=== PATIENT | male | born 1945 | race Caucasian/White ===

== ENCOUNTER 2018-02-23 22:44 | Inpatient (IN) | payer MEDICARE ==
--- NOTE | 2018-02-23 23:03 | ED ---
General Adult HPI - General Chief complaint: Alcohol Stated complaint: EtOH withdrawal Time Seen by Provider: 02/23/18 22:49 Source: EMS, RN notes reviewed, old records reviewed (Records reviewed from [facility]) Mode of arrival: EMS Limitations: no limitations - History of Present Illness Initial comments: Patient is a pleasant 72-year-old male presenting to the emergency department with alcohol withdrawal. Patient states she normally drinks a quart or so per week. Patient states he drank a quart daily for a couple of days and then discontinued recently. Of note this is inconsistent with history from [facility]. Patient feels shaky at this time. Patient denies any confusion or any hallucinations. Patient states he has not gone through alcohol withdrawal past. At [facility] patient was found to have high lactic acid and low magnesium. Patient admits to not eating or drinking well recently. Patient denies any fever or cough or abdominal pain or dysuria. - Related Data Allergies Allergy/AdvReac Type Severity Reaction Status Date / Time No Known Allergies Allergy Verified 02/23/18 22:50 Review of Systems ROS Statement: Those systems with pertinent positive or pertinent negative responses have been documented in the HPI. ROS Other: All systems not noted in ROS Statement are negative. Constitutional: Denies: fever, chills, weakness, weight change, night sweats Eyes: Denies: eye pain ENT: Denies: ear pain Respiratory: Denies: cough Cardiovascular: Denies: chest pain Endocrine: Reports: fatigue Gastrointestinal: Denies: abdominal pain Genitourinary: Denies: dysuria Musculoskeletal: Denies: back pain Skin: Denies: rash Neurological: Denies: headache, weakness, confusion Psychiatric: Denies: auditory hallucinations, visual hallucinations Past Medical History Past Medical History: No Reported History History of Any Multi-Drug Resistant Organisms: None Reported Past Surgical History: Orthopedic Surgery Additional Past Surgical History / Comment(s): left leg surgery, right arm Past Psychological History: No Psychological Hx Reported Smoking Status: Former smoker Past Alcohol Use History: Abuse, Daily, Heavy General Exam Limitations: no limitations General appearance: alert, in no apparent distress, other (Resting tremor is present) Head exam: Present: atraumatic Eye exam: Present: normal appearance, PERRL ENT exam: Present: normal oropharynx Neck exam: Present: normal inspection Respiratory exam: Present: normal lung sounds bilaterally Cardiovascular Exam: Present: regular rate, normal rhythm GI/Abdominal exam: Present: soft. Absent: tenderness Extremities exam: Present: normal inspection Neurological exam: Present: alert, oriented X3, CN II-XII intact. Absent: motor sensory deficit Expanded Neurological exam: Present: protecting the airway Patient oriented to: Present: person, place, time Cranial nerves: EOM's Intact: Normal Motor strength exam: RUE: 5, LUE: 5, RLE: 5, LLE: 5 Eye Response: (4) open spontaneously Motor Response: (6) obeys commands Verbal Response: (5) oriented Psychiatric exam: Present: normal affect, normal mood Skin exam: Present: normal color Course Vital Signs 02/23/18 22:45 Temperature 99.0 F Pulse Rate 95 Respiratory 18 Rate Blood Pressure 174/87 O2 Sat by Pulse 97 Oximetry - Reevaluation(s) Reevaluation #1: 02/23/18 23:04 Patient is no fever and no source of infection. Patient also has no elevated white blood cell count. Patient is not felt to be sepsis criteria. Urinalysis shows no signs of infection. Chest x-ray is reported as no acute abnormality. Lactic acidosis is likely from withdrawal or dehydration. Patient received 2 mg of magnesium. Magnesium will be rechecked. Patient will have continued IV fluids. Case was discussed in detail with Dr. Holland, [facility], who will admit for hospital call. Disposition Clinical Impression: Alcohol withdrawal syndrome, Hypomagnesemia, Lactic acidosis Disposition: ADMITTED IP TO THIS HOSP Is patient prescribed a controlled substance at d/c from ED?: No Referrals: None,Stated [Primary Care Provider] - 1-2 days Decision Time: 23:07
[2018-02-23] MEDS ORDERED: LORazepam 2 MG/ML INJ IV STA (23:04)
[2018-02-23] MEDS ORDERED: SODIUM CHLORIDE 0.9% 500 ML 500 ML IV ONE (23:04)
[2018-02-23] MEDS ORDERED: THIAMINE 100 MG/ML 2 ML VIAL IM STA (23:07)
[2018-02-23] MEDS ORDERED: NALOXONE 0.4 MG/ML 1 ML VIAL IV PRN (23:08)
[2018-02-23] MEDS: SODIUM CHLORIDE 0.9% 1,000 ML IV SCH (23:16)
--- NOTE | 2018-02-24 00:46 | P.HPIM ---
History of Present Illness H&P Date: 02/23/18 Chief Complaint: Alcohol withdrawal 72-year-old male with history of hypertension not currently on medications, history of noncompliance, history of vocal abuse Patient was transferred from different facility due to severe alcohol withdrawal pending DTs and to rule out any underlying infections. Upon interviewing the patient he claimed to have been sober for 3 years and went back to drinking few days ago and he was drinking for 3-4 days straight 1/ 5 of vodka every night and then he quit 2 days ago and today started noticing going into withdrawal syndrome which shakes and ataxia he denies any visual or auditory or tactile hallucinations. He reports history of DTs in the past. Patient has labs done on the other facility which showed acute alcoholic hepatitis, lactic acidosis, hypokalemia, hypomagnesemia, with elevated alcohol level, and benzos in the urine drug screen Otherwise patient denies any headache changes in his vision or hearing denies any nausea vomiting denies any chest pain or trouble breathing he reports occasional cough, denies any GI bleeding denies any abdominal pain denies any nausea vomiting or diarrhea. Review of Systems Pertinent positives as noted in HPI. All other systems were reviewed and are negative Past Medical History Past Medical History: No Reported History History of Any Multi-Drug Resistant Organisms: None Reported Past Surgical History: Orthopedic Surgery Additional Past Surgical History / Comment(s): left leg surgery, right arm Past Psychological History: No Psychological Hx Reported Smoking Status: Former smoker Past Alcohol Use History: Abuse, Daily, Heavy Medications and Allergies Home Medications Medication Instructions Recorded Confirmed Type Potassium Chloride [Klor-Con 20] 20 meq PO DAILY 02/23/18 02/23/18 History Triamcinolone 0.1% Cream [Kenalog 1 applic TOPICAL BID PRN 02/23/18 02/23/18 History 0.1% Cream] Allergies Allergy/AdvReac Type Severity Reaction Status Date / Time No Known Allergies Allergy Verified 02/23/18 23:21 Physical Exam Vitals: Vital Signs Temp Pulse Resp BP Pulse Ox 02/24/18 00:21 84 16 138/75 95 02/23/18 22:45 99.0 F 95 18 174/87 97 Intake and Output 02/23/18 02/23/18 02/24/18 14:59 22:59 06:59 Other: Weight 104.326 kg Constitutional: No acute distress, conversant, pleasant, disheveled Eyes: Anicteric sclerae, moist conjunctiva, no lid-lag Pupils equal round reactive to light ENMT: NC/AT, multiple scabs over the vertex of the head, with seborrheic keratosis Oropharynx clear, no erythema, exudates Neck: Supple, FROM, no masses, or JVD No carotid bruits No thyromegaly Lungs: Clear to auscultation Clear to percussion Normal respiratory effort, no accessory muscle use Cardiovascular: Heart regular in rate and rhythm, No murmurs, gallops, or rubs No peripheral edema Abdominal: Soft Nontender, no guarding, rebound or rigidity Abdomen moving with respiration Normoactive bowel sounds No hepatomegaly, No splenomegaly No palpable mass No abdominal wall hernia noted Skin: Normal temperature, tone, texture, turgor No induration No subcutaneous nodules Seborrheic keratosis of the scalp with multiple excoriation dillon and superficial abrasions Extremities: No digital cyanosis No clubbing Pedal pulses intact and symmetrical Radial pulses intact and symmetrical No calf tenderness Psychiatric: Alert and oriented to person, place and not to time Appropriate affect fair judgment Neuro Muscles Strength 5/5 in all 4 extremities Sensation to light touch grossly present throughout Cranial nerves II-XII grossly intact No focal sensory deficits Patient has ataxia Lymphatics: no palpable cervical or supraclavicular , or inguinal lymph nodes Results Labs: Abnormal Lab Results - Last 24 Hours (Table) 02/23/18 Range/Units 23:34 Magnesium 1.4 L (1.6-2.3) mg/dL Assessment and Plan Assessment: 72-year-old male with history of hypertension not currently on medications and alcohol abuse, patient claims that he has been sober for 3 yearshowever over the past 3-4 days he started drinking for 3 consecutive days drinking about 1/5 of vodka, he quit drinking 2 days ago and started going into DTs and withdrawal as he had withdrawal syndrome and DVTs in the past.patient was transferred from different facility to rule out sepsis admitted as an inpatient due to alcohol withdrawal pending DTs with anticipated length of stay of more than 48 hours Plan: Alcohol abuse Withdrawal syndrome pending DTs Seizure precautions Fall precautions Aggressive IV fluid hydration Multivitamin and thiamine Benzos when necessary per CIWA scale Patient counseled to quit alcohol abuse History of hypertension currently not on medications Currently blood pressure seems to be controlled Lactic acidosis second to all call abuse currently resolved Hypokalemia replace by mouth and follow-up levels Hypomagnesemia secondary to decreased by mouth intake, replace IV and follow-up levels Acute alcoholic hepatitis Continue to monitor liver function Tobacco smoking abuse patient counseled to quit smoking nicotine replacement therapy offered DVT prophylaxis heparin subcu 3 times a day Surrogate decision-maker: Patient CODE STATUS: Full code Discussed with: Patient, ER, RN Anticipated discharge: 48-[address]: Home A total of 60 minutes was spent on the care of this complex patient more than 50 % of the time was spent in counseling and care coordination.
[2018-02-24] MEDS: SODIUM CHLORIDE 0.9% 1,000 ML IV SCH ×4 (00:48→23:13)
[2018-02-24] MEDS ORDERED: MAGNESIUM SULFATE-D5W PMX 1 GM in DEXTROSE/WATER 1 100ML.BAG IVPB ONE (01:00)
[2018-02-24] MEDS: LORazepam 2 MG/ML INJ IV PRN ×11 (01:34→21:52)
[2018-02-24 02:53] LABS: Glucose,Whole Blood 126 mg/dL (75-99)
[2018-02-24] MEDS ORDERED: HALOPERIDOL LACTATE 5 MG/ML 1 ML VIAL IM STA ×2 (07:16→22:56)
[2018-02-24] MEDS: HEPARIN SODIUM,PORCINE 5,000 UNIT/ML 1 ML VIAL SQ SCH ×3 (07:42→23:13)
[2018-02-24 08:57] LABS: Basophils % (A) 0 %; Eosinophils # (A) 0.1 k/uL (0-0.7); Eosinophils % (A) 1 %; HCT 44.9 % (39.0-53.0); HGB 14.6 gm/dL (13.0-17.5); Lymphocytes # (A) 1.5 k/uL (1.0-4.8); Lymphocytes % (A) 28 %; MCH 33.9 pg (25.0-35.0); MCHC 32.6 g/dL (31.0-37.0); MCV 103.8 fL (80.0-100.0); Macrocytosis Slight; Mean Platelet Volume 7.4; Monocytes # (A) 0.3 k/uL (0-1.0); Monocytes % (A) 6 %; Neutrophils # (A) 3.4 k/uL (1.3-7.7); Neutrophils % (A) 64 %; RBC 4.33 m/uL (4.30-5.90); RDW 12.8 % (11.5-15.5); WBC 5.4 k/uL (3.8-10.6)
[2018-02-24 09:17] LABS: Platelet Count 87 k/uL (150-450)
[2018-02-24 09:29] LABS: ALT 59 U/L (21-72); AST 98 U/L (17-59); Albumin 3.9 g/dL (3.5-5.0); Alkaline Phosphatase 76 U/L (38-126); Anion Gap 8 mmol/L; Blood Urea Nitrogen 12 mg/dL (9-20); Calcium 8.5 mg/dL (8.4-10.2); Carbon Dioxide 30 mmol/L (22-30); Chloride 99 mmol/L (98-107); Glucose 110 mg/dL (74-99); Magnesium 1.5 mg/dL (1.6-2.3); Potassium 3.5 mmol/L (3.5-5.1); Sodium 137 mmol/L (137-145); Total Bilirubin 1.8 mg/dL (0.2-1.3); Total Protein 6.6 g/dL (6.3-8.2)
[2018-02-24 09:58] VITALS: BMI 24.3
[2018-02-24] MEDS: THIAMINE 100 MG TAB PO SCH ×2 (11:27→17:35)
[2018-02-24] MEDS: MULTIVITAMINS, THERA 1 EACH TAB PO SCH (11:27)
--- NOTE | 2018-02-24 14:13 | P.PN ---
Progress Note - Text Progress Note Date: 02/24/18 72-year-old male with PMH of alcohol abuse presents the ED for alcohol withdrawals, pending DTs and to rule out any underlying infections. Patient was seen and examined at 2:00PM. No acute events overnight. Patient has no complaints at this time. He denies any nausea, vomiting, fever, cough, chest pain, shortness of breath, palpitations, changes in urination or bowel habits. No changes in appetite or weight. CIWA at 11. Patient is in no acute distress. Fine tremors noted in the fingertips bilaterally. RRR. Normal S1 and S2. No murmurs, rubs or gallops. Clear to auscultation bilaterally Alert and oriented x 3 (Knows hospital name, President's name and what year it is) Assessment and Plan 1. Alcohol withdrawal 2. History of hypertension 3. Hypo-Magnesium 4. Transaminitis 1. CIWA 11. CIWA protocol and Ativan IV PRN for CIWA > 8. Continue multivitamin and Thiamine 100 milligrams by mouth twice a day. Fall and seizure precautions. 2. BP 163/86. Monitor vitals, adjust medications as necessary. 3. Magnesium 1.5 this morning, likely secondary to alcohol abuse. Replace with a medium sulfate 2 g IV 1. 4. Total bilirubin 1.8, AST 98. Likely secondary to alcohol abuse. Daily CMP. Patient is being treated for alcohol withdrawal, on CIWA protocol. He is pending clinical improvement. Likely DC in 1-2 days.
[2018-02-24] MEDS: MAGNESIUM SULFATE-D5W PMX 1 GM in DEXTROSE/WATER 1 100ML.BAG IVPB SCH ×2 (14:35→16:10)
[2018-02-24] MEDS: chlordiazePOXIDE 25 MG CAP PO SCH ×2 (18:03→20:49)
[2018-02-24] MEDS: NYSTATIN 100,000 UNIT/ML SUSP 500,000 UNIT/5 ML CUP PO SCH ×2 (18:03→20:53)
[2018-02-25] MEDS: LORazepam 2 MG/ML INJ IV PRN ×2 (01:35→05:49)
[2018-02-25] MEDS: SODIUM CHLORIDE 0.9% 1,000 ML IV SCH ×3 (05:49→20:42)
[2018-02-25 08:03] VITALS: RESP 18
[2018-02-25] MEDS: NYSTATIN 100,000 UNIT/ML SUSP 500,000 UNIT/5 ML CUP PO SCH ×4 (08:32→20:42)
[2018-02-25] MEDS: chlordiazePOXIDE 25 MG CAP PO SCH (08:32)
[2018-02-25] MEDS: HEPARIN SODIUM,PORCINE 5,000 UNIT/ML 1 ML VIAL SQ SCH ×3 (08:32→23:30)
--- NOTE | 2018-02-25 08:41 | US ---
EXAMINATION TYPE: US abdomen limited DATE OF EXAM: 02/25/2018 COMPARISON: NONE CLINICAL HISTORY: Elevated T Bili. US of gallbladder and liver. EXAM MEASUREMENTS: Liver Length: 18.2 cm Gallbladder Wall: 0.2 cm CBD: 0.5 cm Right Kidney: 13.1 x 7.0 x 6.0 cm There is no ascites. Pancreas: Tail obscured by overlying bowel gas Liver: Increased attenuation. cyst left lobe = 1.5 x 1.6 x 1.1 cm Gallbladder: wnl Evidence for sonographic De León's sign: No CBD: wnl Right Kidney: No hydronephrosis or masses seen and there is normal cortical medullary differentiatio n Sub optimal exam overall d/t large amounts of overlying bowel gas. IMPRESSION: Findings may represent hepatic steatosis with hepatomegaly, hepatocellular disease, small cystic focus present as described.. Limitations in exam.
[2018-02-25 09:04] LABS: ALT 165 U/L (21-72); AST 556 U/L (17-59); Albumin 3.5 g/dL (3.5-5.0); Alkaline Phosphatase 68 U/L (38-126); Anion Gap 8 mmol/L; Blood Urea Nitrogen 6 mg/dL (9-20); Calcium 8.3 mg/dL (8.4-10.2); Carbon Dioxide 30 mmol/L (22-30); Chloride 99 mmol/L (98-107); Glucose 96 mg/dL (74-99); Potassium 2.8 mmol/L (3.5-5.1); Sodium 137 mmol/L (137-145); Total Bilirubin 1.7 mg/dL (0.2-1.3); Total Protein 6.2 g/dL (6.3-8.2)
[2018-02-25 09:19] LABS: Magnesium 1.5 mg/dL (1.6-2.3)
[2018-02-25] MEDS: MAGNESIUM SULFATE-D5W PMX 1 GM in DEXTROSE/WATER 1 100ML.BAG IVPB SCH ×4 (11:30→14:42)
[2018-02-25] MEDS: THIAMINE 100 MG TAB PO SCH ×2 (13:24→17:46)
[2018-02-25] MEDS: POTASSIUM CHLORIDE ER 20 MEQ TAB.ER PO SCH ×2 (13:24→14:02)
[2018-02-25] MEDS: MULTIVITAMINS, THERA 1 EACH TAB PO SCH (13:25)
--- NOTE | 2018-02-25 13:27 | P.CN ---
Psychiatric Consult - . Consult date: 02/25/18 Consult:: 02/25/18 09:35 Capacity 02/25/18 13:22 Assessment and Plan Assessment: 72-year-old male with history of hypertension not currently on medications, history of noncompliance, history of vocal abuse Patient was transferred from different facility due to severe alcohol withdrawal pending DTs and to rule out any underlying infections. Upon interviewing the patient he claimed to have been sober for 3 years and went back to drinking few days ago and he was drinking for 3-4 days straight 1/ 5 of vodka every night and then he quit 2 days ago and today started noticing going into withdrawal syndrome which shakes and ataxia he denies any visual or auditory or tactile hallucinations. He reports history of DTs in the past. Patient has labs done on the other facility which showed acute alcoholic hepatitis, lactic acidosis, hypokalemia, hypomagnesemia, with elevated alcohol level, and benzos in the urine drug screen Otherwise patient denies any headache changes in his vision or hearing denies any nausea vomiting denies any chest pain or trouble breathing he reports occasional cough, denies any GI bleeding denies any abdominal pain denies any nausea vomiting or diarrhea. Past Medical History Past Medical History: No Reported History History of Any Multi-Drug Resistant Organisms: None Reported Past Surgical History: Orthopedic Surgery Additional Past Surgical History / Comment(s): left leg surgery, right arm Past Psychological History: No Psychological Hx Reported Smoking Status: Former smoker Past Alcohol Use History: Abuse, Daily, Heavy Medications and Allergies Home Medications Medication Instructions Recorded Confirmed Type Potassium Chloride [Klor-Con 20] 20 meq PO DAILY 02/23/18 02/23/18 History Triamcinolone 0.1% Cream [Kenalog 1 applic TOPICAL BID PRN 02/23/18 02/23/18 History 0.1% Cream] Allergies Allergy/AdvReac Type Severity Reaction Status Date / Time No Known Allergies Allergy Verified 02/23/18 23:21 Mental Status Examination - This is a 72-year-old male who looks disheveled bizarre mumbles slow. He is not a reliable historian. He is not a reliable person to interview for psychiatric since he is unable to answer questions like orientation thought content he admits to not being suicidal. He denies hallucinations he is very concrete circumstantial and tangential. His concentrations impaired, remote memory impaired, recent memory impaired, intelligence below average, judgment poor, and no insight. 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 Thank you for the consult Teddy Pearce D.O. PhD (1) Encephalopathy chronic Current Visit: Yes Status: Acute Priority: High Code(s): G93.49 - OTHER ENCEPHALOPATHY SNOMED Code(s): 29284891 (2) Major neurocognitive disorder due to another medical condition with behavioral disturbance Current Visit: Yes Status: Acute Priority: High Code(s): F02.81 - DEMENTIA IN OTH DISEASES CLASSD ELSWHR W BEHAVIORAL DISTURB SNOMED Code(s): 399764612 Time with Patient: Less than 30
--- NOTE | 2018-02-25 16:16 | P.PN ---
Subjective Progress Note Date: 02/25/18 Principal diagnosis: EtOH withdrawal, altered mental status Patient was seen and examined. No acute events overnight. Patient has no complaints this morning, wants to go home. Objective - Vital Signs Vital signs: Vital Signs Temp 96.6 F L 02/25/18 11:14 Pulse 77 02/25/18 11:14 Resp 18 02/25/18 11:14 BP 134/76 02/25/18 11:14 Pulse Ox 94 L 02/25/18 11:14 Intake & Output 02/24/18 02/25/18 02/25/18 18:59 06:59 18:59 Intake Total 590 Balance 590 Weight 81.5 kg Intake: Oral 590 Other: Voiding Method Urinal Diaper Diaper Incontinent # Voids 3 4 1 - Exam General: [non toxic], [no distress], [appears at stated age] Derm: [warm], [dry] Head: [atraumatic], [normocephalic], [symmetric] Eyes: [EOMI], [no lid lag], [anicteric sclera] Mouth: [no lip lesion], [mucus membranes moist] Cardiovascular: [S1S2 reg], [no murmur], [positive DP pulse bilateral] Lungs: [CTA bilateral], [no rhonchi, no rales] , [no accessory muscle use] Abdominal: [soft], [ nontender to palpation], [no guarding], [no appreciable organomegaly] Ext: [no gross muscle atrophy], [no edema], [no contractures] Neuro: [no focal neuro deficits] Psych: Circumferential thinking - Labs CBC & Chem 7: 02/24/18 08:10 02/25/18 08:22 Labs: Abnormal Lab Results - Last 24 Hours (Table) 02/25/18 Range/Units 08:22 Potassium 2.8 L (3.5-5.1) mmol/L BUN 6 L (9-20) mg/dL Creatinine 0.45 L (0.66-1.25) mg/dL Calcium 8.3 L (8.4-10.2) mg/dL Magnesium 1.5 L (1.6-2.3) mg/dL Total Bilirubin 1.7 H (0.2-1.3) mg/dL AST 556 H (17-59) U/L ALT 165 H (21-72) U/L Total Protein 6.2 L (6.3-8.2) g/dL Assessment and Plan Assessment: Assessment and Plan 1. Alcohol withdrawal 2. History of hypertension 3. Hypo-Magnesium and Hypokalemia 4. Transaminitis 1. CIWA 8. CIWA protocol and Ativan IV PRN for CIWA > 8. Received Librium yesterday but will be discontinued due to transaminitis. Continue multivitamin and Thiamine 100 milligrams by mouth twice a day. Fall and seizure precautions. 2. BP 134/76. Monitor vitals, adjust medications as necessary. 3. Magnesium 1.5 and K 2.8 this morning, likely secondary to alcohol abuse. Replace with a magnesium sulfate 4 g IV 1, K 80 meq PO x 1. 4. Total bilirubin 1.8 to 1.7, AST 98 to 556, ALT to 165. Likely secondary to alcohol abuse and acute increase in LFTs due to Librium. DC Librium. Abdominal US shows hepatic steatosis with hepatomegaly. Daily CMP. Patient is being treated for alcohol withdrawal, on CIWA protocol. He is pending clinical improvement. Reports of altered mentation of the patient recently, saying inappropriate things to her grown children, living in a barn. She would like to start the process for conservatorship. Psychiatric evaluation to determine competency.
[2018-02-25 18:00] LABS: Folate, Serum 12.4 ng/mL
[2018-02-26] MEDS: SODIUM CHLORIDE 0.9% 1,000 ML IV SCH (06:19)
[2018-02-26] MEDS: HEPARIN SODIUM,PORCINE 5,000 UNIT/ML 1 ML VIAL SQ SCH (08:21)
[2018-02-26] MEDS: NYSTATIN 100,000 UNIT/ML SUSP 500,000 UNIT/5 ML CUP PO SCH ×2 (08:21→11:42)
[2018-02-26 08:23] LABS: HCT 47.8 % (39.0-53.0); HGB 15.6 gm/dL (13.0-17.5); MCH 34.3 pg (25.0-35.0); MCHC 32.7 g/dL (31.0-37.0); Macrocytosis Slight; Mean Platelet Volume 8.2; RBC 4.55 m/uL (4.30-5.90); RDW 12.5 % (11.5-15.5)
[2018-02-26 08:36] LABS: ALT 158 U/L (21-72); AST 360 U/L (17-59); Albumin 3.6 g/dL (3.5-5.0); Alkaline Phosphatase 67 U/L (38-126); Anion Gap 9 mmol/L; Blood Urea Nitrogen 8 mg/dL (9-20); Calcium 8.5 mg/dL (8.4-10.2); Carbon Dioxide 28 mmol/L (22-30); Chloride 101 mmol/L (98-107); Glucose 103 mg/dL (74-99); Potassium 3.3 mmol/L (3.5-5.1); Sodium 138 mmol/L (137-145); Total Bilirubin 1.6 mg/dL (0.2-1.3); Total Protein 6.3 g/dL (6.3-8.2)
[2018-02-26 08:42] LABS: Platelet Count 90 k/uL (150-450)
[2018-02-26] MEDS ORDERED: Potassium Replacement Protocol 1 EACH MISC MISCELLANE PRN (09:02)
[2018-02-26] MEDS ORDERED: POTASSIUM CHLORIDE ER 20 MEQ TAB.ER PO STA (10:42)
--- NOTE | 2018-02-26 11:11 | P.DS ---
Providers Date of admission: 02/23/18 23:07 Expected date of discharge: 02/26/18 Attending physician: Elisabet Shah MD Consults: 02/25/18 08:44 Consult Physician Stat Consulting Provider: Teddy Pearce Consult Reason/Comments: Decisional capacity, concerns for guardianship by , h/o TBI and EtOH Do you want consulting provider notified?: Yes Primary care physician: Stated None - Discharge Diagnosis(es) (1) Hypokalemia Current Visit: Yes Status: Acute (2) Transaminitis Current Visit: Yes Status: Acute (3) Alcohol withdrawal syndrome Current Visit: Yes Status: Acute (4) Encephalopathy chronic Current Visit: Yes Status: Acute Priority: High (5) Hypomagnesemia Current Visit: Yes Status: Acute (6) Major neurocognitive disorder due to another medical condition with behavioral disturbance Current Visit: Yes Status: Acute Priority: High Hospital Course: 72-year-old male with history of hypertension not currently on medications, history of noncompliance, history of vocal abuse Patient was transferred from different facility due to severe alcohol withdrawal pending DTs and to rule out any underlying infections. Upon interviewing the patient he claimed to have been sober for 3 years and went back to drinking few days ago and he was drinking for 3-4 days straight 1/ 5 of vodka every night and then he quit 2 days ago and today started noticing going into withdrawal syndrome which shakes and ataxia he denies any visual or auditory or tactile hallucinations. He reports history of DTs in the past. Patient has labs done on the other facility which showed acute alcoholic hepatitis, lactic acidosis, hypokalemia, hypomagnesemia, with elevated alcohol level, and benzos in the urine drug screen. With regard to his alcohol abuse, patient was placed on CIWA protocol and was given Ativan IV as needed for CIWA greater than 8. Patient received 1 day of Librium by mouth but was discontinued due to worsening transaminitis. He was given multivitamin, thiamine by mouth twice a day. He was placed on fall and seizure precautions. Patient was also noted to be hypomagnesemic and hypokalemic throughout his admission. His magnesium was replaced IV and his potassium was replaced by mouth. Patient was also noted to have elevated transaminitis. Total bilirubin was 1.8, AST of 98, ALTs of 165 on admission. His bilirubin was 1.6, AST of 360, ALTs of 158 on discharge. This was thought to be secondary to Librium use. Abdominal ultrasound was done which showed hepatic steatosis and hepatomegaly. There was some concern of the regarding decisional making capacity of the patient. According to the , patient had been drinking for the past 10 years , lives in their barn, has not showered for 60 weeks and has not eaten for 6-7 days. He also associates with his 18-year-old grandson, and inappropriate language is involved. also reports that the patient's hides large amounts of money in his barn. Psychiatry was consulted and diagnosed the patient with neurocognitive disorder moderate to severe and encephalopathy chronic in nature. Recommendation was made to pursue a thorough outpatient workup including MRI of the brain and neuropsych testing. Patient seen and examined prior to discharge. No acute events overnight. Patient is able to be seen ambulating with PT. He has no complaints today. He denies any nausea, vomiting, fever, cough, chest pain, shortness of breath or palpitations. No changes in urination or bowel habits. General: [non toxic], [no distress], [appears at stated age] Derm: [warm], [dry] Head: [atraumatic], [normocephalic], [symmetric] Eyes: [EOMI], [no lid lag], [anicteric sclera] Mouth: [no lip lesion], [mucus membranes moist] Cardiovascular: [S1S2 reg], [no murmur], [positive DP pulse bilateral] Lungs: [CTA bilateral], [no rhonchi, no rales] , [no accessory muscle use] Abdominal: [soft], [ nontender to palpation], [no guarding], [no appreciable organomegaly] Ext: [no gross muscle atrophy], [no edema], [no contractures] Neuro: [no focal neuro deficits] Psych: [Alert and oriented to person, place and time] Assessment and Plan 1. Alcohol withdrawal 2. Neurocognitive disorder moderate to severe and encephalopathy chronic in nature 2. History of hypertension 3. Hypo-Magnesium and Hypokalemia 4. Transaminitis 1. CIWA 0. CIWA protocol and Ativan IV PRN for CIWA > 8. Received Librium yesterday but will be discontinued due to transaminitis. Continue multivitamin and Thiamine 100 milligrams by mouth twice a day. Fall and seizure precautions. He will need to obtain a CMP within 3 days of discharge. 2. Chronic. h/o TBI and > 10 years of EtOH use. Patient has no FND. TSH, RPR and B12 is within normal limits. Per Psych, will need MRI brain and thorough evaluation in the outpatient setting. 2. BP 143/95. Monitor vitals, adjust medications as necessary. 3. K 3.3 this morning, likely secondary to alcohol abuse. Replace with K 40 meq PO x 1. 4. Total bilirubin 1.8 to 1.6, AST 98 to 556 to 360, ALT to 165 to 158. Likely secondary to alcohol abuse and acute increase in LFTs due to Librium. DC Librium. Abdominal US shows hepatic steatosis with hepatomegaly. Daily CMP. His alcohol withdrawal is resolved. Psych is evaluated the patient and deemed him not capable of making decisions for himself. He will need a thorough evaluation in the outpatient setting. She would like to start the process for conservatorship. Patient be discharged home today with his . I do not think that the patient is capable of making decisions for himself, would recommend guardianship. Pertinent Studies: Abdominal ultrasound Patient Condition at Discharge: Stable Plan - Discharge Summary New Discharge Prescriptions: New Folic Acid 1 mg PO DAILY #30 tablet Multivitamins, Thera [Multivitamin (formulary)] 1 each PO DAILY@1200 #30 tab Thiamine [Vitamin B-1] 100 mg PO BID@1200,1700 #60 tab Discharge Medication List Folic Acid 1 mg PO DAILY #30 tablet 02/26/18 [Rx] Multivitamins, Thera [Multivitamin (formulary)] 1 each PO DAILY@1200 #30 tab [Rx] Thiamine [Vitamin B-1] 100 mg PO BID@1200,1700 #60 tab 02/26/18 [Rx] Follow up Appointment(s)/Referral(s): None,Stated [Primary Care Provider] - 1-2 days Ambulatory/Diagnostic Orders: Comprehensive Metabolic Panel [LAB.AMB] Location: None Selected Magnesium [LAB.AMB] Time Frame: 3 Days, Location: None Selected Miscellaneous Radiology Order [RAD.AMB] Time Frame: 1 Week, Location: None Selected Activity/Diet/Wound Care/Special Instructions: Diet: HEART healthy Please follow-up with her primary care provider within 1-2 days of discharge. Please obtain a CMP, magnesium and MRI brain all of which will be followed up with your primary care provider. Please refrain from drinking. Please take all medications as advised. Discharge Disposition: HOME SELF-CARE
[2018-02-26] MEDS: THIAMINE 100 MG TAB PO SCH (11:41)
[2018-02-26] MEDS: MULTIVITAMINS, THERA 1 EACH TAB PO SCH (11:41)
[2018-02-26 12:36] VITALS: BP 136/94; PULSE 105; TEMP 97.2
== END 2018-02-26 13:00 | disposition home or self-care (01) | DRG 897 ==
LOC: EC 22:44 → 3NMEDONC 23:07
PROVIDERS: ADMIT Internal Medicine; ATTEND Internal Medicine
DX: F10.231 Alcohol dependence with withdrawal delirium (principal); E87.2 Acidosis; G93.49 Other encephalopathy; E83.42 Hypomagnesemia; E87.6 Hypokalemia; F02.80 Dementia in other diseases classified elsewhere, unspecified severity, without behavioral disturbance, psychotic disturbance, mood disturbance, and anxiety; F17.200 Nicotine dependence, unspecified, uncomplicated; I10 Essential (primary) hypertension; K76.0 Fatty (change of) liver, not elsewhere classified; R32 Unspecified urinary incontinence; T42.4X5A Adverse effect of benzodiazepines, initial encounter; R74.8 Abnormal levels of other serum enzymes; Z87.820 Personal history of traumatic brain injury; Z71.6 Tobacco abuse counseling
CPT/HCPCS: 76705; 80053; 82607; 82746; 83605; 83735; 84443; 85025; 85027; 86780; 96361; 96372; 96374; 99285

== ENCOUNTER 2018-06-07 09:03 | Inpatient (IN) | payer MEDICARE ==
--- NOTE | 2018-06-07 10:03 | ED ---
Lower Extremity Injury HPI - General Chief Complaint: Extremity Injury, Lower Stated Complaint: lt hip injury Time Seen by Provider: 06/07/18 09:22 Source: patient Mode of arrival: wheelchair Limitations: no limitations - History of Present Illness Initial Comments: This a 73-year-old male presents emergency Department chief complaint of fall, left hip pain. Patient states he fell 3 days ago was seen at [facility] and states that he had x-rays in which they told him that he may have a fracture. Patient's found out AMA. Patient states that that he says pain with ambulation. Patient states that he's had no prior hip fracture. Denies any head injury no loss conscious. Denies any chest pain or shortness of breath. No other extremity injury. - Related Data Home Medications Medication Instructions Recorded Confirmed Magnesium Oxide 400 mg PO DAILY 06/07/18 06/07/18 Potassium Chloride ER [K-Dur 20] 20 meq PO DAILY 06/07/18 06/07/18 Thiamine [Vitamin B-1] 250 mg PO DAILY 06/07/18 06/07/18 Allergies Allergy/AdvReac Type Severity Reaction Status Date / Time No Known Allergies Allergy Verified 06/07/18 09:18 Review of Systems ROS Statement: Those systems with pertinent positive or pertinent negative responses have been documented in the HPI. ROS Other: All systems not noted in ROS Statement are negative. Past Medical History Past Medical History: Cancer Additional Past Medical History / Comment(s): colon cancer 2008, History of Any Multi-Drug Resistant Organisms: None Reported Past Surgical History: Orthopedic Surgery Additional Past Surgical History / Comment(s): left leg surgery, right arm, colonoscopy part of colon removed Past Anesthesia/Blood Transfusion Reactions: No Reported Reaction Past Psychological History: No Psychological Hx Reported Smoking Status: Current every day smoker Past Alcohol Use History: Abuse, Daily Past Drug Use History: None Reported - Past Family History Father History Unknown: Yes General Exam General appearance: alert, in no apparent distress Head exam: Present: atraumatic, normocephalic, normal inspection Neck exam: Present: normal inspection, full ROM. Absent: tenderness, meningismus, lymphadenopathy Respiratory exam: Present: normal lung sounds bilaterally. Absent: respiratory distress, wheezes, rales, rhonchi, stridor Cardiovascular Exam: Present: regular rate, normal rhythm, normal heart sounds. Absent: systolic murmur, diastolic murmur, rubs, gallop, clicks GI/Abdominal exam: Present: soft, normal bowel sounds. Absent: distended, te nderness, guarding, rebound, rigid Extremities exam: Present: other (Left hip mild tenderness with palpation, mild discomfort with range of motion, neurovascular intact, no ecchymosis no obvious deformity no shortening or rotation. Remaining extremity exam within normal limits) Skin exam: Present: warm, dry, intact, normal color. Absent: rash Course Vital Signs 06/07/18 06/07/18 09:15 12:08 Temperature 98.5 F 98.4 F Pulse Rate 60 94 Respiratory 18 18 Rate Blood Pressure 115/74 157/101 O2 Sat by Pulse 98 96 Oximetry Medical Decision Making - Medical Decision Making 73-year-old male presented for fall, left hip fracture. Patient has a fracture of left greater trochanter. Patient's case discussed with [facility] who recommended CT which was reviewed and recommends that patient have MRI. Since appointment was 9:15 tonight. Patient will be admitted to Dr. Velazquez service for MRI and further evaluation with medicine consult Disposition Clinical Impression: Closed left hip fracture Disposition: ADMITTED IP TO THIS HOSP Referrals: None,Stated [Primary Care Provider] - 1-2 days Time of Disposition: 12:45
--- NOTE | 2018-06-07 10:33 | XR ---
EXAMINATION TYPE: XR Hip LT and AP Pelvis DATE OF EXAM: 06/07/2018 COMPARISON: 06/03/2018 HISTORY: Pain TECHNIQUE: A single AP view of the pelvis is obtained. Two views of the left hip are obtained. FINDINGS: There is there is a displaced fracture involving the greater trochanter of the left femur which is similar in appearance to the prior exam. Arthropathy of both hips. Postsurgical change invol ving the pelvis. Remaining osseous structures intact. Vascular calcifications noted. Surgical sutures seen in the right abdomen. IMPRESSION: 1. Stable appearance of the displaced greater trochanter fracture of the left femur.
--- NOTE | 2018-06-07 12:40 | CT ---
EXAMINATION TYPE: CT hip LT wo con DATE OF EXAM: 06/07/2018 COMPARISON: Radiograph of the same date HISTORY: Left hip pain CT DLP: 437.2 mGycm Automated exposure control for dose reduction was used. FINDINGS: There is a displaced greater trochanter fracture with distraction of the fracture fragment cranially a maximum distance of 3.0 cm. The primary fracture line appears to extend in a craniocaudal direction into the greater trochanter without extent to the inferior cortical margin. No intertrochanteric fra cture is seen or femoral neck fracture. Moderate left femoral acetabular arthropathy is seen as there is some subchondral cyst formation. Acetabulum appears intact. Visualized portions of the left sacro iliac joint demonstrate no evidence of widening. There is soft tissue swelling overlying the primary fracture site and intramuscular soft tissue swelling of the hip girdle with some noted atrophy. Sever e atherosclerosis of the visualized vasculature. Mild mucosal thickening of the sigmoid colon may rel ate to incomplete distention. Prostate gland is diffusely heterogenous. No additional fracture is see n of the left hip. The primary fracture does not appear to extend IMPRESSION: REDEMONSTRATION OF DIASTASES WITHIN THE TRANSVERSELY GREATER TROCHANTERIC FRACTURE. THERE IS EXTENT I N A CRANIOCAUDAL DIMENSION OF THE FRACTURE LINE INTO THE GREATER TROCHANTER ALTHOUGH THIS DOES NOT EX TEND INTO THE INFERIOR CORTICAL MARGIN. NO ADDITIONAL FRACTURE IS SEEN. SOFT TISSUE SWELLING AND INTR AMUSCULAR EDEMA OVERLIE THE FRACTURE SITE.
[2018-06-07] MEDS ORDERED: ONDANSETRON 4 MG/2 ML VIAL IVP PRN (12:46)
[2018-06-07] MEDS ORDERED: MORPHINE SULFATE 4 MG/ML SYRINGE IV PRN (12:46)
[2018-06-07] MEDS ORDERED: ACETAMINOPHEN TAB 325 MG TAB PO PRN (12:46)
[2018-06-07] MEDS ORDERED: NALOXONE 0.4 MG/ML 1 ML VIAL IV PRN (12:46)
[2018-06-07 13:12] LABS: Basophils % (A) 0 %; Eosinophils # (A) 0.1 k/uL (0-0.7); Eosinophils % (A) 1 %; HCT 36.2 % (39.0-53.0); HGB 12.8 gm/dL (13.0-17.5); Lymphocytes # (A) 1.5 k/uL (1.0-4.8); Lymphocytes % (A) 29 %; MCHC 35.4 g/dL (31.0-37.0); MCV 95.9 fL (80.0-100.0); Mean Platelet Volume 8.1; Monocytes # (A) 0.4 k/uL (0-1.0); Monocytes % (A) 8 %; Neutrophils % (A) 59 %; Platelet Count 122 k/uL (150-450); RBC 3.78 m/uL (4.30-5.90); RDW 13.7 % (11.5-15.5); WBC 5.1 k/uL (3.8-10.6)
[2018-06-07 13:19] LABS: ALT 104 U/L (21-72); AST 203 U/L (17-59); Albumin 3.8 g/dL (3.5-5.0); Alkaline Phosphatase 72 U/L (38-126); Anion Gap 7 mmol/L; Blood Urea Nitrogen 13 mg/dL (9-20); Calcium 8.4 mg/dL (8.4-10.2); Carbon Dioxide 35 mmol/L (22-30); Chloride 94 mmol/L (98-107); Glucose 100 mg/dL (74-99); Potassium 2.9 mmol/L (3.5-5.1); Sodium 136 mmol/L (137-145); Total Bilirubin 1.4 mg/dL (0.2-1.3); Total Protein 6.5 g/dL (6.3-8.2)
[2018-06-07 13:20] LABS: INR 0.9 (<1.2); Partial Thromboplastin Time 22.4 sec (22.0-30.0); Prothrombin Time 9.6 sec (9.0-12.0)
[2018-06-07 13:31] LABS: Appearance,Urine Clear (Clear); Bilirubin,Urine Negative (Negative); Blood,Urine Negative (Negative); Color,Urine Yellow; Glucose,Urine (UA) Negative (Negative); Ketones,Urine Negative (Negative); Leukocyte Esterase,Urine Negative (Negative); Nitrite,Urine Negative (Negative); Protein,Urine Trace (Negative); Specific Gravity,Urine 1.015 (1.001-1.035)
[2018-06-07] MEDS ORDERED: LORazepam 2 MG/ML INJ IV PRN ×3 (14:10)
[2018-06-07] MEDS ORDERED: POTASSIUM CHLORIDE ER 20 MEQ TAB.ER PO STA (14:11)
[2018-06-07] MEDS ORDERED: THIAMINE 100 MG TAB PO SCH (17:00)
[2018-06-07] MEDS: HYDROcodone/APAP 5-325MG 1 EACH TAB PO PRN (18:12)
--- NOTE | 2018-06-07 18:54 | P.HPOR ---
History of Present Illness H&P Date: 06/07/18 This patient is a 73-year-old male past medical history of bilateral ankle fractures that required operative fixation, a right wrist fracture that required operative fixation, a current every day smoker, and history of colon cancer that presented to the [facility] ED today for left hip pain. Patient states he fell 4 days ago, on 06/03/18 he was walking in the parking lot. He states he tripped on a hole in the parking lot, and fell onto his buttock. He experienced immediate pain in the left hip, although he continued shopping. He presented the next day to the [facility], where x-rays were taken and he was told that he sustained a hip fracture. Patient states he was instructed to follow-up in [place] for continued evaluation and treatment of his hip fracture, although chart review reveals the patient left AMA. Patient presented to [facility] ED today, x-rays were taken of the left hip and revealed a stable- appearing displaced greater trochanter fracture of the left femur. Computed tomography scan of the left hip was obtained which re-demonstrated the greater trochanteric fracture. Patient was admitted under the care of Dr. Velazquez, with a consult placed to internal medicine for medical management. At the time of my examination, the patient states he is experiencing no pain in the left hip. He states it is only painful when he ambulates. He states he has been walking on the left lower extremity for the past 4 days. He states that progressively became more painful, to the point where he cannot bear weight on the left lower extremity due to the pain, therefore he decided to present to the [facility] ED for evaluation and treatment. He states his daughter drove him to the hospital today. Patient denies injury or pain anywhere else in the body. Patient states his pain is currently very well-controlled. Patient denies chest pain, shortness of breath, nausea, vomiting. Past Medical History Past Medical History: Cancer, Chest Pain / Angina, GERD/Reflux Additional Past Medical History / Comment(s): Colon cancer 2009 with surgery, colon polyps, pt denies ever having seizure-old medical record documents possible seizure with hypokalemia, pt states he was a heavy drinker in the past but now a weekend drinker, medical record dated 02/23/18 documents alcohol withdrawl syndrome/chronic encephalopathy/neurocognitive disorder/behavioral disturbance/hypokalemia and hypomagnesemia. History of Any Multi-Drug Resistant Organisms: None Reported Past Surgical History: Orthopedic Surgery Additional Past Surgical History / Comment(s): L leg ORIF with hardware, R arm fracture with hardware, colectomy d/t cancer, colonoscopies, 2013 cardiac cath- mild disease, larygoscopy with polypectomy, vasectomy. Past Anesthesia/Blood Transfusion Reactions: No Reported Reaction Smoking Status: Current every day smoker - Past Family History Father History Unknown: Yes Family Medical History: Coronary Artery Disease (CAD), Myocardial Infarction ([place]) Additional Family Medical History / Comment(s): Father of a [place] at the age og 52 yrs. Mother Additional Family Medical History / Comment(s): Mother was a smoker/drinker and at the age of 85yrs. Medications and Allergies Home Medications Medication Instructions Recorded Confirmed Type Magnesium Oxide 400 mg PO DAILY 06/07/18 06/07/18 History Potassium Chloride ER [K-Dur 20] 20 meq PO DAILY 06/07/18 06/07/18 History Thiamine [Vitamin B-1] 250 mg PO DAILY 06/07/18 06/07/18 History Allergies Allergy/AdvReac Type Severity Reaction Status Date / Time No Known Allergies Allergy Verified 06/07/18 09:18 Physical Examination On examination, the patient is sitting up in bed in no apparent distress. He is alert and oriented 3. His breathing appears nonlabored. His head is atraumatic and normocephalic. On inspection of the left lower extremity, there are no open wounds or lacerations. There is ecchymosis of the lateral hip. There is no pain on palpation of the left hip. There is no pain on palpation of the left knee and the left ankle. The patient is able to plantar flex and dorsiflex the ankle, and wiggle the toes without issue. The foot is warm and well- perfused with brisk capillary refill to toes. Sensation is intact to light touch of the dorsal and plantar foot, as well as the first dorsal webspace. Neurovascular is intact of the left lower extremity. Abrasion of the left elbow. Results Left hip x-ray 06/07/18: Stable appearance of a displaced greater trochanter fracture left femur. Left hip CT scan 06/07/18: Redemonstration of a stablegreater trochanter fracture of the left femur. - Labs Labs: Abnormal Lab Results - Last 24 Hours (Table) 06/07/18 06/07/18 06/07/18 Range/Units 12:37 12:37 13:20 RBC 3.78 L (4.30-5.90) m/uL Hgb 12.8 L (13.0-17.5) gm/dL Hct 36.2 L (39.0-53.0) % Plt Count 122 L (150-450) k/uL Sodium 136 L (137-145) mmol/L Potassium 2.9 L (3.5-5.1) mmol/L Chloride 94 L (98-107) mmol/L Carbon Dioxide 35 H (22-30) mmol/L Creatinine 0.57 L (0.66-1.25) mg/dL Glucose 100 H (74-99) mg/dL Total Bilirubin 1.4 H (0.2-1.3) mg/dL AST 203 H (17-59) U/L ALT 104 H (21-72) U/L Urine Protein Trace H (Negative) H & H 06/07/18 Range/Units 12:37 Hgb 12.8 L (13.0-17.5) gm/dL Hct 36.2 L (39.0-53.0) % Coagulation 06/07/18 Range/Units 12:37 INR 0.9 (<1.2) Result Diagrams: 06/07/18 12:37 06/07/18 12:37 Assessment and Plan Assessment: Displaced greater trochanter fracture of the left femur Plan: - MRI of the left hip ordered for further evaluation of the displaced greater trochanter fracture of the left femur. Treatment options moving forward will de pend on MRI findings. This was discussed with the patient the patient verbalized understanding and agreement. - Strict non-weight bearing of the left lower extremity. Ice and elevation of the left hip for swelling and pain control. - Continue current pain management. - Appreciate internal medicine consult for medical management. - NPO diet after midnight. - Patient discussed with Dr. Velazquez.
--- NOTE | 2018-06-07 19:53 | MR ---
EXAMINATION TYPE: MR hip LT wo con DATE OF EXAM: 06/07/2018 COMPARISON: CT left hip earlier today HISTORY: fracture, Left hip pain Standard multiplanar, multisequence MRI departmental protocol Multiplanar, multisequence images of the pelvis focusing on the left hip were acquired. FINDINGS: There is curvilinear low T1 signal consistent with acute comminuted displaced fracture invo lving the greater trochanter with small displaced fracture fragment superiorly redemonstrated coronal image 11 displaced roughly is 2.1 cm. There is incomplete fracture extension inferiorly along latera l aspect intertrochanteric region of left proximal femur coronal image 9 over roughly 3.6 cm in lengt h with surrounding osseous edema. Fracture line does not to definitively extend to anterior surface w hich it encroaches near as it extends inferiorly. It does not extend into the lesser trochanter. Ther e is significant T2 hyperintense signal consistent with edema and/or hemorrhage involving muscles att aching on the greater trochanter extending superiorly coronal image 9. No hip joint dislocation. No significant hip joint effusion. Pubic symphysis is intact. Remainder of pelvis shows no additional fracture. No concerning pelvic fluid collection is seen. No suspicious paula in hernia or adenopathy. IMPRESSION: Redemonstration of comminuted displaced fracture involving greater trochanter left hip wi th intertrochanteric extension inferiorly noted.
[2018-06-07] MEDS ORDERED: Potassium Replacement Protocol 1 EACH MISC MISCELLANE PRN (20:00)
--- NOTE | 2018-06-07 20:31 | P.CONS ---
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 Velazquez for left trochanteric fracture that he sustained after falling approximately 4 days ago up in [place] when he tripped in a pothole and fell on his buttocks, since then the patient has been unable to ambulate and bear weight on his left lower extremity and complains of a 7 out of 10 pain at present. Apparently had x-rays at [place] that revealed a stable-appearing displaced greater trochanteric fracture and he was instructed to follow-up with ortho, but apparently left AMA. Currently the patient has no other complaints other than left hip pain , he denies any chest pain shortness of breath. The patient denies any recent alcohol consumption and states that the last time he had a drink was approximately 4 months ago. Left hip CT indicates stable greater trochanteric fracture of the left femur. Remarkable labs serum sodium 136 serum potassium 2.9 AST alt 203/104 Review of Systems Pertinent positives per HPI all other review of systems otherwise negative Past Medical History Past Medical History: Cancer, Chest Pain / Angina, GERD/Reflux Additional Past Medical History / Comment(s): Colon cancer 2009 with surgery, colon polyps, pt denies ever having seizure-old medical record documents possible seizure with hypokalemia, pt states he was a heavy drinker in the past but now a weekend drinker, medical record dated 02/23/18 documents alcohol withdrawl syndrome/chronic encephalopathy/neurocognitive disorder/behavioral disturbance/hypokalemia and hypomagnesemia. History of Any Multi-Drug Resistant Organisms: None Reported Past Surgical History: Orthopedic Surgery Additional Past Surgical History / Comment(s): L leg ORIF with hardware, R arm fracture with hardware, colectomy d/t cancer, colonoscopies, 2013 cardiac cath-mild disease, larygoscopy with polypectomy, vasectomy. Past Anesthesia/Blood Transfusion Reactions: No Reported Reaction Smoking Status: Current every day smoker - Past Family History Father History Unknown: Yes Family Medical History: Coronary Artery Disease (CAD), Myocardial Infarction (MT) Additional Family Medical History / Comment(s): Father of a MT at the age og 52 yrs. Mother Additional Family Medical History / Comment(s): Mother was a smoker/drinker and at the age of 85yrs. Medications and Allergies Home Medications Medication Instructions Recorded Confirmed Type Magnesium Oxide 400 mg PO DAILY 06/07/18 06/07/18 History Potassium Chloride ER [K-Dur 20] 20 meq PO DAILY 06/07/18 06/07/18 History Thiamine [Vitamin B-1] 250 mg PO DAILY 06/07/18 06/07/18 History Allergies Allergy/AdvReac Type Severity Reaction Status Date / Time No Known Allergies Allergy Verified 06/07/18 09:18 Physical Exam Vitals: Vital Signs Temp Pulse Resp BP Pulse Ox 06/07/18 17:15 95 16 132/95 97 06/07/18 14:20 94 16 126/81 94 L 06/07/18 13:10 95 16 134/83 95 06/07/18 12:08 98.4 F 94 18 157/101 96 06/07/18 09:15 98.5 F 60 18 115/74 98 Intake and Output 06/07/18 06/07/18 06/07/18 06:59 14:59 22:59 Other: Weight 96.615 kg Constitutional: No acute distress, conversant, pleasant Eyes: Anicteric sclerae, moist conjunctiva, no lid-lag, PERRLA ENMT: NC/AT,Oropharynx clear, no erythema, exudates Neck:Supple, FROM, no masses, or JVD, No carotid bruits; No thyromegaly Lungs: Clear to auscultation, Clear to percussion, Normal respiratory effort, no accessory muscle use Cardiovascular: Heart regular in rate and rhythm, No murmurs, gallops, or rubs no peripheral edema Abdominal: Soft Nontender, nom distended, no guarding, no rebound or rigidity, Normoactive bowel sounds No hepatomegaly, No splenomegaly, No palpable mass No abdominal wall hernia noted Skin: Area of ecchymosis on left lateral hip, left elbow abrasion Extremities:No digital cyanosis No clubbing, Pedal pulses intact and symmetrical Radial pulses intact and symmetrical, No calf tenderness Psychiatric: Alert and oriented to person, place and time, Appropriate affect Intact judgement Neuro: Muscles Strength 5/5 in all 4 extremities, Sensation to light touch grossly present throughout, Cranial nerves II-XII grossly intact. No focal sensory deficits Results CBC & Chem 7: 06/07/18 12:37 06/07/18 12:37 Labs: Abnormal Lab Results - Last 24 Hours (Table) 06/07/18 06/07/18 06/07/18 Range/Units 12:37 12:37 13:20 RBC 3.78 L (4.30-5.90) m/uL Hgb 12.8 L (13.0-17.5) gm/dL Hct 36.2 L (39.0-53.0) % Plt Count 122 L (150-450) k/uL Sodium 136 L (137-145) mmol/L Potassium 2.9 L (3.5-5.1) mmol/L Chloride 94 L (98-107) mmol/L Carbon Dioxide 35 H (22-30) mmol/L Creatinine 0.57 L (0.66-1.25) mg/dL Glucose 100 H (74-99) mg/dL Total Bilirubin 1.4 H (0.2-1.3) mg/dL AST 203 H (17-59) U/L ALT 104 H (21-72) U/L Urine Protein Trace H (Negative) Assessment and Plan (1) Closed left hip fracture Current Visit: Yes Status: Acute Code(s): S72.002A - FRACTURE OF UNSP PART OF NECK OF LEFT FEMUR, INIT SNOMED Code(s): 310813360 (2) Hypokalemia Current Visit: No Status: Acute Code(s): E87.6 - HYPOKALEMIA SNOMED Code(s): 48884465 (3) Hypomagnesemia Current Visit: No Status: Acute Code(s): E83.42 - HYPOMAGNESEMIA SNOMED Code(s): 286798979 (4) Chronic alcoholism in remission Current Visit: Yes Status: Acute Code(s): F10.21 - ALCOHOL DEPENDENCE, IN REMISSION SNOMED Code(s): 463858152 (5) Transaminitis Current Visit: No Status: Acute Code(s): R74.0 - NONSPEC ELEV OF LEVELS OF TRANSAMNS & LACTIC ACID DEHYDRGNSE SNOMED Code(s): 777856742 (6) Thrombocytopenia Current Visit: Yes Status: Acute Code(s): D69.6 - THROMBOCYTOPENIA, UNSPECIFIED SNOMED Code(s): 798408434 Plan: The patient is admitted to primary orthopedic service with a commuted displaced closed left hip fracture involving the greater trochanter with intertrochanteric extension inferiorly, will defer all pain management to primary team. Subsequent MRI indicates a commuted displaced fracture The patient is hemodynamically stable, with no signs of alcohol withdrawal at this time. The patient was noted to be hypokalemic with a potassium of 2.9, we'll replace potassium initiate protocol and continue his daily per placement home regimen AND check magnesium and replace if needed. Noted chronic thrombocytopenia and transmaminitis likely related to alcohol dependence, continue to monitor and follow his clinical course Place the patient SCDs and initiate heparin for DVT prophylaxis Time with Patient: Greater than 30
[2018-06-07] MEDS ORDERED: MAGNESIUM OXIDE 400 MG TAB PO STA (21:53)
[2018-06-07] MEDS: HEPARIN SODIUM,PORCINE 5,000 UNIT/ML 1 ML VIAL SQ SCH (22:15)
[2018-06-08 07:59] LABS: Basophils % (A) 1 %; Eosinophils # (A) 0.1 k/uL (0-0.7); Eosinophils % (A) 2 %; HCT 36.4 % (39.0-53.0); HGB 12.6 gm/dL (13.0-17.5); Lymphocytes # (A) 1.4 k/uL (1.0-4.8); Lymphocytes % (A) 34 %; MCH 33.7 pg (25.0-35.0); MCHC 34.5 g/dL (31.0-37.0); MCV 97.8 fL (80.0-100.0); Mean Platelet Volume 7.8; Monocytes # (A) 0.3 k/uL (0-1.0); Monocytes % (A) 8 %; Neutrophils % (A) 51 %; Platelet Count 137 k/uL (150-450); RBC 3.72 m/uL (4.30-5.90); RDW 14.1 % (11.5-15.5)
[2018-06-08 08:12] LABS: ALT 105 U/L (21-72); AST 171 U/L (17-59); Albumin 3.4 g/dL (3.5-5.0); Alkaline Phosphatase 67 U/L (38-126); Anion Gap 4 mmol/L; Blood Urea Nitrogen 16 mg/dL (9-20); Calcium 8.3 mg/dL (8.4-10.2); Carbon Dioxide 36 mmol/L (22-30); Chloride 97 mmol/L (98-107); Glucose 102 mg/dL (74-99); Magnesium 1.3 mg/dL (1.6-2.3); Sodium 137 mmol/L (137-145); Total Bilirubin 1.2 mg/dL (0.2-1.3)
[2018-06-08] MEDS: THIAMINE 100 MG TAB PO SCH (08:32)
[2018-06-08] MEDS: POTASSIUM CHLORIDE ER 20 MEQ TAB.ER PO SCH (08:32)
[2018-06-08] MEDS: MAGNESIUM OXIDE 400 MG TAB PO SCH (08:32)
[2018-06-08] MEDS: HEPARIN SODIUM,PORCINE 5,000 UNIT/ML 1 ML VIAL SQ SCH ×2 (08:32→17:45)
[2018-06-08] MEDS ORDERED: POTASSIUM CHLORIDE ER 20 MEQ TAB.ER PO STA (09:40)
[2018-06-08] MEDS: MAGNESIUM SULFATE-D5W PMX 1 GM in DEXTROSE/WATER 1 100ML.BAG IVPB SCH ×3 (10:12→13:17)
[2018-06-08] MEDS: POTASSIUM CHLORIDE 10 MEQ in WATER FOR INJECTION 1 100ML.BAG IVPB SCH ×3 (10:12→13:15)
--- NOTE | 2018-06-08 11:25 | P.PN ---
Subjective Progress Note Date: 06/08/18 The patient was seen and examined at the bedside. He notes continued left hip pain, 4 out of 10, but otherwise denied additional complaints and was in good spirits. He denied chest pain, shortness of breath, nausea, vomiting, or abdominal pain. Objective - Vital Signs Vital signs: Vital Signs Temp 98.7 F 06/08/18 07:55 Pulse 79 06/08/18 07:55 Resp 18 06/08/18 07:55 BP 158/92 06/08/18 07:55 Pulse Ox 95 06/08/18 07:55 Intake & Output 06/07/18 06/08/18 06/08/18 18:59 06:59 18:59 Intake Total 600 Balance 600 Weight 96.615 kg Intake: Oral 600 Other: Voiding Method Urinal # Voids 1 - Exam General: Non-toxic, in no acute distress, appears stated age, normal weight HEENT: NC/AT, anicteric sclerae, moist conjunctiva, no lid-lag, PERRLA Cardiovascular: S1/S2 wnl, no murmurs, rubs, or gallops Lungs: Clear to auscultation, normal respiratory effort, no accessory muscle use Abdominal: Soft, non-tender, non-distended, no guarding, rebound, or rigidity Skin: Warm, dry Extremities: Left lateral hip ecchymosis Psychiatric: Alert and oriented to person, place and time, appropriate affect Neuro: CN II-XII grossly intact, Strength 5/5 in all extremities except LLE due to pain, Speech intact, Sensation to light touch grossly intact throughout - Labs CBC & Chem 7: 06/08/18 07:16 06/08/18 07:16 Labs: Abnormal Lab Results - Last 24 Hours (Table) 06/07/18 06/07/18 06/07/18 Range/Units 12:37 12:37 12:37 RBC 3.78 L (4.30-5.90) m/uL Hgb 12.8 L (13.0-17.5) gm/dL Hct 36.2 L (39.0-53.0) % Plt Count 122 L (150-450) k/uL Sodium 136 L (137-145) mmol/L Potassium 2.9 L (3.5-5.1) mmol/L Chloride 94 L (98-107) mmol/L Carbon Dioxide 35 H (22-30) mmol/L Creatinine 0.57 L (0.66-1.25) mg/dL Glucose 100 H (74-99) mg/dL Calcium (8.4-10.2) mg/dL Magnesium 1.3 L (1.6-2.3) mg/dL Total Bilirubin 1.4 H (0.2-1.3) mg/dL AST 203 H (17-59) U/L ALT 104 H (21-72) U/L Total Protein (6.3-8.2) g/dL Albumin (3.5-5.0) g/dL Urine Protein (Negative) 06/07/18 06/08/18 06/08/18 Range/Units 13:20 07:16 07:16 RBC 3.72 L (4.30-5.90) m/uL Hgb 12.6 L (13.0-17.5) gm/dL Hct 36.4 L (39.0-53.0) % Plt Count 137 L (150-450) k/uL Sodium (137-145) mmol/L Potassium 3.0 L (3.5-5.1) mmol/L Chloride 97 L (98-107) mmol/L Carbon Dioxide 36 H (22-30) mmol/L Creatinine 0.50 L (0.66-1.25) mg/dL Glucose 102 H (74-99) mg/dL Calcium 8.3 L (8.4-10.2) mg/dL Magnesium 1.3 L (1.6-2.3) mg/dL Total Bilirubin (0.2-1.3) mg/dL AST 171 H (17-59) U/L ALT 105 H (21-72) U/L Total Protein 6.0 L (6.3-8.2) g/dL Albumin 3.4 L (3.5-5.0) g/dL Urine Protein Trace H (Negative) Assessment and Plan Plan: Hypokalemia, Hypomagnasemia -Replaced, will monitor Closed L hip fracture -As per orthopedic service Acute pain due to fracture -Will defer to orthopedic service Chronic alcoholism w/ transaminitis -Improved -Monitor for now DVT proph -Heparin
--- NOTE | 2018-06-08 12:28 | P.PN ---
Progress Note - Text Progress Note Date: 06/08/18 I had a lengthy discussion with Mr. Clinton on his injury and different treatment options. The patient states that he fell last and was initially able to ambulate but over the last several days he had increasing pain to the point that he's been unable to ambulate. His x-rays and computed tomography scan showed a displaced greater trochanter fracture and the MRI showed a greater trochanter fracture with intertrochanteric extension of approximately 40%. We discussed absolute indication for operative stabilization is 50% extension. I offered both nonsurgical and surgical options and I think both are reasonable. Nonsurgical treatment would include 6-8 weeks of toe-touch weightbearing with a walker while surgical stabilization would allow immediate weightbearing as tolerated with a cane or walker. We also discussed the potential for displacement if the patient pursued nonsurgical treatment. After hearing both of his options the patient requested prophylactic stabilization to allow early full weightbearing. He understands the potential for complications. We will plan on surgery later this afternoon.
[2018-06-08 14:21] LABS: Magnesium 2.2 mg/dL (1.6-2.3); Potassium 4.3 mmol/L (3.5-5.1)
[2018-06-08] MEDS ORDERED: LACTATED RINGERS 1,000 ML IV ONE ×2 (14:45→17:16)
[2018-06-08] MEDS ORDERED: ceFAZolin IN SWFI 2 GM/20 ML SYRINGE IVP STA (14:56)
[2018-06-08] MEDS ORDERED: fentaNYL (PF) 50 MCG/ML 2 ML AMP ONE (15:25)
[2018-06-08] MEDS ORDERED: MIDAZOLAM 2 MG/2 ML VIAL ONE (15:25)
[2018-06-08] MEDS ORDERED: KETAMINE 10 MG/ML 20 ML VIAL ONE (15:25)
[2018-06-08] MEDS ORDERED: PROPOFOL 10 MG/ML 20 ML VIAL IV ONE (15:25)
[2018-06-08] MEDS ORDERED: LIDOCAINE 1% INJ 10MG/ML (20 ML MDV) ONE (15:25)
[2018-06-08] MEDS ORDERED: ceFAZolin 1,000 MG in SODIUM CHLORIDE 0.9% 1,000 ML IRRIGATION ONE (15:57)
[2018-06-08 16:00] VITALS: BMI 28.8
[2018-06-08] MEDS ORDERED: HYDROmorphone 0.5 MG/0.5 ML SYRINGE IVP PRN ×2 (16:37)
[2018-06-08] MEDS ORDERED: hydrOXYzine PAMOATE 25 MG CAP PO PRN (16:37)
--- NOTE | 2018-06-08 16:45 | P.OP ---
Date of Procedure: 06/08/18 Preoperative Diagnosis: 1. Left displaced greater trochanteric hip fracture with intertrochanteric extension Postoperative Diagnosis: Same Procedure(s) Performed: Operative stabilization of left intertrochanteric hip fracture with short intramedullary hip screw Implants: Synthes short TFN nail 11 mm diameter, 110 mm helical blade, and 44 mm distal interlocking screw Anesthesia: spinal Surgeon: Carlos Velazquez Brisket Puller #1: Eleuterio Al Estimated Blood Loss (ml): 25 IV fluids (ml): 500 Pathology: none sent Condition: stable Disposition: PACU Indications for Procedure: The patient is a very pleasant 73-year-old male who sustained a fall this past while walking in a parking lot and tripping in a hole. He had immediate pain in his left hip but was able to ambulate. Over the last several days he's had increasing hip pain to the point where he had difficulty ambulating. He presented to an outside emergency room where x-rays showed a displaced greater trochanter fracture. He left AGAINST MEDICAL ADVICE. He presented to our ER yesterday with increasing hip pain to the point that he couldn't walk. He was admitted under my care and an MRI was obtained which showed intertrochanteric extension of approximately 40%. He was cleared for surgery. I met with the patient earlier today to discuss treatment options including nonsurgical and surgical treatment. The patient requested operative stabilization to allow early full weightbearing as he said he would not be able to comply with weightbearing restrictions if he was managed nonoperatively. He also did not want to risk fracture displacement. We had a long discussion on the potential risks of surgery including but not limited to risk of anesthesia, superficial infection, deep infection, delayed wound healing, superficial wound necrosis, deep wound necrosis, fracture nonunion, fracture malunion, hardware failure, varus collapse, periprosthetic fracture, chronic pain, chronic swelling, and inability to regain preinjury level of function, DVT, PE, other medical complications and possibly loss of life or limb. The patient voiced his understanding of these complications and also acknowledges that other less co mmon complications are possible. He provided his verbal and written consent to go forward with surgery. Description of Procedure: The patient was identified in preoperative holding and the correct left leg was marked my initials. I reviewed the consent form with the patient and all of his questions were answered. The patient was then brought back to the operating room. Upon entering the operating room he was set up in the gurney and a spinal anesthetic was administered by anesthesia. He was then carefully transferred onto a fracture table. A perineal post was placed. The right leg was secured in a well leg villasenor with the hip flexed and externally rotated. The affected left leg was placed in a foot villasenor. The base the table was removed. A timeout was performed identifying the correct patient, operative extremity, and procedure. Minimal traction was applied due to the fracture being nondisplaced. Prior to prepping the patient fluoroscopy was brought in to verify that an AP and lateral image of the hip could be easily obtained. The left leg was then prepped and draped in the standard sterile fashion. I began by outlining a 3 cm incision just proximal to the greater trochanter in line with the femur. Skin incision was made through the skin, subcutaneous tissue and fascia. A guidepin was then placed just medial to the tip of the greater trochanter on an AP view and in line with the femur on the lateral view. The guidepin was driven to the level of the lesser trochanter. A cannulated opening reamer and soft tissue protector were used to gain access to the proximal canal. A 180 mm x 11 mm short Synthes TFN nail was dispensed and hooked up to the targeting arm. I verified that the slots on the targeting arm matched up with the slots in the nail for the helical blade and distal interlocking screw. The guidepin was removed from the proximal femur and the short nail was gently tapped into place. The trocar for the helical blade was inserted through the targeting arm down to the lateral aspect of the skin on the proximal femur. A stab incision was made through the skin and IT band down to the level of the lateral femur. The trocar was brought down to the lateral femur and a guidepin was placed in the low center position on the AP view and centered in the femoral head on the lateral view. The guidepin measured 110 mm. The reamer was set to 110 mm and a path was created for the helical blade. A 110 mm helical blade was dispensed and gently tapped into place. The set screw was brought all the way down proximally and then released half a turn to allow for compression. The trocar for the distal interlocking screw was then placed through the targeting arm and a stab incision was made over the skin and down through the IT band. The trocar was brought down to the lateral cortex of the femur a drill was used to create a path and a 44 mm distal interlocking screw was placed. Final fluoroscopic images were taken. All wounds were copiously irrigated and closed in layers. A sterile dressing consisting of Adaptic, 4 x 4's, and medium Tegaderms was applied area and the drapes were taken down, the patient was carefully removed from the fracture table, he was transferred to a gurbarbeau, and brought to recovery having tolerated the procedure well. Roz Al PA-C was required a skilled child nutrition assistant for patient positioning, surgical exposure, placement of hardware, closure of wounds, and application of dressing. Plan: The patient can weight-bear as tolerated on his left leg with the assistance of a cane or walker. He'll need 2 doses of postoperative antibiotics. Internal medicine for perioperative medical management. I generally use Lovenox 40 mg daily for 4 weeks for DVT prophylaxis. If internal medicine would rather manage I'm fine with them prescribing DVT prophylaxis. Discharge planning is pending.
[2018-06-08] MEDS: SODIUM CHLORIDE 0.9% 1,000 ML IV SCH (17:45)
[2018-06-08 18:13] LABS: Basophils % (A) 0 %; Eosinophils # (A) 0.1 k/uL (0-0.7); Eosinophils % (A) 2 %; HCT 36.7 % (39.0-53.0); HGB 12.1 gm/dL (13.0-17.5); Lymphocytes # (A) 1.6 k/uL (1.0-4.8); Lymphocytes % (A) 36 %; MCH 32.9 pg (25.0-35.0); MCV 99.7 fL (80.0-100.0); Macrocytosis Slight; Monocytes # (A) 0.3 k/uL (0-1.0); Monocytes % (A) 6 %; Neutrophils # (A) 2.5 k/uL (1.3-7.7); Neutrophils % (A) 54 %; Platelet Count 165 k/uL (150-450); RBC 3.68 m/uL (4.30-5.90); RDW 14.8 % (11.5-15.5); WBC 4.6 k/uL (3.8-10.6)
[2018-06-08] MEDS: HYDROcodone/APAP 5-325MG 1 EACH TAB PO PRN (19:53)
[2018-06-08] MEDS: ceFAZolin IN SWFI 2 GM/20 ML SYRINGE IVP SCH (23:09)
[2018-06-08] MEDS: HYDROmorphone 0.5 MG/0.5 ML SYRINGE IVP PRN (23:09)
[2018-06-09] MEDS: HEPARIN SODIUM,PORCINE 5,000 UNIT/ML 1 ML VIAL SQ SCH ×2 (00:45→08:44)
[2018-06-09] MEDS: SODIUM CHLORIDE 0.9% 1,000 ML IV SCH (05:53)
[2018-06-09] MEDS: HYDROmorphone 0.5 MG/0.5 ML SYRINGE IVP PRN (05:57)
[2018-06-09] MEDS: THIAMINE 100 MG TAB PO SCH (08:44)
[2018-06-09] MEDS: ceFAZolin IN SWFI 2 GM/20 ML SYRINGE IVP SCH (08:44)
[2018-06-09] MEDS: MAGNESIUM OXIDE 400 MG TAB PO SCH (08:45)
[2018-06-09] MEDS: POTASSIUM CHLORIDE ER 20 MEQ TAB.ER PO SCH (08:45)
--- NOTE | 2018-06-09 09:03 | FL ---
EXAMINATION TYPE: FL guidance operating room DATE OF EXAM: 06/08/2018 HISTORY: Flouroscopy time 59 seconds of fluoroscopy provided. IMPRESSION: 1. Fluoroscopy time.
--- NOTE | 2018-06-09 09:07 | XR ---
EXAMINATION TYPE: XR Hip Complete LT DATE OF EXAM: 06/08/2018 COMPARISON: 06/08/2018 HISTORY: Postop TECHNIQUE: 3 views submitted. FINDINGS: There is postsurgical change in near anatomic alignment. There is soft tissue edema and emphysema. IMPRESSION: 1. Postoperative change. Appears in near-anatomic alignment.
--- NOTE | 2018-06-09 09:27 | P.PN ---
Subjective Progress Note Date: 06/09/18 This patient is a 73-year-old male past medical history of bilateral ankle fractures that required operative fixation, a right wrist fracture that required operative fixation, a current every day smoker, and history of colon cancer that presented to the [facility] ED today for left hip pain. Patient states he fell 4 days ago, on 06/03/18 he was walking in the parking lot. He states he tripped on a hole in the parking lot, and fell onto his buttock. He experienced immediate pain in the left hip, although he continued shopping. He presented the next day to the [facility], where x-rays were taken and he was told that he sustained a hip fracture. Patient states he was instructed to follow-up in [place] for continued evaluation and treatment of his hip fracture, although chart review reveals the patient left AMA. Patient presented to [facility] ED today, x-rays were taken of the left hip and revealed a stable- appearing displaced greater trochanter fracture of the left femur. Computed tomography scan of the left hip was obtained which re-demonstrated the greater trochanteric fracture. Patient was admitted under the care of Dr. Velazquez, with a consult placed to internal medicine for medical management. Patient underwent operative stabilization of the left intertrochanteric hip fracture with a short intramedullary hip screw on 06/08/[address] Velazquez. Today is post-operative day #1. He states he is doing well this morning, he has mild hip pain. He states he is ready to go home today. He denies chest pain, shortness of breath, nausea, vomiting. He denies additional complaints today. Vital signs stable. Patient examined bedside with Dr. Velazquez. Objective - Vital Signs Vital signs: Vital Signs Temp 98.5 F 06/09/18 07:43 Pulse 87 06/09/18 07:43 Resp 18 06/09/18 07:43 BP 176/95 06/09/18 07:43 Pulse Ox 93 L 06/09/18 07:43 Intake & Output 06/08/18 06/09/18 06/09/18 18:59 06:59 18:59 Intake Total 1541 Output Total 830 600 Balance 711 -600 Weight 96.615 kg Intake: IV 1001 Oral 540 Output: Urine 800 600 Estimated Blood Loss 30 Other: Voiding Method Urinal # Voids 2 3 # Bowel Movements 1 - Exam On examination, the patient is laying in bed in no apparent distress. He is alert and orientated x3. On inspection of the left hip, there are surgical dressings intact. The dressings are clean, dry, intact. The mild ecchymosis of the left hip. The left lower extremity neurovascular is intact. Sensation is intact to light touch of the left lower extremity. Vital signs stable. - Labs CBC & Chem 7: 06/08/18 17:57 06/08/18 14:01 Labs: Abnormal Lab Results - Last 24 Hours (Table) 06/08/18 06/08/18 Range/Units 17:57 17:57 RBC 3.68 L (4.30-5.90) m/uL Hgb 12.1 L (13.0-17.5) gm/dL Hct 36.7 L (39.0-53.0) % Vitamin D 25-Hydroxy 13.8 L (30.0-100.0) ng/mL Assessment and Plan Assessment: Left displaced greater trochanteric hip fracture with intertrochanteric extension status-post short intramedullary hip screw on 06/08/18. Post-operative day #1. Plan: -Weight-bearing as tolerated on the left lower extremity with assistance of a walker. Ice and elevate the left lower extremity to decrease pain and swelling. - Physical therapy for gait and balance training. - Continue current pain management. - DVT prophylaxis is currently being managed by internal medicine, patient cu rrently on heparin. - 2 doses of postoperative antibiotics complete. - Appreciate medicine consult for medical management. - Per nursing, the patient's daughter called stating the patient is unsafe to go home. Although, the daughter does not want the patient to know she has called and told staff this. Therefore, we will discuss was social work for possible rehab placement. Patient discussed with Dr. Velazquez.
[2018-06-09 09:51] LABS: HCT 35.3 % (39.0-53.0); HGB 11.9 gm/dL (13.0-17.5); MCH 33.6 pg (25.0-35.0); MCHC 33.7 g/dL (31.0-37.0); MCV 99.8 fL (80.0-100.0); Macrocytosis Slight; Mean Platelet Volume 7.5; Platelet Count 182 k/uL (150-450); RBC 3.54 m/uL (4.30-5.90); RDW 14.1 % (11.5-15.5)
[2018-06-09 10:13] LABS: ALT 77 U/L (21-72); AST 95 U/L (17-59); Albumin 3.1 g/dL (3.5-5.0); Alkaline Phosphatase 58 U/L (38-126); Anion Gap 9 mmol/L; Blood Urea Nitrogen 10 mg/dL (9-20); Carbon Dioxide 28 mmol/L (22-30); Chloride 98 mmol/L (98-107); Glucose 173 mg/dL (74-99); Potassium 3.6 mmol/L (3.5-5.1); Sodium 135 mmol/L (137-145); Total Bilirubin 0.9 mg/dL (0.2-1.3); Total Protein 5.5 g/dL (6.3-8.2)
[2018-06-09] MEDS: HYDROcodone/APAP 5-325MG 1 EACH TAB PO PRN (15:13)
[2018-06-09 15:33] VITALS: BP 120/77; PULSE 96; RESP 16; TEMP 99.1
--- NOTE | 2018-06-09 15:35 | P.DS ---
Providers Date of admission: 06/07/18 13:18 Expected date of discharge: 06/09/18 Attending physician: Carlos Velazquez Consults: 06/07/18 12:46 Consult Physician Stat Consulting Provider: Marita Gibson Consult Reason/Comments: Medical management Do you want consulting provider notified?: Yes Primary care physician: Stated None Hospital Course: This is a 73-year-old male who is admitted to [facility] on 06/03/18 after falling and sustaining injury to the left hip. Patient was initially seen in the [place] ED for evaluation the following day, when he left AMA. The patient then presented to [facility] ED on 06/07/2018 due to increasing pain in the left hip with ambulation. On exam and x-ray in the emergency department he is found to have a displaced greater trochanteric fracture of the left femur. Computed tomography scan of the left hip was obtained which redemonstrated greater trochanteric fracture. Therefore, MRI was obtained to further evaluate the fracture, which revealed redemonstration of the comminuted displaced fracture involving the greater trochanter left hip with intertrochanteric extension inferiorly. He is admitted under the care of Dr. Velazquez, for surgical intervention and care. Patient is taken to surgery for operative stabilization of the left intertrochanteric hip fracture with a short intramedullary hip screw on 06/08/18. The procedure was performed without complication or sequelae. The patient is doing fairly well postoperatively. Vital signs and labs are stable on postoperative day #1. The patient was examined bedside this morning with Dr. Velazquez. The patient is doing well, he has no new complaints this morning. He is working with PT today, and has been up walking with the assistance of a walker with minimal issue. Vital signs stable. On examination, the patient is lying in bed in no acute distress. He is alert and oriented 3. On inspection of the left hip, there are and intact surgical dressings are clean, dry, intact. There is no drainage through the dressings. Left lower extremities warm and well-perfused, with brisk capillary refill distally. Neurovascular is intact of the left lower extremity. The left calf is soft and nontender to palpation. The patient daughter called, and waist or concerns to the nursing staff that he will be sent home alone. Social work spoke with the patient and daughter, and the patient is not willing to go to rehab. Internal medicine performed a Mini- Mental status exam, which the patient showed no cognitive impairment on exam. Patient passed the physical therapy evaluation, and physical therapy's recommendation is discharge home. Patient is discharged to home pending medical clearance in good condition. Please see [facility] rec for accurate list of discharge medications. Patient Condition at Discharge: Fair Plan - Discharge Summary Discharge Rx Participant: No New Discharge Prescriptions: New Docusate [Colace] 100 mg PO BID #60 capsule Enoxaparin [Lovenox] 40 mg SQ DAILY #28 syringe Hydrocodone/Acetaminophen [[place] 5-325] 1 tab PO Q6HR PRN #30 tab PRN Reason: Pain Ergocalciferol (Vitamin D2) [Vitamin D2] 50,000 unit PO Q72H #10 capsule Cholecalciferol (Vitamin D3) [Vitamin D3] 2,000 unit PO DAILY #30 capsule Calcium Carbonate [Tums] 500 mg PO TID #90 chewable No Action Magnesium Oxide 400 mg PO DAILY Potassium Chloride ER [K-Dur 20] 20 meq PO DAILY Thiamine [Vitamin B-1] 250 mg PO DAILY Discharge Medication List Magnesium Oxide 400 mg PO DAILY 06/07/18 [History] Potassium Chloride ER [K-Dur 20] 20 meq PO DAILY 06/07/18 [History] Thiamine [Vitamin B-1] 250 mg PO DAILY 06/07/18 [History] Calcium Carbonate [Tums] 500 mg PO TID #90 chewable 06/09/18 [Rx] Cholecalciferol (Vitamin D3) [Vitamin D3] 2,000 unit PO DAILY #30 capsule 06/09/18 [Rx] Docusate [Colace] 100 mg PO BID #60 capsule 06/09/18 [Rx] Enoxaparin [Lovenox] 40 mg SQ DAILY #28 syringe 06/09/18 [Rx] Ergocalciferol (Vitamin D2) [Vitamin D2] 50,000 unit PO Q72H #10 capsule 06/09/18 [Rx] Hydrocodone/Acetaminophen [[place] 5-325] 1 tab PO Q6HR PRN #30 tab 06/09/18 [Rx] Follow up Appointment(s)/Referral(s): [facility], [NON-STAFF] - As Needed None,Stated [Primary Care Provider] - 1-2 days Carlos Velazquez MD [Medical Doctor] - 2 Weeks Activity/Diet/Wound Care/Special Instructions: -He may weight-bear as tolerated on his operative leg with the assistance of a walker or cane. -Surgical dressings may be changed 48 hours after surgery. You may get incisions wet in the shower, pat dry with a clean towel. Do not soak the incisions. Cover incisions with a clean bandage or gauze. -Use a walker or cane for assistance with ambulation. -Elevate and ice left hip to help reduce swelling and control pain. -Take Colace as a stool softener. Take Lovenox for 4 weeks as prescribed for blood clot prevention. -Take vitamin D3 and D2, and calcium as prescribed. -Take pain medications as prescribed. Patient was instructed not to take this medication with alcohol. The patient verbalized understanding and agreement. -Follow-up appointment with Dr. Velazquez in the office in 2 weeks. -Call the office with any questions or concerns, Discharge Disposition: HOME WITH HOME HEALTH SERVICES
--- NOTE | 2018-06-09 15:48 | P.PN ---
Subjective Progress Note Date: 06/09/18 The patient was seen and examined at the bedside on 06/09/18. He underwent the operative repair of the L intertrochanteric hip fracture yesterday unremarkably. He notes that his pain is well controlled today. He otherwise denied fever, chills, nausea, vomiting, diarrhea, chest pain, or SOB. He had been ambulating today with physical therapy. Notes having normal bowel movement and passing urine. Notified by the case managers that the patient's daughter was concerned regarding patient's discharge to home. She notes that the patient might not have the capacity to make decisions and she wishes for him to be discharged to a rehab facility. The AAOx3 patient noted that he doesn't wish to go to rehab and prefers to be discharged home. Subsequently performed a mini mental status exam on which the patient scored a 29/30. Notified the case managers that in light of the patient displaying full capacity to make decisions, we will respect his wish to be discharged to home. Objective - Vital Signs Vital signs: Vital Signs Temp 99.1 F 06/09/18 14:14 Pulse 96 06/09/18 14:14 Resp 16 06/09/18 14:14 BP 120/77 06/09/18 14:14 Pulse Ox 97 06/09/18 14:14 Intake & Output 06/08/18 06/09/18 06/09/18 18:59 06:59 18:59 Intake Total 1541 540 Output Total 830 600 600 Balance 711 -600 -60 Weight 96.615 kg Intake: IV 1001 Oral 540 540 Output: Urine 800 600 600 Estimated Blood Loss 30 Other: Voiding Method Urinal Urinal # Voids 2 3 8 # Bowel Movements 1 1 - Exam General: Non-toxic, in no acute distress, appears stated age, overweight HEENT: NC/AT, anicteric sclerae, moist conjunctiva, no lid-lag, PERRLA Cardiovascular: S1/S2 wnl, no murmurs, rubs, or gallops Lungs: Clear to auscultation, normal respiratory effort, no accessory muscle use Abdominal: Soft, non-tender, non-distended, no guarding, rebound, or rigidity Skin: Warm, dry Extremities: Left lateral hip dressing in place, clean and dry Psychiatric: Alert and oriented to person, place and time, appropriate affect, pleasant Neuro: CN II-XII grossly intact, Strength 5/5 in all extremities except LLE due to pain, Speech intact, Sensation to light touch grossly intact throughout - Labs CBC & Chem 7: 06/09/18 08:54 06/09/18 08:54 Labs: Abnormal Lab Results - Last 24 Hours (Table) 06/08/18 06/08/18 06/09/18 Range/Units 17:57 17:57 08:54 RBC 3.68 L 3.54 L (4.30-5.90) m/uL Hgb 12.1 L 11.9 L (13.0-17.5) gm/dL Hct 36.7 L 35.3 L (39.0-53.0) % Sodium (137-145) mmol/L Creatinine (0.66-1.25) mg/dL Glucose (74-99) mg/dL Calcium (8.4-10.2) mg/dL AST (17-59) U/L ALT (21-72) U/L Total Protein (6.3-8.2) g/dL Albumin (3.5-5.0) g/dL Vitamin D 25-Hydroxy 13.8 L (30.0-100.0) ng/mL 06/09/18 Range/Units 08:54 RBC (4.30-5.90) m/uL Hgb (13.0-17.5) gm/dL Hct (39.0-53.0) % Sodium 135 L (137-145) mmol/L Creatinine 0.47 L (0.66-1.25) mg/dL Glucose 173 H (74-99) mg/dL Calcium 8.0 L (8.4-10.2) mg/dL AST 95 H (17-59) U/L ALT 77 H (21-72) U/L Total Protein 5.5 L (6.3-8.2) g/dL Albumin 3.1 L (3.5-5.0) g/dL Vitamin D 25-Hydroxy (30.0-100.0) ng/mL Assessment and Plan Plan: Hypokalemia, Hypomagnasemia -Resolved Closed L hip fracture s/p repair -Planned for discharge today by orthopedic service Acute pain due to fracture -Will defer to orthopedic service Chronic alcoholism w/ transaminitis -Improved -Advised patient on importance of cessation from alcohol use DVT proph -Heparin From a medical stand-point, the patient is presently stable for discharge to home with follow-up with his PCP.
== END 2018-06-09 17:05 | disposition home health service (06) | DRG 482 ==
LOC: EC 09:03 → 4SSUR 13:18
PROVIDERS: ADMIT Orthopaedic Surgery; ATTEND Orthopaedic Surgery
PROC: 0QS736Z Reposition Left Upper Femur with Intramedullary Internal Fixation Device, Percutaneous Approach (ICD-10-PCS; principal; 2018-06-08 08:45)
DX: S72.112A Displaced fracture of greater trochanter of left femur, initial encounter for closed fracture (principal); D69.6 Thrombocytopenia, unspecified; E83.42 Hypomagnesemia; F17.200 Nicotine dependence, unspecified, uncomplicated; K21.9 Gastro-esophageal reflux disease without esophagitis; E87.6 Hypokalemia; S50.312A Abrasion of left elbow, initial encounter; F10.21 Alcohol dependence, in remission; R74.0 Nonspecific elevation of levels of transaminase and lactic acid dehydrogenase [LDH]; W01.0XXA Fall on same level from slipping, tripping and stumbling without subsequent striking against object, initial encounter; Z71.3 Dietary counseling and surveillance; Z68.29 Body mass index [BMI] 29.0-29.9, adult; Z79.899 Other long term (current) drug therapy; Z85.038 Personal history of other malignant neoplasm of large intestine; Z87.81 Personal history of (healed) traumatic fracture; Z90.49 Acquired absence of other specified parts of digestive tract; Z82.49 Family history of ischemic heart disease and other diseases of the circulatory system
CPT/HCPCS: 36415; 73502; 80053; 81003; 82306; 83735; 84132; 85025; 85027; 85610; 85730; 96374; 99285

== ENCOUNTER 2018-08-09 14:08 | Inpatient (IN) | payer MEDICARE ==
[2018-08-09 15:56] LABS: Basophils # (A) 0.1 k/uL (0-0.2); Basophils % (A) 1 %; Eosinophils # (A) 0.1 k/uL (0-0.7); Eosinophils % (A) 2 %; HCT 41.1 % (39.0-53.0); HGB 13.6 gm/dL (13.0-17.5); Lymphocytes # (A) 1.7 k/uL (1.0-4.8); Lymphocytes % (A) 35 %; MCH 34.1 pg (25.0-35.0); MCV 103.4 fL (80.0-100.0); Macrocytosis Slight; Mean Platelet Volume 7.6; Monocytes # (A) 0.4 k/uL (0-1.0); Monocytes % (A) 7 %; Neutrophils # (A) 2.5 k/uL (1.3-7.7); Neutrophils % (A) 52 %; Platelet Count 262 k/uL (150-450); RBC 3.97 m/uL (4.30-5.90); WBC 4.8 k/uL (3.8-10.6)
[2018-08-09 16:07] LABS: ALT 125 U/L (21-72); AST 184 U/L (17-59); African American GFR (CKD) >90 (>60 ml/min/1.73 sqM); Albumin 3.7 g/dL (3.5-5.0); Alkaline Phosphatase 72 U/L (38-126); Anion Gap 11 mmol/L; Blood Urea Nitrogen 14 mg/dL (9-20); Calcium 8.1 mg/dL (8.4-10.2); Carbon Dioxide 26 mmol/L (22-30); Chloride 104 mmol/L (98-107); Glucose 81 mg/dL (74-99); Potassium 3.8 mmol/L (3.5-5.1); Sodium 141 mmol/L (137-145); Total Bilirubin 0.5 mg/dL (0.2-1.3); Total Protein 6.2 g/dL (6.3-8.2)
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
[2018-08-09 16:23] LABS: Alcohol 182 mg/dL
[2018-08-09] MEDS ORDERED: SODIUM CHLORIDE 0.9% 1,000 ML IV ONE ×2 (16:39→21:22)
[2018-08-09] MEDS ORDERED: SODIUM CHLORIDE 0.9% 500 ML 500 ML IV ONE (16:39)
--- NOTE | 2018-08-09 17:11 | XR ---
EXAMINATION TYPE: XR humerus bilateral DATE OF EXAM: 08/09/2018 COMPARISON: NONE HISTORY: Fall. Pain. TECHNIQUE: 4 views each humerus FINDINGS: There is small exostosis on the medial proximal left humeral metaphysis. I see no fracture nor dislocation. Elbow joints are intact. There is no sign of elbow joint effusion. Shoulder joints a re anatomic. IMPRESSION: No acute abnormality of the left and right humerus.
--- NOTE | 2018-08-09 17:13 | XR ---
EXAMINATION TYPE: XR wrist limited bilateral DATE OF EXAM: 08/09/2018 COMPARISON: NONE HISTORY: Fall. Pain TECHNIQUE: 2 views each wrist FINDINGS: There is a plate fixing the distal right radius. There is some deformity of the distal righ t radius and ulna consistent with old fractures. I see no acute fracture of the right wrist. There is a nondisplaced fracture of the waist of the left scaphoid bone. There is some lucency and th is is possibly not an acute fracture. IMPRESSION: Old right distal radius fracture with right wrist deformity. No acute fracture seen on th e right side. Left scaphoid fracture of uncertain age. This could be subacute fracture.
--- NOTE | 2018-08-09 17:14 | XR ---
EXAMINATION TYPE: XR forearm bilateral DATE OF EXAM: 08/09/2018 COMPARISON: NONE HISTORY: Fall. Pain. TECHNIQUE: 2 views each forearm FINDINGS: The elbow joints are intact. There is a plate with screws fixing an old fracture of the dis herminia right radius. Radiocarpal joints are intact. I see no acute fracture of the left and right forear m. IMPRESSION: No acute abnormality of the left and right forearm.
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
--- NOTE | 2018-08-09 17:17 | XR ---
EXAMINATION TYPE: XR chest 1V DATE OF EXAM: 08/09/2018 COMPARISON: NONE HISTORY: Fall. Pain TECHNIQUE: Single frontal view of the chest is obtained. FINDINGS: There is no heart failure nor confluent pneumonic infiltrate. Thoracic aorta is atheromato us. There is no pleural effusion. Bony thorax is intact. IMPRESSION: Atheromatous aorta. No active cardiopulmonary disease.
--- NOTE | 2018-08-09 17:18 | XR ---
EXAMINATION TYPE: XR pelvis AP view DATE OF EXAM: 08/09/2018 COMPARISON: 06/03/2018 HISTORY: Fall TECHNIQUE: Single view FINDINGS: Pelvic ring is intact. Proximal femurs and hip joints are intact. There is a left hip naili ng noted. There is calcification lateral to the left hip joint consistent with old chip fracture of t he greater trochanter. IMPRESSION: Old ununited chip fracture of the left side greater trochanter. No acute fracture seen.
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
--- NOTE | 2018-08-09 17:49 | CT ---
EXAMINATION TYPE: CT ChestAbdPelvis w con DATE OF EXAM: 08/09/2018 COMPARISON: CT chest 06/03/2018 HISTORY: Fall today Pain CT DLP: 825.5 mGycm Automated exposure control for dose reduction was used. CONTRAST: CT scan of the chest, abdomen and pelvis is performed without Oral Contrast and with IV Contrast, pat ient injected with 100 mL of Isovue 300. FINDINGS: There is mild subsegmental atelectasis in the posterior lung dorantes. There is no pleural effusion or pneumothorax. There is no mediastinal adenopathy. There is coronary artery calcification. Thoracic ao rta is atheromatous. There is mild aneurysm of the ascending aorta that measures up to 4.3 cm. There are no hilar masses. There is symmetric gynecomastia. There is some fatty infiltration of the liver. There is no focal liver defect. Gallbladder appears no rmal. Spleen appears normal. There is no evidence of pancreatic mass. There is no adrenal mass. The kidneys show satisfactory contrast opacification. There are multiple bi lateral nonobstructing renal calculi that measure up to 4 mm. There is no hydronephrosis. There is 3 cm cortical cyst lateral right kidney. There is no retroperitoneal adenopathy. Mid abdominal aorta me asures 2.7 cm. Bladder distends smoothly. There is prosthetic calcification. There is no inguinal hernia. There is n o free fluid in the pelvis. There is no ascites. There are surgical clips at the cecum. Appendix is n ot seen. There is no sign of a bowel obstruction. There is no sign of free air. There is old left johanna e hip nailing noted. The bony pelvis is intact. There is osteopenia. There is slight loss of height of numerous thoracic and lumbar vertebra. There i s 20% anterior wedging of L2 and 10% wedging of T12. There is 40% anterior wedging of T10 and T7. The re is slight anterior wedging of T5 and T4 and T3 up to 15-20%. The sternum is intact. The ribs appea r intact. There are multiple old bilateral healed rib fractures. IMPRESSION: Numerous thoracic and lumbar compression fractures. Thoracic compression fractures appear not significantly different than CT scan of 06/03/2018. I have no old lumbar CT scan to compare. Old rib fractures. Atherosclerotic vascular disease. No acute abnormality seen within the abdomen and pelvis. Mild thora cic aortic aneurysm unchanged.
[2018-08-09 17:57] LABS: Appearance,Urine Clear (Clear); Bilirubin,Urine Negative (Negative); Blood,Urine Negative (Negative); Color,Urine Yellow; Glucose,Urine (UA) Negative (Negative); Ketones,Urine Negative (Negative); Leukocyte Esterase,Urine Negative (Negative); Nitrite,Urine Negative (Negative); Protein,Urine Trace (Negative); Specific Gravity,Urine 1.026 (1.001-1.035); Urobilinogen,Urine <2.0 mg/dL (<2.0)
[2018-08-09] MEDS ORDERED: LORazepam 2 MG/ML INJ IV PRN (18:12)
[2018-08-09] MEDS ORDERED: THIAMINE 100 MG/ML 2 ML VIAL IM STA (18:12)
[2018-08-09] MEDS ORDERED: NALOXONE 0.4 MG/ML 1 ML VIAL IV PRN (18:12)
[2018-08-09] MEDS: THIAMINE 100 MG TAB PO SCH (18:26)
[2018-08-09] MEDS: LORazepam 2 MG/ML INJ IV PRN (18:29)
--- NOTE | 2018-08-09 21:22 | P.HPIM ---
History of Present Illness H&P Date: 08/09/18 The patient is a 73 yo M with a PMH of tobacco abuse presented to the ED for alcohol abuse, multiple falls, and suicidal thoughts. The patient notes that his suddenly 2 weeks ago from a heart-attack. He notes that since then he has been drinking heavily, up to a 1/5 of Vodka daily. He is living by himself though his daughter lives a few miles away and checks in on him daily. Patient notes that due to his drinking, he has been feeling while inebriated, with 3 falls this week. He states that the daughter found him to be somewhat lethargic earlier today and subsequently had 3 episodes of Grand-mal seizures, each one last 1 minute, in quick-succession. He was lethargic afterwards though his mentation gradually improved. EMS was activated and he came to the ED. The patient denied any history of seizures in the past. The patient also stated that he has been having some thoughts of suicide during this time, though has no particular plan. He however denied chest pain, SOB, nausea, or vomiting. Denied abdominal pain, diarrhea, headache, or visual disturbances. He underwent an extensive evaluation in the ED w/ Humerus, forearm, femur, and pelvic x-rays showing no acute fractures. Wrist x-ray revealed a possible L scaphoid subacute fracute. Head/C-Spine CT revealed cerebral atrophy with CT Chest/Abd/Pelvis showing thoracic and lumbar multiple compression fractures. CXR revealed no acute abnormalities. Laboratory evaluation revealed a troponin level of 0.012, lactic acid 2.9, alcohol level 182, WBC 4.8, Hgb 13.6, with Na 141 and K 3.8. He was subsequently admitted to the medicine service for further management of impending alcohol withdrawal and suicidal ideation. Review of Systems Pertinent positives and negatives as discussed in HPI, a complete review of systems was performed and all other systems are negative. Past Medical History Past Medical History: Cancer, Chest Pain / Angina, GERD/Reflux Additional Past Medical History / Comment(s): Colon cancer 2008 with surgery, colon polyps, pt denies ever having seizure-old medical record documents possible seizure with hypokalemia, pt states he was a heavy drinker in the past but now a weekend drinker, medical record dated 02/23/18 documents alcohol withdrawl syndrome/chronic encephalopathy/neurocognitive disorder/behavioral disturbance/hypokalemia and hypomagnesemia. History of Any Multi-Drug Resistant Organisms: None Reported Past Surgical History: Orthopedic Surgery Additional Past Surgical History / Comment(s): L leg ORIF with hardware, R arm fracture with hardware, colectomy d/t cancer, colonoscopies, 2013 cardiac cath- mild disease, larygoscopy with polypectomy, vasectomy. Past Anesthesia/Blood Transfusion Reactions: No Reported Reaction Past Psychological History: No Psychological Hx Reported Smoking Status: Current every day smoker Past Alcohol Use History: Daily, Heavy Past Drug Use History: None Reported - Past Family History Father History Unknown: Yes Family Medical History: Coronary Artery Disease (CAD), Myocardial Infarction ([place]) Additional Family Medical History / Comment(s): Father of a [place] at the age og 52 yrs. Mother Additional Family Medical History / Comment(s): Mother was a smoker/drinker and at the age of 85yrs. Medications and Allergies Home Medications Medication Instructions Recorded Confirmed Type Magnesium Oxide 400 mg PO DAILY 06/07/18 08/09/18 History Potassium Chloride ER [K-Dur 20] 20 meq PO DAILY 06/07/18 08/09/18 History ALPRAZolam [Xanax] 0.25 mg PO BID 08/09/18 08/09/18 History Cholecalciferol [Vitamin D3 (25 5,000 unit PO DAILY 08/09/18 08/09/18 History Mcg = 1000 Iu)] HYDROcodone/APAP 5-325MG [Freedom 1 tab PO DAILY PRN 08/09/18 08/09/18 History 5-325] Metoprolol Tartrate [Lopressor] 50 mg PO DAILY 08/09/18 08/09/18 History Allergies Allergy/AdvReac Type Severity Reaction Status Date / Time No Known Allergies Allergy Verified 08/09/18 16:01 Physical Exam Vitals: Vital Signs Temp Pulse Resp BP Pulse Ox 08/09/18 20:00 91 18 183/108 97 08/09/18 18:00 96 20 155/88 98 08/09/18 17:00 100 18 147/96 98 08/09/18 14:17 98.6 F 83 20 147/96 97 Intake and Output 08/09/18 08/09/18 08/09/18 06:59 14:59 22:59 Other: Weight 96.615 kg General: non toxic, no distress, appears at stated age, normal weight Derm: no unusual rashes/lesions, echymoses overlying [place] hands and forearms, warm, dry Head: atraumatic, normocephalic, symmetric Eyes: EOMI, no lid lag, anicteric sclera, pupils equal round reactive to light ENT: Nose and ears atraumatic, no thrush, no pharyngeal erythema Neck: No thyromegaly, no cervical lymphadenopathy, trachea midline, supple Mouth: no lip lesion, mucus membranes moist Cardiovascular: S1S2 reg, no murmur, positive posterior tibial pulse bilateral, no edema, capillary refill less than 2 seconds Lungs: CTA bilateral, no rhonchi, no rales , no accessory muscle use Abdominal: soft, nontender to palpation, no guarding, no appreciable organomegaly, normal bowel sounds Ext: no gross muscle atrophy, muscle strength 5 out of 5 in all 4 extremities grossly, no contractures, R wrist deformity, no tenderness, normal ROM Neuro: CN II-XI grossly intact, light touch intact all 4 extremities, finger to nose within normal limits, Psych: Alert, oriented to person, place, and time, tearful male Results CBC & Chem 7: 08/09/18 15:40 08/09/18 15:40 Labs: Abnormal Lab Results - Last 24 Hours (Table) 08/09/18 08/09/18 08/09/18 Range/Units 15:40 15:40 15:40 RBC 3.97 L (4.30-5.90) m/uL MCV 103.4 H (80.0-100.0) fL Creatinine 0.62 L (0.66-1.25) mg/dL Plasma Lactic Acid John 2.9 H* (0.7-2.0) mmol/L Calcium 8.1 L (8.4-10.2) mg/dL AST 184 H (17-59) U/L ALT 125 H (21-72) U/L Total Protein 6.2 L (6.3-8.2) g/dL Urine Protein (Negative) 08/09/18 08/09/18 Range/Units 17:30 18:46 RBC (4.30-5.90) m/uL MCV (80.0-100.0) fL Creatinine (0.66-1.25) mg/dL Plasma Lactic Acid John 2.9 H* (0.7-2.0) mmol/L Calcium (8.4-10.2) mg/dL AST (17-59) U/L ALT (21-72) U/L Total Protein (6.3-8.2) g/dL Urine Protein Trace H (Negative) Assessment and Plan Plan: Alcohol withdrawal w/ seizures -[facility] protocol -Thiamine, Folate, MV -Fall, aspiration, seizure precautions -Monitor electrolytes and replace accordingly -Advised patient on importance of cessation -C/w IVFs Lactic acidosis, secondary to seizures -C/w IVFs and monitor until resolution Suicidal ideation -Psychiatry consult Active tobacco abuse -Advised on importance of cessation -Nicotine patch DVT prophylaxis -Lovenox The patient is admitted with an anticipated greater than 2 midnight stay for evaluation of alcohol withdrawal seizures CODE STATUS: Full Code Discussed with: Patient Anticipated discharge date: 08/12/[address]: Home A total of 45 minutes was spent on the care of this complex patient more than 50% of the time was spent in counseling and care coordination.
[2018-08-09] MEDS: SODIUM CHLORIDE 0.9% 1,000 ML IV SCH (23:07)
[2018-08-10 04:28] LABS: ALT 102 U/L (21-72); AST 146 U/L (17-59); African American GFR (CKD) >90 (>60 ml/min/1.73 sqM); Albumin 3.3 g/dL (3.5-5.0); Alkaline Phosphatase 78 U/L (38-126); Anion Gap 5 mmol/L; Blood Urea Nitrogen 11 mg/dL (9-20); Calcium 7.7 mg/dL (8.4-10.2); Carbon Dioxide 28 mmol/L (22-30); Chloride 106 mmol/L (98-107); Glucose 93 mg/dL (74-99); Magnesium 1.2 mg/dL (1.6-2.3); Potassium 3.9 mmol/L (3.5-5.1); Sodium 139 mmol/L (137-145); Total Bilirubin 0.9 mg/dL (0.2-1.3); Total Protein 5.8 g/dL (6.3-8.2)
[2018-08-10 04:30] LABS: Basophils % (A) 0 %; Eosinophils # (A) 0.1 k/uL (0-0.7); Eosinophils % (A) 1 %; HCT 39.1 % (39.0-53.0); HGB 13.1 gm/dL (13.0-17.5); Lymphocytes # (A) 0.9 k/uL (1.0-4.8); Lymphocytes % (A) 21 %; MCH 34.8 pg (25.0-35.0); MCHC 33.6 g/dL (31.0-37.0); MCV 103.7 fL (80.0-100.0); Macrocytosis Slight; Mean Platelet Volume 6.8; Monocytes # (A) 0.3 k/uL (0-1.0); Monocytes % (A) 7 %; Neutrophils # (A) 3.1 k/uL (1.3-7.7); Neutrophils % (A) 70 %; Platelet Count 234 k/uL (150-450); RBC 3.77 m/uL (4.30-5.90); RDW 13.8 % (11.5-15.5); WBC 4.5 k/uL (3.8-10.6)
[2018-08-10] MEDS ORDERED: cloNIDine HCL 0.1 MG TAB PO STA (06:31)
[2018-08-10] MEDS: MULTIVITAMINS, THERA 1 EACH TAB PO SCH (07:48)
[2018-08-10] MEDS: ENOXAPARIN 40 MG/0.4 ML SYRINGE SQ SCH (07:49)
[2018-08-10] MEDS: MAGNESIUM OXIDE 400 MG TAB PO SCH (07:49)
[2018-08-10] MEDS: THIAMINE 100 MG TAB PO SCH ×2 (07:49→17:35)
[2018-08-10] MEDS: POTASSIUM CHLORIDE ER 20 MEQ TAB.ER PO SCH (07:49)
[2018-08-10] MEDS: SODIUM CHLORIDE 0.9% 1,000 ML IV SCH ×2 (07:58→17:35)
[2018-08-10] MEDS ORDERED: ALPRAZolam 0.25 MG TAB PO SCH (09:00)
[2018-08-10] MEDS: METOPROLOL TARTRATE 50 MG TAB PO SCH (09:41)
--- NOTE | 2018-08-10 10:14 | P.PN ---
Subjective Progress Note Date: 08/10/18 Patient seen and examined at bedside 1 sitter present, denies any suicidal ideation. Reports that he's been going through a tough time since his passed suddenly from a heart attack less than a month ago. Reports that he is been using alcohol which is not helping his situation, reports he has thinks to live for including his grandkids and reports that his daughter will be moving in with him. The reports that his daughter saw his eyes rolled back in his head but is unable to recall the reported seizure episode. No acute events overnight. Plasma lactic acid elevated secondary to alcoholism, His serum magnesium 1.2 this morning, ast/alt 146/102. Review of records indicates previously noted for acute encephalopathy due to alcoholism. Blood pressure also elevated early this morning we'll restart his home metoprolol dose Objective - Vital Signs Vital signs: Vital Signs Temp 98.7 F 08/10/18 07:51 Pulse 79 08/10/18 07:51 Resp 16 08/10/18 07:51 BP 161/89 08/10/18 07:51 Pulse Ox 99 08/10/18 06:30 Intake & Output 08/09/18 08/10/18 08/10/18 18:59 06:59 18:59 Intake Total 200 Balance 200 Weight 96.615 kg Intake: Oral 200 - Exam Constitutional: No acute distress, conversant, pleasant Eyes: Anicteric sclerae, moist conjunctiva, no lid-lag, PERRLA ENMT: NC/AT,Oropharynx clear, no erythema, exudates Neck:Supple, FROM, no masses, or JVD, No carotid bruits; No thyromegaly Lungs: Clear to auscultation, Clear to percussion, Normal respiratory effort, no accessory muscle use Cardiovascular: Heart regular in rate and rhythm, No murmurs, gallops, or rubs no peripheral edema Abdominal: Soft Nontender, nom distended, no guarding, no rebound or rigidity, Normoactive bowel sounds No hepatomegaly, No splenomegaly, No palpable mass No abdominal wall hernia noted Skin: Normal temperature, tone, texture, turgor, No induration No subcutaneous nodules, No rash, lesions, No ulcers Extremities:No digital cyanosis No clubbing, Pedal pulses intact and symmetrical Radial pulses intact and symmetrical Normal gait and station, No calf tenderness Psychiatric: Flat affect, no current suicidal ideation, denies any auditory or visual hallucinations Neuro: Muscles Strength 5/5 in all 4 extremities, Sensation to light touch gr ossly present throughout, Cranial nerves II-XII grossly intact. No focal sensory deficits - Labs CBC & Chem 7: 08/10/18 03:41 08/10/18 03:41 Labs: Abnormal Lab Results - Last 24 Hours (Table) 08/09/18 08/09/18 08/09/18 Range/Units 15:40 15:40 15:40 RBC 3.97 L (4.30-5.90) m/uL MCV 103.4 H (80.0-100.0) fL Lymphocytes # (1.0-4.8) k/uL Creatinine 0.62 L (0.66-1.25) mg/dL Plasma Lactic Acid John 2.9 H* (0.7-2.0) mmol/L Calcium 8.1 L (8.4-10.2) mg/dL Magnesium (1.6-2.3) mg/dL AST 184 H (17-59) U/L ALT 125 H (21-72) U/L Total Protein 6.2 L (6.3-8.2) g/dL Albumin (3.5-5.0) g/dL Urine Protein (Negative) 08/09/18 08/09/18 08/10/18 Range/Units 17:30 18:46 03:41 RBC 3.77 L (4.30-5.90) m/uL MCV 103.7 H (80.0-100.0) fL Lymphocytes # 0.9 L (1.0-4.8) k/uL Creatinine (0.66-1.25) mg/dL Plasma Lactic Acid John 2.9 H* (0.7-2.0) mmol/L Calcium (8.4-10.2) mg/dL Magnesium (1.6-2.3) mg/dL AST (17-59) U/L ALT (21-72) U/L Total Protein (6.3-8.2) g/dL Albumin (3.5-5.0) g/dL Urine Protein Trace H (Negative) 08/10/18 Range/Units 03:41 RBC (4.30-5.90) m/uL MCV (80.0-100.0) fL Lymphocytes # (1.0-4.8) k/uL Creatinine 0.57 L (0.66-1.25) mg/dL Plasma Lactic Acid John (0.7-2.0) mmol/L Calcium 7.7 L (8.4-10.2) mg/dL Magnesium 1.2 L (1.6-2.3) mg/dL AST 146 H (17-59) U/L ALT 102 H (21-72) U/L Total Protein 5.8 L (6.3-8.2) g/dL Albumin 3.3 L (3.5-5.0) g/dL Urine Protein (Negative) Assessment and Plan (1) Chronic alcohol dependence, continuous Narrative/Plan: * Continue symptom triggered CIWA with withdrawal protocol with Ativan as needed * Previously has been on Librium in previous hospitalization which was discontinued secondary to worsening transaminitis Current Visit: Yes Status: Acute Code(s): F10.20 - ALCOHOL DEPENDENCE, UNCOMPLICATED SNOMED Code(s): 887957006 (2) Alcoholic hepatitis Narrative/Plan: * Ongoing alcoholism * Transaminitis secondary to alcoholic hepatitis and fatty liver previously seen on ultrasound and also on CAT scan * Order records indicates patient has not had hep panel will order one today Current Visit: Yes Status: Acute Code(s): K70.10 - ALCOHOLIC HEPATITIS WITHOUT ASCITES SNOMED Code(s): 290088872 (3) Hypomagnesemia Narrative/Plan: * Replace and recheck Current Visit: No Status: Acute Code(s): E83.42 - HYPOMAGNESEMIA SNOMED Code(s): 607470170 (4) Perceptual disturbances and seizures concurrent with and due to alcohol withdrawal Narrative/Plan: * Consulted neurology for further recommendations * Likely related to alcohol withdrawal and electrolyte abnormalities being profound hypomagnesemia 1.2 Current Visit: Yes Status: Acute Code(s): F10.232 - ALCOHOL DEPENDENCE W WITHDRAWAL WITH PERCEPTUAL DISTURBANCE; R56.9 - UNSPECIFIED CONVULSIONS SNOMED Code(s): 287169097 (5) Depression Narrative/Plan: * Awaiting psychiatry consultation and further recommendations * Recent adjustment disorder after his this past worsening his alcoholism and depression * Currently not suicidal discontinue one-to-one sitter Current Visit: Yes Status: Acute Code(s): F32.9 - MAJOR DEPRESSIVE DISORDER, SINGLE EPISODE, UNSPECIFIED SNOMED Code(s): 67109729 (6) Suicidal ideation Current Visit: Yes Status: Acute Code(s): R45.851 - SUICIDAL IDEATIONS SNOMED Code(s): 6397761 (7) Accelerated hypertension Current Visit: Yes Status: Acute Code(s): I10 - ESSENTIAL (PRIMARY) HYPERTEN CASSIUS SNOMED Code(s): 73389330 Plan: Anticipated discharge 1-2 days * We'll follow consultants recommendation and replace his electrolytes * Continue with seizure precautions
[2018-08-10] MEDS: MAGNESIUM SULFATE-D5W PMX 1 GM in DEXTROSE/WATER 1 100ML.BAG IVPB SCH ×4 (11:38→16:25)
[2018-08-10] MEDS: LORazepam 2 MG/ML INJ IV PRN ×2 (14:26→17:12)
--- NOTE | 2018-08-10 14:54 | EEG ---
ELECTROENCEPHALOGRAM REPORT DATE OF SERVICE: 08/10/2018 PREAMBLE: Alcohol withdrawal and episodes of gran mal seizures, each one lasting 1 minute. EEG is requested to rule out epileptiform activity. MEDICATIONS: Thiamine, potassium, metoprolol, magnesium oxide, lorazepam, acetaminophen, Xanax. The patient has been getting benzodiazepines for his alcohol withdrawal related symptoms. FINDINGS: The background of this tracing with a reactive alpha rhythm that attenuates on eye opening and returns upon eye closure. There are scattered EMG artifacts that correspond to patient's talking and body movements. Photic stimulation elicits a symmetric driving response. Hyperventilation is not performed in this recording. As the tracing progresses, there is some slowing down of the background into the theta and occasionally delta range. Definitive sleep architecture is not seen. Towards the latter part of the recording, there is spontaneous self-arousal followed by reappearance of a symmetric algorithm in the background. There is no background asymmetry, ictal or interictal patterns seen in this recording. IMPRESSION: This is a normal awake/drowsy electroencephalogram without background asymmetry or epileptiform patterns. Clinical correlation is advised. GORDO / MARIA G: [id number] / [facility]ITAL[facility]
--- NOTE | 2018-08-10 15:51 | P.CNNES ---
History of Present Illness Consult date: 08/10/18 Requesting physician: Jeremias Posey Reason for Consult: Alcohol withdrawal seizure Chief complaint: Seizure x3 History of Present Illness: This is a 73 LH male h/o tobacco and alcohol abuse who has been undergoing significant emotional stress due to recent passing of his . He was drinking heavily up to 1/5th of vodka daily. He had 3 falls this week due to inebriation. His daughter on day of admission found him lethargic then subsequently had 3 GTC seizures in quick succession, each lasting around a minute. There was no report of tongue biting or bowel/bladder incontinence. No report of specific head/eye deviation. There was +post-ictal phase. Patient denies h/o seizures. He received a trauma work-up including CTH that was unrevealing for ICH or other acute intracranial process. Labs were significant for BAL 182 and lactic acid 2.9. He expressed SI but no HI. He was placed on CIWA protocol and admitted to the hospital. No report of further clinical seizure activity since admission. Review of Systems I have performed a 14-point organ ROS with patient that are negative except as per HPI. Past Medical History Past Medical History: Cancer, Chest Pain / Angina, GERD/Reflux Additional Past Medical History / Comment(s): Colon cancer 2008 with surgery, colon polyps, pt denies ever having seizure-old medical record documents possible seizure with hypokalemia, pt states he was a heavy drinker in the past but now a weekend drinker, medical record dated 02/23/18 documents alcohol withdrawl syndrome/chronic encephalopathy/neurocognitive disorder/behavioral disturbance/hypokalemia and hypomagnesemia. History of Any Multi-Drug Resistant Organisms: None Reported Past Surgical History: Orthopedic Surgery Additional Past Surgical History / Comment(s): L leg ORIF with hardware, R arm fracture with hardware, colectomy d/t cancer, colonoscopies, 2013 cardiac cath- mild disease, larygoscopy with polypectomy, vasectomy. Past Anesthesia/Blood Transfusion Reactions: No Reported Reaction Past Psychological History: No Psychological Hx Reported Additional Psychological History / Comment(s): Pt states his spouse 4 weeks ago and that he is depressed but not suicidal. He now lives alone and has a dog. His ruperto and grandchild live 4 miles away. He does not drive, his spouse was the transport driver but he believes he will be able to arrange rides. He has a cane which he uses prn. Smoking Status: Current every day smoker Past Alcohol Use History: Daily, Heavy Additional Past Alcohol Use History / Comment(s): Pt states in the past he was a heavy drinker but states that for the past 4 years he only drinks on the weekend and may occasionally go over 14 drinks over the weekend. He states he last drank 6 weeks ago. Past Drug Use History: None Reported - Past Family History Father History Unknown: Yes Family Medical History: Coronary Artery Disease (CAD), Myocardial Infarction ([place]) Additional Family Medical History / Comment(s): Father of a [place] at the age og 52 yrs. Mother Additional Family Medical History / Comment(s): Mother was a smoker/drinker and at the age of 85yrs. Medications and Allergies Home Medications Medication Instructions Recorded Confirmed Type Magnesium Oxide 400 mg PO DAILY 06/07/18 08/09/18 History Potassium Chloride ER [K-Dur 20] 20 meq PO DAILY 06/07/18 08/09/18 History ALPRAZolam [Xanax] 0.25 mg PO BID 08/09/18 08/09/18 History Cholecalciferol [Vitamin D3 (25 5,000 unit PO DAILY 08/09/18 08/09/18 History Mcg = 1000 Iu)] HYDROcodone/APAP 5-325MG [Lee 1 tab PO DAILY PRN 08/09/18 08/09/18 History 5-325] Metoprolol Tartrate [Lopressor] 50 mg PO DAILY 08/09/18 08/09/18 History Allergies Allergy/AdvReac Type Severity Reaction Status Date / Time No Known Allergies Allergy Verified 08/09/18 16:01 Physical Examination - Vital Signs Vital Signs: Vital Signs Temp Pulse Pulse Resp BP BP Pulse Ox 08/10/18 15:00 98.2 F 67 20 170/87 96 08/10/18 07:51 98.7 F 79 16 161/89 08/10/18 06:58 187/109 08/10/18 06:30 98.4 F 85 18 194/128 99 08/10/18 03:50 97.9 F 93 16 180/99 98 08/10/18 01:09 92 19 08/09/18 23:29 97.9 F 99 16 177/100 99 08/09/18 23:00 101 H 18 170/98 97 08/09/18 22:00 98 18 172/97 96 08/09/18 21:00 100 18 165/67 95 08/09/18 20:00 91 18 183/108 97 08/09/18 18:00 96 20 155/88 98 08/09/18 17:00 100 18 147/96 98 Intake and Output 08/10/18 08/10/18 08/10/18 06:59 14:59 22:59 Intake Total 200 Balance 200 Intake: Oral 200 Other: # Voids 2 Gen NAD Pleasant and cooperative HEENT NCAT Sclera without icterus O/P clear Neck Supple No carotid bruit Cor RRR no m/r/g Lungs CTAB Abd Soft NTND +BS Ext Warm to touch No edema Neuro MS A+Ox4 Normal fluency Able to follow all commands CN PERRL VFF no APD EOMI no nystagmus or ADAMARIS No facial asymmetry Masseter's symmetric Hearing intact to normal voice bilaterally Speech not dysarthric Equal elevation of palate Tongue midline Sym shrug and SCM bilaterally Motor Normal bulk/tone No pronator drift or tremors Strength 5/5 sym throughout Sens Intact to LT x4 No neglect or extinction Coord No dysmetria on FTN bilaterally DTRs 2+/4 sym throughout Toes downgoing bilaterally No clonus at achilles Gait Deferred Results - Laboratory Findings CBC and BMP: 08/10/18 03:41 08/10/18 03:41 Abnormal Lab Findings: Abnormal Labs 08/09/18 08/09/18 08/09/18 15:40 15:40 15:40 RBC 3.97 L MCV 103.4 H Lymphocytes # Creatinine 0.62 L Plasma Lactic Acid John 2.9 H* Calcium 8.1 L Magnesium AST 184 H ALT 125 H Total Protein 6.2 L Albumin Urine Protein 08/09/18 08/09/18 08/10/18 17:30 18:46 03:41 RBC 3.77 L MCV 103.7 H Lymphocytes # 0.9 L Creatinine Plasma Lactic Acid John 2.9 H* Calcium Magnesium AST ALT Total Protein Albumin Urine Protein Trace H 08/10/18 03:41 RBC MCV Lymphocytes # Creatinine 0.57 L Plasma Lactic Acid John Calcium 7.7 L Magnesium 1.2 L AST 146 H ALT 102 H Total Protein 5.8 L Albumin 3.3 L Urine Protein - Diagnostic Findings Additional findings: CT Head wo cont 08/09/18. Cerebral atrophy. No ICH. Nil acute. EEG 08/10/18. No EPD. I have reviewed neuroimages myself. Assessment and Plan Assessment: Generalized tonic-clonic seizures, new-onset, likely due to alcohol withdrawal. Plan: -[facility] protocol. -Will not load AED at this time given he has not had recurrent seizures -Thiamine 100mg po qd x3 -CT Head and EEG reviewed -Seizure precautions -Alcohol cessation counseling held -Correct all metabolic derangements -He should not drive for 6 months from his last clinical seizure in accordance with the state law of [place]. Same common sense applies to engaging in any activity that may endanger patient and/or others should he have recurrent seizure activity. -d/w patient and primary team. All questions answered. Thank you for this consultation. Please call with ?. Time with Patient: Greater than 30 (Time spent in direct patient care, greater than 50% of which was spent in ottb-io-ioar counseling and coordination of care: 70 minutes.)
--- NOTE | 2018-08-10 16:43 | P.CN ---
Psychiatric Consult - . Consult date: 08/10/18 Consult:: 08/10/18 16:21 Identification: Patient is a 73-year-old male who was brought to the emergency room after having frequent falls at home, seizures on the day of admission and had been using alcohol Reason for Consult: Suicidal ideation History of Present Illness: Patient's chart was reviewed, he was seen and interviewed in his room alone. Patient is a fair historian, he told me that his recently but could not tell me the exact date and stated that his mother 6 months ago. Patient states that he's been drinking a pint to a fifth of liquor daily for the last year. He states that he is drinking alcohol to try to find an answer to why he is paying for his daughter's house his grandson's car his grandson's trailer and where all his money is going. Patient states that he did have a seizure last week he stated that it lasted for 5 seconds and he had no loss of control of bowel or bladder. Patient states that he lives alone in his own home and is taking care of his own cleaning and cooking. Patient states that he hasn't been feeling suicidal he is sad about the of his but states that suicide would be against his quaker. Patient reports that he has never been treated for depression, states he is not on no psychotropic medications and has never been admitted for inpatient treatment. Patient states that he's been sleeping well at night at home. Patient states that he fell at home recently and had to have surgery because of a fracture of his left femur. Patient states later that he needs to get a handle on life and then referred to money problems due to his daughter and grandson and he is paying all the bills for everybody. Patient stated that he's only been drinking for the last year and prior to that had not been drinking. Patient's daughter stated to me that her father had a fall down stairs 10 years ago and had not been using alcohol at that time after the head injury he had to retire from work due to irritability and unknown cognitive difficulties. He began using alcohol at that time and has been drinking consistently for the last 10 years. She states that when he was drinking he would become belligerent, his irritability increased and her mother quit working to be at home with him. She states that while her mother was alive she could somewhat control the amount of alcohol that he was using. She states that since her mother's about a month ago he has been sleeping in the pole bar, has fallen 4 times in the last 4 days, has place to money in the pole bar, has been giving money to teenagers to go by him alcohol. She has contacted Adult Protective Services regarding her concerns. She states that she provides dinner for him daily and comes over and cleans the house. She reports that her mother had been in the process of applying for guardianship prior to her . Patient had been spending money inappropriately and apparently her mother had placed some money in a trust. Past Psychiatric History: Patient has no prior psychiatric treatment on inpatient or outpatient basis he has never gone for inpatient alcohol treatment. Past Medical/Surgical History: Patient has a history of colon cancer status post surgery, GERD a right arm fracture due to fall a left hip surgery due to a fall in June of this year and a head injury 10 years ago due to a fall down stairs. Family History: Patient states that there is no psych history or alcohol or drug use history in the family and no completed suicides Social History: Patient was born in [place] and raised in [place] both of his parents are and he has no brothers or sisters. He completed high school and went on to college and obtained multiple masters degree. 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 He was unable to tell me how long he worked or what year he retired. According to his daughter he worked up until the time of his head injury 10 years ago. He's been twice the first time ended in divorce with no children his second marriage was for 30 years and he has one daughter. Patient currently lives alone in his own home he does not drive. He never served in the and denies any abuse history. Substance Use History: Patient states that he has used alcohol since the age of 27 and reports drinking a pint to a fifth a day for the last year. Per his daughter his alcohol use started 10 years ago after the head injury. He denies any drug use currently or in the past. 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 have a tour driver's license Mental status: Appearance/Attitude: patient is dressed in a hospital gown, makes eye contact and was cooperative Behavior: patient does not exhibit any psychomotor agitation or retardation, he became irritable when he asked me if he could leave the hospital now Speech/Language: patient's speech is spontaneous of normal volume and rhythm and he is coherent Thought Process: patient is goal-directed but had difficulty with giving me details, dates and specific information Thought Content:patient denies any auditory or visual hallucinations no delusions or paranoid ideation were elicited. Patient complained about his family, how he is supporting everyone in pain all of the bills. Patient states that his recently but he can't tell me the exact date, he states that he's felt depressed since that time and has been trying to get a handle on life. He states he's been drinking a pint to a fifth a day and trying to find an answer. Patient states that he's been sleeping at home and eating. Suicidal/Homicidal Ideation: patient denies any current suicidal or homicidal ideation stating that suicide is against his quaker Sensorium/Cognition: patient is alert and stated the date was 08/11/2018, he knew his location and he was in the hospital. Patient had difficulty telling me exactly when his , but his mother 6 months ago she 9.5 years ago and was unable to provide details about his past work history. Mood/Affect: patient's mood was initially pleasant and became irritable when his daughter was present but also when I told him that I was not the one who would be releasing him from the hospital Insight/Judgment: patient's insight and judgment are currently impaired Assessment: patient was brought to the hospital after numerous frequent falls, seizures at home and using alcohol up to a fifth a day. Patient is a fair historian but unable to give me an accurate history about his prior work history, unable to give me dates. Patient's daughter states that he has been drinking heavily, since he had a head injury 10 years ago using up to a pint a day most recently up to a fifth a day. Patient's daughter states that she is cooking for him, has found him on the floor in his home, he has been sleeping in his pole barn, hiding antunez in the pole barn. She states he becomes quite belligerent about money feeling that people are stealing it from him and that's why he has been hiding it in the pole barn but he is also been giving money to people to buy liquor for him as well as over paying people in antunez when he performs services for him. Patient was here in February and at that time it was recommended that his seek guardianship, she was in the process of doing this and he was awaiting an MRI when she a month ago. His daughter reports that she has spoken with an mdm sr about applying for guardianship, contacted adult protective services because she does not feel her father is safe at home.patient received IV Ativan at 226 this afternoon about an hour before I saw him he was not an accurate historian is unclear to me if this was due to his Ativan, his alcohol withdrawal or underlying cognitive issues. Patient has a history of a head injury 10 years ago that per the daughter changed his personality, he was more irritable and caused him to retire from his position, she states that she is unsure about what the cognitive difficulties were at that time. Patient's alcohol use began after this head injury and have recently increased over the last year. Diagnosis: Alcohol use disorder, severe; alcohol withdrawal; rule out neurocognitive disorder Plan: patient does not require a sitter for suicide precautions but I would recommend a pilot safety inspector due to his numerous falls recently, his wish to leave the hospital. Patient declined any rehab services for alcohol use disorder at this time stating that he doesn't need that he just needs to return home. Would recommend changing the Ativan to by mouth if it is felt that this can control his alcohol withdrawal symptoms. In reviewing his prescriptions the patient has not filled a prescription for Xanax since 2018 and I discontinued the Xanax as this was not a patient's home prescription. Patient received a very small martinez pply of [place] after his hip surgery in June. He has no record of any other controlled substance prescriptions. At this time I will not begin any antidepressants, he is denying any suicidal ideation and so does not need to be on suicide precautions. I will continue to follow the patient and assess his progress, patient will most likely require a guardian as he is refusing any inpatient or outpatient alcohol rehab, has continued to use alcohol which has caused him to fall several times at home and have seizures, is not able to provide for his activities of daily living. Social work consult has already been placed will discuss with social work discharge recommendations as the patient clears from his alcohol withdrawal and is no longer receiving Ativan. 08/10/18 16:22
[2018-08-10 17:16] LABS: Hepatitis A Antibody IgM Non-Reactive (Non-Reactive); Hepatitis B Core IgM Reactive (Non-Reactive)
[2018-08-11] MEDS: SODIUM CHLORIDE 0.9% 1,000 ML IV SCH ×3 (02:37→23:05)
[2018-08-11] MEDS: ENOXAPARIN 40 MG/0.4 ML SYRINGE SQ SCH (08:07)
[2018-08-11] MEDS: POTASSIUM CHLORIDE ER 20 MEQ TAB.ER PO SCH (08:07)
[2018-08-11] MEDS: METOPROLOL TARTRATE 50 MG TAB PO SCH ×2 (08:07→20:31)
[2018-08-11] MEDS: MAGNESIUM OXIDE 400 MG TAB PO SCH ×2 (08:07→20:31)
[2018-08-11] MEDS: MULTIVITAMINS, THERA 1 EACH TAB PO SCH (08:07)
[2018-08-11] MEDS: THIAMINE 100 MG TAB PO SCH ×2 (08:07→17:48)
[2018-08-11 09:34] LABS: ALT 98 U/L (21-72); AST 124 U/L (17-59); African American GFR (CKD) >90 (>60 ml/min/1.73 sqM); Albumin 3.5 g/dL (3.5-5.0); Alkaline Phosphatase 81 U/L (38-126); Anion Gap 10 mmol/L; Blood Urea Nitrogen 5 mg/dL (9-20); Calcium 8.2 mg/dL (8.4-10.2); Carbon Dioxide 23 mmol/L (22-30); Chloride 104 mmol/L (98-107); Glucose 79 mg/dL (74-99); Magnesium 1.6 mg/dL (1.6-2.3); Sodium 137 mmol/L (137-145); Total Bilirubin 1.1 mg/dL (0.2-1.3); Total Protein 6.3 g/dL (6.3-8.2)
--- NOTE | 2018-08-11 11:04 | P.PN ---
Subjective Progress Note Date: 08/11/18 Principal diagnosis: EtOH W/D seizure No acute events O/N. No seizure. Less shaky. No new neuro c/o. Objective - Vital Signs Vital signs: Vital Signs Temp 97.8 F 08/11/18 04:45 Pulse 72 08/11/18 04:45 Resp 16 08/11/18 04:45 BP 168/82 08/11/18 04:45 Pulse Ox 97 08/11/18 04:45 Intake & Output 08/10/18 08/11/18 08/11/18 18:59 06:59 18:59 Intake Total 200 Balance 200 Intake: Oral 200 Other: # Voids 2 2 - Exam Gen NAD Pleasant and cooperative MS A+Ox4 Normal speech CN II-XII grossly intact no nystagmus Motor Normal bulk/tone decreased tremor in BUE [place]QUEZ x4 Sens Intact to LT x4 Coord Not tested DTRs 2+/4 sym throughout Gait Deferred - Labs CBC & Chem 7: 08/10/18 03:41 08/11/18 07:57 Labs: Abnormal Lab Results - Last 24 Hours (Table) 08/10/18 08/11/18 Range/Units 09:27 07:57 BUN 5 L (9-20) mg/dL Creatinine 0.50 L (0.66-1.25) mg/dL Calcium 8.2 L (8.4-10.2) mg/dL AST 124 H (17-59) U/L ALT 98 H (21-72) U/L Hep B Core IgM Ab Reactive H (Non-Reactive) Assessment and Plan Assessment: Generalized tonic-clonic seizures, new-onset, likely due to alcohol withdrawal. Plan: -CIWA protocol. -Will not load AED at this time given he has not had recurrent seizures -Thiamine 100mg po qd x3 -CT Head and EEG reviewed -Seizure precautions -Correct all metabolic derangements -He should not drive for 6 months from his last clinical seizure in accordance with the state law of [place]. Patient states he has not driven for 4 years. Same common sense applies to engaging in any activity that may endanger patient and/or others should he have recurrent seizure activity. -d/w patient and primary team. All questions answered. No other inpatient neuro recs at this time. Please call with new questions. Thank you again for this consultation. Time with Patient: Less than 30 (Time spent in direct patient care, greater than 50% of which was spent in [id number] counseling and coordination of care: 25 minutes.)
--- NOTE | 2018-08-11 12:45 | P.PN ---
Progress Note - Text Progress Note Date: 08/11/18 Interval History: Patient is a 73-year-old male who is being seen in follow-up to a consultation. Patient recalled seeing me but could not recall my name or what my profession was other than that I was from the mental part of the hospital. Patient again could not tell me when his 's date of her was. Patient again reported to me that he had only been working at his last job for 7 years and had been laid off, did not retire because of the head injury sustained by a fall 10 years ago. Patient did describe that follows caring a dehumidifier on a stairwell it slipped and he fell. Patient states that he had a brain hemorrhage and needed to follow-up with someone in [place] for 3 appointments afterwards. Patient was unable to tell me that this was the cause for his not continuing to work, per his daughter yesterday this is the reason the patient stopped working 10 years ago. Patient states that he's been drinking up to a quart of alcohol a day since his 's but again could not tell me how long ago that was. Patient continues to insist that he's been cooking, cleaning and taking care of things in his home without any assistance. Patient states that he may nap in the pole burn but doesn't sleep there. When I asked him about money that had been kidnapped in the pole burn he states that he hated it there because someone broke into his safe. Patient states that he hasn't fallen at home as many times as is reported, stating he fell and did break his hip, and did fall once before coming in and may have had 1 seizure. Per the patient's daughter he has been found on the floor several times when she has gone to the house. Patient does not feel he needs any assistance, states that he probably needs to stop using alcohol, but states they've been drinking more because of his 's . Mental Status: Patient is dressed in a hospital gown, makes eye contact and is cooperative. Patient did not exhibit any psychomotor agitation or retardation. Patient's speech was spontaneous, normal volume and rhythm and he is coherent. Patient's responses to questions were not goal-directed and were circumstantial. Patient is not responding to auditory or visual hallucinations, no evidence of tactile hallucinations and patient did discuss the fact that money was being hidden in the pole barn because someone had broken into his safe in his house. Patient continues to insist that he is able to care for his ADLs, that he was cooking for himself, cleaning his own home and caring for his acreage. Patient states that he did fall once before coming to the hospital and may have had a seizure on one occasion before coming to the hospital and confirms that he is drinking about a quart of alcohol a day. Patient is not currently suicidal or homicidal. Patient's mood is pleasant and his affect is appropriate to his mood. patient's insight and judgment are impaired. Patient is alert, oriented to person, location and month and year. Further cognitive testing was not performed. Assessment: I spoke with the director of social media marketing this morning regarding my concerns about this patient returning home to live alone, I also forwarded information on to the director of social media marketing regarding a financial POA that the patient has in place as well as his daughter's statements that they have been applying for guardianship as was suggested in February 2018 when the patient was in the hospital and his was apparently trying to accomplish that prior to her . After seeing the patient, I was informed by case management that social work will be applying for temporary guardianship in this [facility] and attempting to place him in a supervised living situation. When I discussed with the patient that he needed to have supervision when he leaves the hospital he was initially reluctant to have this occur because he stated that he could take care of things himself. Patient then continued to go on and on about how he is paying for everything, his daughter's house, his grandson's vamp cut out worker, his daughter's car, that she is laid off and can take care of him. Patient continues to be a poor historian, his responses to questions are circumstantial with little detail. Plan: Patient requires a supervised living situation, temporary guardian should be obtained as the patient is not able to care for his activities of daily living, not able to manipulate medical information. Patient is reluctant to have a supervised living situation as he feels that he is quite capable of caring for himself, however the patient has fallen and fractured a hip, has been found on the floor at home by his daughter and when brought to the emergency room was evaluated after having multiple falls at home. There is also a question about whether the patient had seizures at home. Patient has been using alcohol at least a quart a day per his report and was advised to stop in February 2018 when seen in consultation by psychiatry. Patient also does state that he has been hiding money in his pole barn because someone broke into the safe in his home. Patient should continue with the analysis or research safety inspector, patient does not require inpatient psychiatric care. Once the patient has been off alcohol for at least 6-8 weeks he can be further assessed regarding his cognitive status. Patient has a history of a head injury 10 years ago with unknown cognitive consequences, has been using alcohol on a daily basis for the last 10 years. Case was discussed with Dr. Posey who was present during part of the interview with the patient, I will sign off the case if there are any further questions or concerns please don't hesitate to contact psychiatry.
--- NOTE | 2018-08-11 17:00 | P.PN ---
Subjective Progress Note Date: 08/11/18 The patient examined at bedside, was seen ambulating the halls without any difficulty with nursing without any difficulties with his gait. Patient not currently going through severe withdrawals his blood pressure is uncontrolled and elevated. 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 The patients daughters is currently seeking guardianship of the patient and social work has been coordinating with this patient's financial POA. Current plan of care is to keep the patient as we plan to obtain urgent guardianship here in [facility] with hopes of placing the patient in adult foster care with supervised living . Discussed case with psychiatry and social work and nursing. Objective - Vital Signs Vital signs: Vital Signs Temp 97.8 F 08/11/18 04:45 Pulse 72 08/11/18 04:45 Resp 16 08/11/18 04:45 BP 168/82 08/11/18 04:45 Pulse Ox 97 08/11/18 04:45 Intake & Output 08/10/18 08/11/18 08/11/18 18:59 06:59 18:59 Intake Total 200 Balance 200 Intake: Oral 200 Other: # Voids 2 2 - Exam Constitutional: No acute distress, conversant, pleasant Eyes: Anicteric sclerae, moist conjunctiva, no lid-lag, PERRLA ENMT: NC/AT,Oropharynx clear, no erythema, exudates Neck:Supple, FROM, no masses, or JVD, No carotid bruits; No thyromegaly Lungs: Clear to auscultation, Clear to percussion, Normal respiratory effort, no accessory muscle use Cardiovascular: Heart regular in rate and rhythm, No murmurs, gallops, or rubs no peripheral edema Abdominal: Soft Nontender, nom distended, no guarding, no rebound or rigidity, Normoactive bowel sounds No hepatomegaly, No splenomegaly, No palpable mass No abdominal wall hernia noted Skin: Normal temperature, tone, texture, turgor, No induration No subcutaneous nodules, No rash, lesions, No ulcers Extremities:No digital cyanosis No clubbing, Pedal pulses intact and symmetr ical Radial pulses intact and symmetrical Normal gait and station, No calf tenderness Psychiatric: Flat affect, no current suicidal ideation, denies any auditory or visual hallucinations Neuro: Muscles Strength 5/5 in all 4 extremities, Sensation to light touch grossly present throughout, Cranial nerves II-XII grossly intact. No focal sensory deficits - Labs CBC & Chem 7: 08/10/18 03:41 08/11/18 07:57 Labs: Abnormal Lab Results - Last 24 Hours (Table) 08/10/18 08/11/18 Range/Units 09:27 07:57 BUN 5 L (9-20) mg/dL Creatinine 0.50 L (0.66-1.25) mg/dL Calcium 8.2 L (8.4-10.2) mg/dL AST 124 H (17-59) U/L ALT 98 H (21-72) U/L Hep B Core IgM Ab Reactive H (Non-Reactive) Assessment and Plan (1) Chronic alcohol dependence, continuous Narrative/Plan: * Continue symptom triggered CIWA with withdrawal protocol with Ativan as needed * Previously has been on Librium in previous hospitalization which was discontinued secondary to worsening transaminitis Current Visit: Yes Status: Acute Code(s): F10.20 - ALCOHOL DEPENDENCE, UNCOMPLICATED SNOMED Code(s): 722302510 (2) Alcoholic hepatitis Narrative/Plan: * Ongoing alcoholism * Transaminitis secondary to alcoholic hepatitis and fatty liver previously seen on ultrasound and also on CAT scan * Order records indicates patient has not had hep panel will order one today Current Visit: Yes Status: Acute Code(s): K70.10 - ALCOHOLIC HEPATITIS WITH OUT ASCITES SNOMED Code(s): 827232744 (3) Hypomagnesemia Narrative/Plan: * Replace and recheck * plan to initiate daily replacement at 400 mg by mouth twice a day Current Visit: No Status: Resolved Code(s): E83.42 - HYPOMAGNESEMIA SNOMED Code(s): 104235860 (4) Perceptual disturbances and seizures concurrent with and due to alcohol withdrawal Narrative/Plan: * Consulted neurology for further recommendations * Likely related to alcohol withdrawal and electrolyte abnormalities being profound hypomagnesemia 1.2 Current Visit: Yes Status: Resolved Code(s): F10.232 - ALCOHOL DEPENDENCE W WITHDRAWAL WITH PERCEPTUAL DISTURBANCE; R56.9 - UNSPECIFIED CONVULSIONS SNOMED Code(s): 651821813 (5) Depression Narrative/Plan: * Awaiting psychiatry consultation and further recommendations * Recent adjustment disorder after his this past worsening his alcoholism and depression * Currently not suicidal discontinue one-to-one sitter Current Visit: Yes Status: Acute Code(s): F32.9 - MAJOR DEPRESSIVE DISORDER, SINGLE EPISODE, UNSPECIFIED SNOMED Code(s): 16073678 (6) Suicidal ideation Current Visit: Yes Status: Acute Code(s): R45.851 - SUICIDAL IDEATIONS SNOMED Code(s): 5125128 (7) Accelerated hypertension Narrative/Plan: * Blood pressure still elevated received a dose of clonidine yesterday * We'll titrate up his metoprolol to 50 mg by mouth twice a day, will slow down his IV fluids to KVO Current Visit: Yes Status: Acute Code(s): I10 - ESSENTIAL (PRIMARY) HYPERTENSION SNOMED Code(s): 51442063 Plan: Anticipated discharge 1-2 days * We'll follow consultants recommendation * Patient not allowed to leave AMA will need to be petitioned if he attempts to leave * Continue one-to-one health safety engineer * Continue with seizure precautions
[2018-08-11] MEDS: LORazepam 2 MG/ML INJ IV PRN (21:43)
[2018-08-11 23:24] LABS: Hepatitis B Surface AB- Quant 161.5 mIU/mL
--- NOTE | 2018-08-11 23:30 | P.CONS ---
History of Present Illness - Reason for Consult Consult date: 08/11/18 Positive hepatitis B core IgM anybody Requesting physician: Jeremias Posey - Chief Complaint Frequent falls and excessive drinking - History of Present Illness Patient is a 73-year-old male who has been brought into the ER at [facility] by his daughter with chief complaints of frequent falls over the last few weeks, apparently the patient has been drinking heavily after the of his 2 months ago, patient denies any new sexual partners or using any drugs the admit to heavy drinking denies having any fever or chills and no headache no chest pain shortness of breath or cough no abdominal pain no nausea no vomiting patient was noticed to have elevated liver enzyme hepatitis panel was checked and hepatitis B core IgM came back positive that prompted this infectious disease consultation, patient did mention that he was once fixated f or hepatitis B but is not really clear when exactly he has the vaccination done and categorically denies having any sexual activity for the last few months and no new partners denies IV drugs or other recreational drugs Review of Systems Positive points has been mentioned in HPI rest of the systems negative Past Medical History Past Medical History: Cancer, Chest Pain / Angina, GERD/Reflux Additional Past Medical History / Comment(s): Colon cancer 2008 with surgery, colon polyps, pt denies ever having seizure-old medical record documents possible seizure with hypokalemia, pt states he was a heavy drinker in the past but now a weekend drinker, medical record dated 02/23/18 documents alcohol withdrawl syndrome/chronic encephalopathy/neurocognitive disorder/behavioral disturbance/hypokalemia and hypomagnesemia. History of Any Multi-Drug Resistant Organisms: None Reported Past Surgical History: Orthopedic Surgery Additional Past Surgical History / Comment(s): L leg ORIF with hardware, R arm fracture with hardware, colectomy d/t cancer, colonoscopies, 2013 cardiac cath- mild disease, larygoscopy with polypectomy, vasectomy. Past Anesthesia/Blood Transfusion Reactions: No Reported Reaction Past Psychological History: No Psychological Hx Reported Additional Psychological History / Comment(s): Pt states his spouse 4 weeks ago and that he is depressed but not suicidal. He now lives alone and has a dog. His ruperto and grandchild live 4 miles away. He does not drive, his spouse was the motor driver but he believes he will be able to arrange rides. He has a cane which he uses prn. Smoking Status: Current every day smoker Past Alcohol Use History: Daily, Heavy Additional Past Alcohol Use History / Comment(s): Pt states in the past he was a heavy drinker but states that for the past 4 years he only drinks on the weekend and may occasionally go over 14 drinks over the weekend. He states he last drank 6 weeks ago. Past Drug Use History: None Reported - Past Family History Father History Unknown: Yes Family Medical History: Coronary Artery Disease (CAD), Myocardial Infarction (LA) Additional Family Medical History / Comment(s): Father of a LA at the age og 52 yrs. Mother Additional Family Medical History / Comment(s): Mother was a smoker/drinker and at the age of 85yrs. Medications and Allergies Home Medications Medication Instructions Recorded Confirmed Type Magnesium Oxide 400 mg PO DAILY 06/07/18 08/09/18 History Potassium Chloride ER [K-Dur 20] 20 meq PO DAILY 06/07/18 08/09/18 History ALPRAZolam [Xanax] 0.25 mg PO BID 08/09/18 08/09/18 History Cholecalciferol [Vitamin D3 (25 5,000 unit PO DAILY 08/09/18 08/09/18 History Mcg = 1000 Iu)] HYDROcodone/APAP 5-325MG [[place] 1 tab PO DAILY PRN 08/09/18 08/09/18 History 5-325] Metoprolol Tartrate [Lopressor] 50 mg PO DAILY 08/09/18 08/09/18 History Allergies Allergy/AdvReac Type Severity Reaction Status Date / Time No Known Allergies Allergy Verified 08/09/18 16:01 Physical Exam Vitals: Vital Signs Temp Pulse Resp BP Pulse Ox 08/11/18 13:35 98.2 F 66 18 196/110 97 08/11/18 04:45 97.8 F 72 16 168/82 97 08/10/18 20:33 98.2 F 67 20 162/90 94 L Intake and Output 08/11/18 08/11/18 08/11/18 06:59 14:59 22:59 Intake Total 0 Balance 0 Intake: Oral 0 Other: # Voids 2 2 GENERAL DESCRIPTION: An elderly male up in the bed, no distress. No tachypnea or accessory muscle of respiration use. HEENT: Shows Pallor , no scleral icterus. Oral mucous membrane is dry. No pharyngeal erythema or thrush NECK: Trachea central, no thyromegaly. LUNGS: Unlabored breathing. Clear to auscultation anteriorly. No wheeze or crackle. HEART: S1, S2, regular rate and rhythm. No loud murmur ABDOMEN: Soft, no tenderness , guarding or rigidity, no organomegaly EXTREMITIES: No edema of feet. SKIN: No rash, no masses palpable. NEUROLOGICAL: The patient is awake, alert, oriented x3, mood and affect normal Results CBC & Chem 7: 08/10/18 03:41 08/11/18 07:57 Labs: Abnormal Lab Results - Last 24 Hours (Table) 08/10/18 08/11/18 Range/Units 09:27 07:57 BUN 5 L (9-20) mg/dL Creatinine 0.50 L (0.66-1.25) mg/dL Calcium 8.2 L (8.4-10.2) mg/dL AST 124 H (17-59) U/L ALT 98 H (21-72) U/L Hep B Core IgM Ab Reactive H (Non-Reactive) Assessment and Plan Assessment: 1-patient with hepatitis B core IgM positive and this patient was noticed to have mildly elevated liver enzymes which could have been more likely related to his excessive drinking of alcohol or the last few months, with hepatitis B core IgM positive questionable falsely positive in this patient currently with no risk factor for acquiring hepatitis B as the patient categorically denies any new sexual oriented and engaging in risky behavior or drugs Plan: 1-we will obtain hepatitis Be antigen, hepatitis B surface anybody and hepatitis B DNA quantitative 2-repeat the liver enzymes normal 3-avoid any hepatotoxic agents No need for any systemic antiviral therapy at this point till the diagnosis established we will follow up on clinical condition and cultures to further adjust medication if needed Thank you for this consultation will follow this patient along with you Time with Patient: Greater than 30
[2018-08-12] MEDS: LORazepam 2 MG/ML INJ IV PRN (04:27)
[2018-08-12 08:17] LABS: ALT 91 U/L (21-72); AST 104 U/L (17-59); African American GFR (CKD) >90 (>60 ml/min/1.73 sqM); Albumin 3.8 g/dL (3.5-5.0); Alkaline Phosphatase 87 U/L (38-126); Anion Gap 12 mmol/L; Blood Urea Nitrogen 5 mg/dL (9-20); Calcium 8.6 mg/dL (8.4-10.2); Carbon Dioxide 23 mmol/L (22-30); Chloride 102 mmol/L (98-107); Glucose 78 mg/dL (74-99); Magnesium 1.4 mg/dL (1.6-2.3); Potassium 4.4 mmol/L (3.5-5.1); Sodium 137 mmol/L (137-145); Total Bilirubin 1.1 mg/dL (0.2-1.3); Total Protein 6.6 g/dL (6.3-8.2)
[2018-08-12] MEDS: THIAMINE 100 MG TAB PO SCH ×2 (08:24→17:10)
[2018-08-12] MEDS: MAGNESIUM OXIDE 400 MG TAB PO SCH ×2 (08:24→20:33)
[2018-08-12] MEDS: MULTIVITAMINS, THERA 1 EACH TAB PO SCH (08:24)
[2018-08-12] MEDS: ENOXAPARIN 40 MG/0.4 ML SYRINGE SQ SCH (08:25)
[2018-08-12] MEDS: POTASSIUM CHLORIDE ER 20 MEQ TAB.ER PO SCH (08:25)
[2018-08-12] MEDS: METOPROLOL TARTRATE 50 MG TAB PO SCH ×2 (08:25→20:33)
[2018-08-12] MEDS: SODIUM CHLORIDE 0.9% 1,000 ML IV SCH ×3 (12:47→23:02)
[2018-08-12] MEDS ORDERED: MAGNESIUM SULFATE-D5W PMX 1 GM in DEXTROSE/WATER 1 100ML.BAG IVPB ONE (13:10)
--- NOTE | 2018-08-12 15:01 | P.PN ---
Subjective Progress Note Date: 08/12/18 Patient reported that he is feeling fine and he wants to go home. He stated that physical therapy evaluated him and he was able to walk and take stairs without any assistance. Nurses reported that patient was having positive CIWA score and received Ativan last night. Patient does have history of I'll call abuse and he increased the conception after his 2 weeks ago. Patient did mention about suicide ideation but now he is denying it. Patient was placed on one-to-one supervision psychiatry has evaluated him and continued one-to-one supervision as of yesterday. Patient's hepatitis profile was significant for Hep-B s ab positive and core Ig M positive. Patient stated that he never had seizures in the past but was reported that patient has 3 episodes of grand mal seizures before he was brought into the emergency department. Patient did not had any seizures since then. Urology has evaluated and recommended no driving for 6 months. In review of blood work patient liver enz ymes seems to be improving magnesium was noted low at 1.4. Patient denies chest pain, palpitation, headache, dizziness, lightheadedness, fever, chills and denies rest of the review of system. Objective - Vital Signs Vital signs: Vital Signs Temp 99.0 F 08/12/18 13:56 Pulse 66 08/12/18 13:56 Resp 20 08/12/18 13:56 BP 148/86 08/12/18 13:56 Pulse Ox 95 08/12/18 13:56 Intake & Output 08/11/18 08/12/18 08/12/18 18:59 06:59 18:59 Intake Total 0 520 Balance 0 520 Intake: Oral 0 520 Other: # Voids 2 1 3 # Bowel Movements 0 - Constitutional General appearance: Present: cooperative, no acute distress - EENT Eyes: Present: EOMI, normal appearance ENT: Present: hearing grossly normal - Neck Neck: Present: normal ROM. Absent: lymphadenopathy, rigidity - Respiratory Respiratory: bilateral: CTA (without wheezes/ronchi/crackles.) - Cardiovascular Rhythm: regular Heart sounds: normal: S1, S2 Abnormal Heart Sounds: Absent: systolic murmur, diastolic murmur, S3 Gallop, S4 Gallop - Gastrointestinal General gastrointestinal: Present: normal bowel sounds, soft. Absent: distended, rigid, tenderness - Neurologic Neurologic: Present: CNII-XII intact, focal deficits - Psychiatric Psychiatric Comment(s): It appears that pt. is lacking appropriate judgment and insight for his illness as he is stating that he will leave the hospital regardless of being discharged today. Psychiatric: Present: A&O x's 3, intact judgment & insight - Allied health notes Allied health notes reviewed: nursing - Labs CBC & Chem 7: 08/10/18 03:41 08/12/18 07:28 Labs: Abnormal Lab Results - Last 24 Hours (Table) 08/11/18 08/12/18 Range/Units 07:57 07:28 BUN 5 L (9-20) mg/dL Creatinine 0.53 L (0.66-1.25) mg/dL Magnesium 1.4 L (1.6-2.3) mg/dL AST 104 H (17-59) U/L ALT 91 H (21-72) U/L Hep Bs Antibody Reactive H (Non-Reactive) Assessment and Plan (1) Accelerated hypertension Current Visit: Yes Status: Acute Priority: Medium Code(s): I10 - ESSENTIAL (PRIMARY) HYPERTENSION SNOMED Code(s): 19439534 (2) Alcohol abuse Current Visit: Yes Status: Acute Priority: High Code(s): F10.10 - ALCOHOL ABUSE, UNCOMPLICATED SNOMED Code(s): 43632006 (3) Alcohol intoxication Current Visit: Yes Status: Acute Priority: High Code(s): F10.929 - ALCOHOL USE, UNSPECIFIED WITH INTOXICATION, UNSPECIFIED SNOMED Code(s): 76672137 (4) Chronic alcohol dependence, continuous Current Visit: Yes Status: Acute Priority: High Code(s): F10.20 - ALCOHOL DEPENDENCE, UNCOMPLICATED SNOMED Code(s): 526830145 (5) Suicidal ideation Current Visit: Yes Status: Acute Priority: High Code(s): R45.851 - SUICIDA L IDEATIONS SNOMED Code(s): 6479012 (6) Alcohol withdrawal syndrome Narrative/Plan: Required ATIVAN within past 24 hours. Current Visit: Yes Status: Acute Priority: High Code(s): F10.239 - ALCOHOL DEPENDENCE WITH WITHDRAWAL, UNSPECIFIED SNOMED Code(s): 725498265 (7) Encephalopathy chronic Current Visit: No Status: Acute Priority: High Code(s): G93.49 - OTHER ENCEPHALOPATHY SNOMED Code(s): 68227703 (8) Major neurocognitive disorder due to another medical condition with behavioral disturbance Current Visit: Yes Status: Acute Priority: High Code(s): F02.81 - DEMENTIA IN OTH DISEASES CLASSD ELSWHR W BEHAVIORAL DISTURB SNOMED Code(s): 538073830 (9) Transaminitis Current Visit: Yes Status: Acute Priority: High Code(s): R74.0 - NONSPEC ELEV OF LEVELS OF TRANSAMNS & LACTIC ACID DEHYDRGNSE SNOMED Code(s): 302338665 (10) Hypomagnesemia Current Visit: Yes Status: Resolved Priority: Medium Code(s): E83.42 - HYPOMAGNESEMIA SNOMED Code(s): 388465963 Plan: Patient was counseled regarding appropriate management of his alcohol dependence but was not well taken by him. Also he was educated about his [employer] his risk of falling and complications associated with it but it appears that he was unable to analyze the medical information to the best of his care. Nurses reported that patient's daughter is trying to get guardianship of the patient. Although clinically patient is improving but he is not totally out of the mueller to be safely discharged home in his preadmission environment. We need psych help in evaluation of suicidal ideation and clearance for discharge. I will replace magnesium intravenously and will continue oral replacement and will monitor labs in the morning. Patient wants to go home but in my opinion he is not safe to go home it was told to the nurse to come acute with patient's daughter if patient's daughter can petition and psychiatrist can do clinical certification that patient can be kept against his wishes for his own safety and better medical care. Patient was advised not to drive for next 6 months as recommended by the neurologist on that patient stated that he doesn't have a license or a car and he does not drive. I will continue to monitor him closely. Nurses going to communicate with the psychiatry team regarding their final recommendation and petition/clinical certification if indicated. Time with Patient: Less than 30
[2018-08-12] MEDS: HYDROcodone/APAP 5-325MG 1 EACH TAB PO PRN (20:33)
--- NOTE | 2018-08-13 00:22 | PN ---
PROGRESS NOTE DATE OF SERVICE: 08/12/2018. REASON FOR FOLLOWUP: Positive hepatitis B antibody. INTERVAL HISTORY: The patient is currently afebrile. Patient has been breathing comfortably. Denies having any chest pain. No cough. No nausea, no vomiting. No abdominal pain. No diarrhea. PHYSICAL EXAMINATION: Blood pressure 148/86, pulse of 66, temperature 99. He is 95% on room air. General description is an elderly male up in the room in no distress. Respiratory system: Unlabored breathing. Clear to auscultation anteriorly. Heart S1, S2. Regular rate and rhythm. Abdomen soft. No tenderness. LABS: BUN of 5, creatinine 0.53. Liver enzymes have improved. ALT is down to 91. Hepatitis B surface antibody is positive. Hepatitis B antigen and hepatitis B DNA currently pending. DIAGNOSTIC IMPRESSION AND PLAN: Patient with hepatitis B core antibody positive with question of possible positive falsely positive hepatitis B surface antibodies were positive. Clinically doubt acute hepatitis B. Waiting for hepatitis B DNA and antigen. No need for any antiviral therapy at this point. Continue supportive care. MMODL / IJN: [id number] /
[2018-08-13] MEDS: METOPROLOL TARTRATE 50 MG TAB PO SCH ×2 (07:46→20:53)
[2018-08-13] MEDS: MULTIVITAMINS, THERA 1 EACH TAB PO SCH (07:46)
[2018-08-13] MEDS: POTASSIUM CHLORIDE ER 20 MEQ TAB.ER PO SCH (07:46)
[2018-08-13] MEDS: MAGNESIUM OXIDE 400 MG TAB PO SCH ×2 (07:47→20:53)
[2018-08-13] MEDS: ENOXAPARIN 40 MG/0.4 ML SYRINGE SQ SCH (07:47)
[2018-08-13 08:06] LABS: ALT 79 U/L (21-72); AST 79 U/L (17-59); African American GFR (CKD) >90 (>60 ml/min/1.73 sqM); Albumin 3.8 g/dL (3.5-5.0); Alkaline Phosphatase 74 U/L (38-126); Anion Gap 8 mmol/L; Blood Urea Nitrogen 9 mg/dL (9-20); Calcium 8.8 mg/dL (8.4-10.2); Carbon Dioxide 29 mmol/L (22-30); Chloride 99 mmol/L (98-107); Glucose 81 mg/dL (74-99); Magnesium 1.5 mg/dL (1.6-2.3); Sodium 136 mmol/L (137-145); Total Bilirubin 0.9 mg/dL (0.2-1.3); Total Protein 6.5 g/dL (6.3-8.2)
[2018-08-13] MEDS: THIAMINE 100 MG TAB PO SCH ×2 (08:38→17:37)
--- NOTE | 2018-08-13 09:29 | P.PN ---
Subjective Progress Note Date: 08/13/18 Pt. reports that he is doing fine, per nurse pt. did received one dose of Ativan per CIWA protocol early this morning. Psych still wants him on 1-1 supervision due to his condition. Pt's daughter is pursuing Legal Guardianship for pt's safety and security. Per I.D. supportive care until all w/u testing are available for Hep-B. Pt's LFT's are improving on the f/u labs today. Pt. reports eating well and having BMs ok, wants to go home today. He denies CP, Palpitaitons, SOB, Diaphoresis, Dizziness, N/V/D, FC and enies rest of the ROS. Objective - Vital Signs Vital signs: Vital Signs Temp 98.3 F 08/13/18 05:00 Pulse 65 08/13/18 05:00 Resp 18 08/13/18 05:00 BP 162/82 08/13/18 05:00 Pulse Ox 96 08/13/18 05:00 Intake & Output 08/12/18 08/13/18 08/13/18 18:59 06:59 18:59 Intake Total 520 680 Balance 520 680 Intake: Oral 520 680 Other: # Voids 1 2 - Constitutional General appearance: Present: cooperative, no acute distress - EENT Eyes: Present: EOMI, normal appearance ENT: Present: hearing grossly normal, NA/AT - Neck Neck: Present: normal ROM. Absent: lymphadenopathy, rigidity - Respiratory Respiratory: bilateral: CTA (No Wheezes/Ronhci/Crackles.) - Cardiovascular Rhythm: regular Heart sounds: normal: S1, S2 Abnormal Heart Sounds: Absent: systolic murmur, diastolic murmur, S3 Gallop, S4 Gallop - Gastrointestinal General gastrointestinal: Present: normal bowel sounds, soft. Absent: distended, rigid, tenderness - Neurologic Neurologic: Present: CNII-XII intact, focal deficits - Musculoskeletal Musculoskeletal: Present: gait normal, strength equal bilaterally - Psychiatric Psychiatric: Present: A&O x's 3, appropriate affect. Absent: intact judgment & insight - Allied health notes Allied health notes reviewed: nursing - Labs CBC & Chem 7: 08/10/18 03:41 08/13/18 06:31 Labs: Abnormal Lab Results - Last 24 Hours (Table) 08/13/18 Range/Units 06:31 Sodium 136 L (137-145) mmol/L Creatinine 0.60 L (0.66-1.25) mg/dL Magnesium 1.5 L (1.6-2.3) mg/dL AST 79 H (17-59) U/L ALT 79 H (21-72) U/L Assessment and Plan (1) Accelerated hypertension Current Visit: Yes Status: Acute Priority: Medium Code(s): I10 - ESSENTIAL (PRIMARY) HYPERTENSION SNOMED Code(s): 13480448 (2) Alcohol abuse Current Visit: Yes Status: Acute Priority: High Code(s): F10.10 - ALCOHOL ABUSE, UNCOMPLICATED SNOMED Code(s): 84568803 (3) Alcohol intoxication Current Visit: Yes Status: Acute Priority: High Code(s): F10.929 - ALCOHOL USE, UNSPECIFIED WITH INTOXICATION, UNSPECIFIED SNOMED Code(s): 81398611 (4) Chronic alcohol dependence, continuous Current Visit: Yes Status: Acute Priority: High Code(s): F10.20 - ALCOHOL DEPENDENCE, UNCOMPLICATED SNOMED Code(s): 546560578 (5) Suicidal ideation Current Visit: Yes Status: Acute Priority: High Code(s): R45.851 - SUICIDAL IDEATIONS SNOMED Code(s): 1979052 (6) Alcohol withdrawal syndrome Current Visit: Yes Status: Acute Priority: High Code(s): F10.239 - ALCOHOL DEPENDENCE WITH WITHDRAWAL, UNSPECIFIED SNOMED Code(s): 008435332 (7) Encephalopathy chronic Current Visit: No Status: Acute Priority: High Code(s): G93.49 - OTHER ENCEPHALOPATHY SNOMED Code(s): 28354597 (8) Major neurocognitive disorder due to another medical condition with behavioral disturbance Current Visit: Yes Status: Acute Priority: High Code(s): F02.81 - DEMENTIA IN OTH DISEASES CLASSD ELSWHR W BEHAVIORAL DISTURB SNOMED Code(s): 365194459 (9) Transaminitis Current Visit: Yes Status: Acute Priority: High Code(s): R74.0 - NONSPEC ELEV OF LEVELS OF TRANSAMNS & LACTIC ACID DEHYDRGNSE SNOMED Code(s): 867868437 (10) Hypomagnesemia Current Visit: Yes Status: Resolved Priority: Medium Code(s): E83.42 - HYPOMAGNESEMIA SNOMED Code(s): 016633359 Plan: Pt. still needing CIWA protocol for alcohol withdrawal management, he was suicidal and has been placed on 1-1 supervision (Psych following), Magnesium still slightly low and will replace it and monitor in the morning. Pt's LFTs are improving and does not need to monitor any further at this point in time. Care coordinated with team. Time with Patient: Less than 30
[2018-08-13] MEDS ORDERED: MAGNESIUM SULFATE-D5W PMX 1 GM in DEXTROSE/WATER 1 100ML.BAG IVPB ONE (10:00)
[2018-08-13] MEDS: ALPRAZolam 0.25 MG TAB PO PRN ×2 (13:39→13:41)
[2018-08-13] MEDS: NICOTINE 14MG/24HR PATCH TRANSDERM SCH (13:39)
--- NOTE | 2018-08-13 14:07 | PN ---
PROGRESS NOTE DATE OF SERVICE: 08/13/2018 REASON FOR FOLLOWUP: Positive hepatitis B serology with question of acute hepatitis B. INTERVAL HISTORY: The patient is currently afebrile. The patient has been feeling better. Breathing comfortably. Patient denies having any chest pain or shortness of breath. No cough. No abdominal pain or any diarrhea. PHYSICAL EXAMINATION: Blood pressure is 141/87 with a pulse of 72, temperature 98, he is 97% on room air. General description is an elderly male, up in the room in no distress. RESPIRATORY SYSTEM: Unlabored breathing, clear to auscultation anteriorly. HEART: S1, S2. Regular rate and rhythm. ABDOMEN: Soft, no tenderness. LABS: BUN 9, creatinine 0.60. Hepatitis C antigen and hepatitis B DNA is currently pending. DIAGNOSTIC IMPRESSION AND PLAN: Patient with a positive hepatitis B core antibodies. However, the patient's hepatis antibodies are positive as well. We are waiting for the hepatitis B DNA to clinically doubt acute hepatitis B. No need for antiviral. Plan discussed with admitting physician. Continue supportive care. MMODL / CHINMAYN: [id number] /
[2018-08-13] MEDS: SODIUM CHLORIDE 0.9% 1,000 ML IV SCH (16:11)
[2018-08-13] MEDS: HYDROcodone/APAP 5-325MG 1 EACH TAB PO PRN (19:52)
[2018-08-14] MEDS: ALPRAZolam 0.25 MG TAB PO PRN (00:23)
[2018-08-14] MEDS: LORazepam 2 MG/ML INJ IV PRN (02:27)
[2018-08-14] MEDS: SODIUM CHLORIDE 0.9% 1,000 ML IV SCH ×3 (04:05→21:11)
[2018-08-14] MEDS: METOPROLOL TARTRATE 50 MG TAB PO SCH (08:39)
[2018-08-14] MEDS: THIAMINE 100 MG TAB PO SCH ×2 (08:39→16:59)
[2018-08-14] MEDS: MAGNESIUM OXIDE 400 MG TAB PO SCH ×2 (08:39→21:21)
[2018-08-14] MEDS: ENOXAPARIN 40 MG/0.4 ML SYRINGE SQ SCH (08:39)
[2018-08-14] MEDS: MULTIVITAMINS, THERA 1 EACH TAB PO SCH (08:39)
[2018-08-14] MEDS: POTASSIUM CHLORIDE ER 20 MEQ TAB.ER PO SCH (08:39)
[2018-08-14] MEDS: NICOTINE 14MG/24HR PATCH TRANSDERM SCH (08:40)
--- NOTE | 2018-08-14 14:08 | P.PN ---
Subjective Progress Note Date: 08/14/18 Principal diagnosis: falls Patient is a 73-year-old male with a past medical history of alcohol abuse with multiple falls and suicidal thoughts, with history of colon cancer in 2009 and possible seizure disorder. On presentation to the ER report was admitted by his daughter who brought him to be lethargic with possible seizure activity lasting approximately similarly 1 minute. In the ER he underwent an extensive evaluation. His initial vital signs were within normal limits. Initial laboratory analysis showed low magnesium at 1.2, AST 146, ALT 102. Chest x-ray showed no acute process. CT chest abdomen and pelvis showed numerous thoracic and lumbar compression fractures, thoracic fractures are not different than computed tomography scan of 06/03/18. CT head and cervical spine showed cerebral atrophy, no acute intracranial abnormality, and spondylosis at C5-6, pelvic x-ray shows an old nonunion chip fracture of the left greater trochanter, femur x-ray shows no acute abnormality of the left and right femur, bilateral forearm x-ray showed no acute process. Bilateral humerus fractures showed no acute abnormality. Bilateral wrist x-rays show a left scaphoid fracture of uncertain age, could be subacute fracture and an old right distal radius fracture with right wrist deformity. He was admitted for further monitoring. His placed on CIWA protocol. He was seen by neurology who felt that his seizure was related to acute alcohol withdrawal. EEG was done which did not show any seizure activity. They recommended continue CIWA protocol, seizure precautions, and no driving for at least 6 months. He was seen by psychiatry who felt that the patient had severe alcohol use disorder with possible neurocognitive disorder. 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 Apparently in the patient already has a financial power of attorney at law in place and his daughter has been working on gaining guardianship as was suggested February 2018. Currently social work is applying for [employer]. He will need a supervised living situation. Recommend further assessment of his cognition once he has been off of alcohol for 6-8 weeks. He was found to have positive hepatitis B core antibodies. He was seen by ID and currently hepatitis B DNA is pending. Despite aggressive magnesium replacement magnesium levels remain low. Patient seen and examined and family conference room. He states that he is feeling fine and wants to go home. He denies any weakness or difficulty with thought process. He gets acutely agitated states that he need to repeat his c oliver better. He has no questions at this time. Objective - Vital Signs Vital signs: Vital Signs Temp 97.5 F L 08/14/18 12:33 Pulse 66 08/14/18 12:33 Resp 16 08/14/18 12:33 BP 154/93 08/14/18 12:33 Pulse Ox 94 L 08/14/18 12:33 Intake & Output 08/13/18 08/14/18 08/14/18 18:59 06:59 18:59 Intake Total 1250 Balance 1250 Intake: Intake, IV Titration 100 Amount Magnesium Sulfate-D5w Pmx 100 1 gm In Dextrose/Water 1 100ml.bag @ 100 mls/hr IVPB ONCE ONE Rx#: [id number] Oral 1150 Other: Voiding Method Toilet Toilet Toilet # Voids 2 3 - Exam General: non toxic, no distress, appears at stated age Derm: warm, dry Head: atraumatic, normocephalic, symmetric Eyes: EOMI, no lid lag, anicteric sclera Mouth: no lip lesion, mucus membranes moist Cardiovascular: S1S2 reg, no murmur, positive posterior tibial pulse bilateral, Lungs: CTA bilateral, no rhonchi, no rales , no accessory muscle use Abdominal: soft, nontender to palpation, no guarding, no appreciable organomegaly Ext: no gross muscle atrophy, no edema, no contractures Neuro: CN II-XI grossly intact, no focal neuro deficits Psych: Alert, oriented to being in the hospital, easily angered - Labs CBC & Chem 7: 08/10/18 03:41 08/13/18 06:31 Assessment and Plan Assessment: Alcohol abuse, intoxication on arrival, with alcohol withdrawal seizure, alcohol abuse with impending withdrawal -Continue with CIWA, folic acid, thiamine supplementation - seizure precautaions - neuro recs appreciated- no AED, no drivign X 6 months, seizure precautions Neurocognitive disorder - guardianship being obtained - will need supervision on D/C on 08/16/18 -Psych has signed off Transaminitis secondary to alcohol with positive hepatitis B -Improving -Hepatitis DNA 161.5, infectious disease following -Will not likely require treatment at this point in time -No signs of liver lesion on CT abdomen and pelvis Accelerated hypertension -Likely secondary to alcohol abuse -Currently has no signs of withdrawal but blood pressure still elevated -Increase metoprolol to 75 mg twice daily Suicidal ideation, ruled out DVT prophylaxis:ambulation Discussed with: patient, nursing Anticipated discharge: 08/16/[address]: [facility] A total of 65 minutes was spent on the care of this complex patient more than 50% of the time was spent in counseling and care coordination.
--- NOTE | 2018-08-14 20:17 | PN ---
PROGRESS NOTE DATE OF SERVICE: 08/14/2018. REASON FOR FOLLOWUP: Positive Hepatitis B serology. INTERVAL HISTORY: The patient is currently afebrile. Patient has been insisting on going home and why he is staying in the Hospital. The patient denies having any headache, no chest pain, shortness of breath or cough. No abdominal pain, no diarrhea. PHYSICAL EXAMINATION: Blood pressure 152/93 with a pulse of 66. Temperature 97.5. He is 94% on room air. General description is an elderly male up in the bed in no distress. Respiratory system: Unlabored breathing. Clear to auscultation anteriorly. Heart S1, S2. Regular rate and rhythm. Abdomen soft, no tenderness. LABS: Hepatitis B, DNA and currently pending. DIAGNOSTIC IMPRESSION AND PLAN: Patient with hepatitis B core antibody positive, IgM in this patient who also has hepatitis B surface antibody positive, question of possible false-positive. Clinical suspicion low for acute hepatitis B. We are waiting for the hepatitis B antigen as well as DNA to finalize before further workup is ordered. Continue supportive care. MMODL / IJN: [id number] /
[2018-08-14] MEDS: METOPROLOL TARTRATE 25 MG TAB PO SCH (21:21)
[2018-08-14] MEDS: MELATONIN 3 MG TABLET PO SCH (23:42)
[2018-08-15 07:48] LABS: HCT 42.4 % (39.0-53.0); HGB 13.9 gm/dL (13.0-17.5); MCH 34.2 pg (25.0-35.0); MCHC 32.8 g/dL (31.0-37.0); Macrocytosis Slight; Platelet Count 217 k/uL (150-450); RBC 4.07 m/uL (4.30-5.90); RDW 14.5 % (11.5-15.5)
[2018-08-15 08:02] LABS: ALT 66 U/L (21-72); AST 73 U/L (17-59); African American GFR (CKD) >90 (>60 ml/min/1.73 sqM); Albumin 3.5 g/dL (3.5-5.0); Alkaline Phosphatase 67 U/L (38-126); Anion Gap 6 mmol/L; Blood Urea Nitrogen 14 mg/dL (9-20); Calcium 8.9 mg/dL (8.4-10.2); Carbon Dioxide 29 mmol/L (22-30); Chloride 104 mmol/L (98-107); Glucose 105 mg/dL (74-99); Potassium 4.9 mmol/L (3.5-5.1); Sodium 139 mmol/L (137-145); Total Bilirubin 0.5 mg/dL (0.2-1.3); Total Protein 6.1 g/dL (6.3-8.2)
[2018-08-15] MEDS: SODIUM CHLORIDE 0.9% 1,000 ML IV SCH ×2 (08:42→19:11)
[2018-08-15] MEDS: ENOXAPARIN 40 MG/0.4 ML SYRINGE SQ SCH (08:44)
[2018-08-15] MEDS: THIAMINE 100 MG TAB PO SCH ×2 (08:44→19:13)
[2018-08-15] MEDS: METOPROLOL TARTRATE 25 MG TAB PO SCH ×2 (08:45→20:03)
[2018-08-15] MEDS: POTASSIUM CHLORIDE ER 20 MEQ TAB.ER PO SCH (08:45)
[2018-08-15] MEDS: NICOTINE 14MG/24HR PATCH TRANSDERM SCH (08:45)
[2018-08-15] MEDS: MULTIVITAMINS, THERA 1 EACH TAB PO SCH (08:45)
[2018-08-15] MEDS: MAGNESIUM OXIDE 400 MG TAB PO SCH ×2 (08:45→20:03)
--- NOTE | 2018-08-15 13:29 | P.PN ---
Subjective Progress Note Date: 08/15/18 Principal diagnosis: falls Patient is a 73-year-old male with a past medical history of alcohol abuse with multiple falls and suicidal thoughts, with history of colon cancer in 2009 and possible seizure disorder. On presentation to the ER report was admitted by his daughter who brought him to be lethargic with possible seizure activity lasting approximately similarly 1 minute. In the ER he underwent an extensive evaluation. His initial vital signs were within normal limits. Initial laboratory analysis showed low magnesium at 1.2, AST 146, ALT 102. Chest x-ray showed no acute process. CT chest abdomen and pelvis showed numerous thoracic and lumbar compression fractures, thoracic fractures are not different than computed tomography scan of 06/03/18. CT head and cervical spine showed cerebral atrophy, no acute intracranial abnormality, and spondylosis at C5-6, pelvic x-ray shows an old nonunion chip fracture of the left greater trochanter, femur x-ray shows no acute abnormality of the left and right femur, bilateral forearm x-ray showed no acute process. Bilateral humerus fractures showed no acute abnormality. Bilateral wrist x-rays show a left scaphoid fracture of uncertain age, could be subacute fracture and an old right distal radius fracture with right wrist deformity. He was admitted for further monitoring. His placed on CIWA protocol. He was seen by neurology who felt that his seizure was related to acute alcohol withdrawal. EEG was done which did not show any seizure activity. They recommended continue CIWA protocol, seizure precautions, and no driving for at least 6 months. He was seen by psychiatry who felt that the patient had severe alcohol use disorder with possible neurocognitive disorder. 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 Apparently in the patient already has a financial power of workers compensation defense attorney in place and his daughter has been working on gaining guardianship as was suggested February 2018. Currently social work is applying for [employer]. He will need a supervised living situation. Recommend further assessment of his cognition once he has been off of alcohol for 6-8 weeks. He was found to have positive hepatitis B core antibodies. He was seen by ID and currently hepatitis B DNA is pending. Despite aggressive magnesium replacement magnesium levels remain low and patient started on oral replacement Patient seen and examined. No chest pain, SOB, or nausea. Agitated about going some where and frustrated about his slurry blender and wanting to speak with him, insisting that his daughter is stealing money from him. Objective - Vital Signs Vital signs: Vital Signs Temp 97.5 F L 08/15/18 04:54 Pulse 65 08/15/18 08:00 Resp 18 08/15/18 04:54 BP 143/87 08/15/18 04:54 Pulse Ox 97 08/15/18 04:54 Intake & Output 08/14/18 08/15/18 08/15/18 18:59 06:59 18:59 Intake Total 600 1200 Balance 600 1200 Intake: Oral 600 1200 Other: Voiding Method Toilet Toilet Toilet # Voids 2 3 - Exam General: non toxic, no distress, appears at stated age Derm: warm, dry Head: atraumatic, normocephalic, symmetric Eyes: EOMI, no lid lag, anicteric sclera Mouth: no lip lesion, mucus membranes moist Cardiovascular: S1S2 reg, no murmur, positive posterior tibial pulse bilateral, Lungs: CTA bilateral, no rhonchi, no rales , no accessory muscle use Abdominal: soft, nontender to palpation, no guarding, no appreciable organomegaly Ext: no gross muscle atrophy, no edema, no contractures Neuro: CN II-XI grossly intact, no focal neuro deficits Psych: Alert, oriented to being in the hospital, frustrated - Labs CBC & Chem 7: 08/15/18 07:15 08/15/18 07:15 Labs: Abnormal Lab Results - Last 24 Hours (Table) 08/15/18 08/15/18 Range/Units 07:15 07:15 RBC 4.07 L (4.30-5.90) m/uL MCV 104.0 H (80.0-100.0) fL Creatinine 0.63 L (0.66-1.25) mg/dL Glucose 105 H (74-99) mg/dL AST 73 H (17-59) U/L Total Protein 6.1 L (6.3-8.2) g/dL Assessment and Plan Assessment: Alcohol abuse, intoxication on arrival, with alcohol withdrawal seizure, alcohol abuse with impending withdrawal -Continue with CIWA, folic acid, thiamine supplementation - seizure precautions - neuro recs appreciated- no AED, no driving X 6 months, seizure precautions Neurocognitive disorder - guardianship being obtained - will need supervision on D/C on 08/16/18 -Psych has signed off Transaminitis secondary to alcohol with positive hepatitis B -Improving -Hepatitis DNA pending, Antibody is 161.5, infectious disease following -Will not likely require treatment at this point in time -No signs of liver lesion on CT abdomen and pelvis Accelerated hypertension, improving -Likely secondary to alcohol abuse -Currently has no signs of withdrawal but blood pressure still elevated -metoprolol to 75 mg twice daily Suicidal ideation, ruled out DVT prophylaxis:ambulation Discussed with: patient, nursing Anticipated discharge: 08/16/[address]: [facility] A total of 25 minutes was spent on the care of this complex patient more than 50% of the time was spent in counseling and care coordination.
[2018-08-15] MEDS: MELATONIN 3 MG TABLET PO SCH (20:03)
--- NOTE | 2018-08-15 20:35 | PN ---
PROGRESS NOTE DATE OF SERVICE: 08/15/2018. REASON FOR FOLLOWUP: Hepatitis C positive serology and a question of acute hepatitis C. INTERVAL HISTORY: The patient is currently afebrile. Patient has been breathing comfortably. Patient denies having any chest pain. No shortness of breath or cough. No abdominal pain. No diarrhea. PHYSICAL EXAMINATION: Blood pressure 126/75 with a pulse of 75, temperature 97.9. He is 99% on room air. General description is an elderly male lying in bed in no distress. RESPIRATORY SYSTEM: Unlabored breathing. Clear to auscultation anteriorly. HEART: S1, S2. Regular rate. ABDOMEN: Soft, no tenderness. LABS: ALT has normalized to 66. Hepatitis B DNA is currently pending. DIAGNOSTIC IMPRESSION AND PLAN: Patient with elevated liver enzymes with that has been B core antibody positive with concern for acute hepatitis. Clinically suspicion is low. Hepatitis B surface antibody has been positive. We are currently waiting for the status B DNA. Antigen positive. No need for antiviral at this point. Continue with supportive care. MMODL / IJN: [id number] /
[2018-08-15] MEDS: HYDROcodone/APAP 5-325MG 1 EACH TAB PO PRN (21:49)
[2018-08-16] MEDS: SODIUM CHLORIDE 0.9% 1,000 ML IV SCH ×2 (00:39→13:15)
[2018-08-16] MEDS: POTASSIUM CHLORIDE ER 20 MEQ TAB.ER PO SCH (08:17)
[2018-08-16] MEDS: METOPROLOL TARTRATE 25 MG TAB PO SCH (08:17)
[2018-08-16] MEDS: MULTIVITAMINS, THERA 1 EACH TAB PO SCH (08:17)
[2018-08-16] MEDS: MAGNESIUM OXIDE 400 MG TAB PO SCH (08:17)
[2018-08-16] MEDS: NICOTINE 14MG/24HR PATCH TRANSDERM SCH (08:18)
[2018-08-16] MEDS: THIAMINE 100 MG TAB PO SCH (08:18)
[2018-08-16] MEDS: ENOXAPARIN 40 MG/0.4 ML SYRINGE SQ SCH (08:18)
--- NOTE | 2018-08-16 09:39 | P.DS ---
Providers Date of admission: 08/09/18 18:12 Expected date of discharge: 08/16/18 Attending physician: Jeremias Posey MD Consults: 08/09/18 21:21 Consult Physician Urgent Consulting Provider: Dominique Rees Consult Reason/Comments: Suicidal ideation Do you want consulting provider notified?: Already Contacted 08/10/18 07:20 Consult Physician Routine Consulting Provider: Sherice Dunham Consult Reason/Comments: etoh wd seizure Do you want consulting provider notified?: Yes 08/11/18 07:45 Consult Physician Routine Consulting Provider: Manolo Leigh Consult Reason/Comments: positve Hep B core Ig M Do you want consulting provider notified?: Yes Primary care physician: Stated None Hospital Course: Discharge Diagnosis: Alcohol abuse with alcohol withdrawal seizure Neurocognitive disorder Transaminitis Acclerated HTN Suicidal ideation ruled out. Hospital Course: Patient is a 73-year-old male with a past medical history of alcohol abuse with multiple falls and suicidal thoughts, with history of colon cancer in 2008 and possible seizure disorder. On presentation to the ER report was admitted by his daughter who brought him to be lethargic with possible seizure activity lasting approximately similarly 1 minute. In the ER he underwent an extensive evaluation. His initial vital signs were within normal limits. Initial laboratory analysis showed low magnesium at 1.2, AST 146, ALT 102. Chest x-ray showed no acute process. CT chest abdomen and pelvis showed numerous thoracic and lumbar compression fractures, thoracic fractures are not different than computed tomography scan of 06/03/18. CT head and cervical spine showed cerebral atrophy, no acute intracranial abnormality, and spondylosis at C5-6, pelvic x-ray shows an old nonunion chip fracture of the left greater trochanter, femur x-ray shows no acute abnormality of the left and right femur, bilateral forearm x-ray showed no acute process. Bilateral humerus x-ray showed no acute abnormality. Bilateral wrist x-rays show a left scaphoid fracture of uncertain age, could be subacute fracture and an old right distal radius fra cture with right wrist deformity. He was admitted for further monitoring. His placed on CIWA protocol. He was seen by neurology who felt that his seizure was related to acute alcohol withdrawal. EEG was done which did not show any seizure activity. They recommended continue CIWA protocol, seizure precautions, and no driving for at least 6 months. He was seen by psychiatry who felt that the patient had severe alcohol use disorder with possible neurocognitive disorder. 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 Apparently in the patient already has a financial power of associate attorney in place and his daughter has been working on gaining guardianship as was suggested February 2018. Currently social work is applying for temporary guardian. He will need a supervised living situation. Psychiatry recommended further assessment of his cognition once he has been off of alcohol for 6-8 weeks. He was found to have positive hepatitis B core antibodies. He was seen by ID and currently hepatitis B DNA is pending, currently no treatment indicated. Despite aggressive magnesium replacement magnesium levels remain low and patient started on oral replacement. He was determined stable for discharge. He will need to follow with Dr. Leigh in 2-4 weeks. If desired formal neuro psych teting could be completed in 6-8 weeks. Patient seen and examined at bedside. No chest pain, SOB, or nausea, having some back pain Vital signs reviewed and stable. General: non toxic, no distress, appears at stated age Derm: warm, dry Head: atraumatic, normocephalic, symmetric Eyes: EOMI, no lid lag, anicteric sclera Mouth: no lip lesion, mucus membranes moist Cardiovascular: S1S2 reg, no murmur, positive posterior tibial pulse bilateral, Lungs: CTA bilateral, no rhonchi, no rales , no accessory muscle use Abdominal: soft, nontender to palpation, no guarding, no appreciable organomegaly Ext: no gross muscle atrophy, no edema, no contractures Neuro: CN II-XI grossly intact, no focal neuro deficits Psych: Alert, oriented, appropriate affect A total of 35 minutes of time were spent preparing this complex discharge summary . Pertinent Studies: Chest x-ray showed no acute process. CT chest abdomen and pelvis showed numerous thoracic and lumbar compression fractures, thoracic fractures are not different than computed tomography scan of 06/03/18. CT head and cervical spine showed cerebral atrophy, no acute intracranial abnormality, and spondylosis at C5-6, pelvic x-ray shows an old nonunion chip fracture of the left greater troch anter, femur x-ray shows no acute abnormality of the left and right femur, bilateral forearm x-ray showed no acute process. Bilateral humerus x-ray showed no acute abnormality. Bilateral wrist x-rays show a left scaphoid fracture of uncertain age, could be subacute fracture and an old right distal radius fracture with right wrist deformity. Patient Condition at Discharge: Good Plan - Discharge Summary Discharge Rx Participant: No New Discharge Prescriptions: No Action Magnesium Oxide 400 mg PO DAILY Potassium Chloride ER [K-Dur 20] 20 meq PO DAILY Cholecalciferol [Vitamin D3 (25 Mcg = 1000 Iu)] 5,000 unit PO DAILY HYDROcodone/APAP 5-325MG [Craig 5-325] 1 tab PO DAILY PRN PRN Reason: Pain Metoprolol Tartrate [Lopressor] 50 mg PO DAILY ALPRAZolam [Xanax] 0.25 mg PO BID Discharge Medication List Magnesium Oxide 400 mg PO DAILY 06/07/18 [History] Potassium Chloride ER [K-Dur 20] 20 meq PO DAILY 06/07/18 [History] ALPRAZolam [Xanax] 0.25 mg PO BID 08/09/18 [History] Cholecalciferol [Vitamin D3 (25 Mcg = 1000 Iu)] 5,000 unit PO DAILY 08/09/18 [History] HYDROcodone/APAP 5-325MG [Craig 5-325] 1 tab PO DAILY PRN 08/09/18 [History] Metoprolol Tartrate [Lopressor] 50 mg PO DAILY 08/09/18 [History] Follow up Appointment(s)/Referral(s): None,Stated [Primary Care Provider] - 1-2 days Manolo Leigh MD [STAFF PHYSICIAN] - 1 Week
[2018-08-16 11:15] VITALS: BMI 28.8
[2018-08-16 11:55] VITALS: BP 127/83; PULSE 60; RESP 17; TEMP 98.3
[2018-08-16 13:08] LABS: Hepatitis B Virus DNA Not detected (Not detected); Hepatitis B Virus DNA, Quant <10 IU/mL (<10); Log HBV IU/mL <1.00 (<1.00)
--- NOTE | 2018-08-16 18:53 | PN ---
PROGRESS NOTE DATE OF SERVICE: 08/16/2018. REASON FOR FOLLOW UP: Hepatitis B core antibody positive, question of acute hepatitis. INTERVAL HISTORY: The patient is currently afebrile. The patient has been breathing comfortably. Denies having any chest pain or any cough. No abdominal pain or any cough. No nausea, vomiting, or any diarrhea. PHYSICAL EXAMINATION: Blood pressure 127/83 with a pulse of 68, temperature 98.3. He is 98% on room air. General description is an elderly male lying in bed in no distress. Respiratory system: Unlabored breathing. Clear to auscultation anteriorly. Heart S1, S2. Regular rate and rhythm. ABDOMEN: Soft, no tenderness. LABS: Hepatitis B, D and A not detected. DIAGNOSTIC IMPRESSION AND PLAN: Patient admitted with Hepatitis B core antibody positive, could be falsely positive as the patient hepatitis B surface antibodies were positive. Hepatitis B DNA is negative. The patient clinically does not have any acute hepatitis. No need for any further workup for the same. ID will sign. Please call back if any questions or concerns regarding infectious disease care. MMODL / IJN: [id number] /
[2018-08-17 13:05] LABS: Hepatitis BE Antibody NEG (Negative); Hepatitis BE Antigen NEG (Negative)
== END 2018-08-16 15:35 | disposition home or self-care (01) | DRG 897 ==
LOC: EC 14:08 → 4MS4W 18:12 → 4SSUR 08-12 17:13 → 3NMEDONC 08-12 19:23
PROVIDERS: ADMIT Family Medicine; ATTEND Family Medicine
DX: F10.232 Alcohol dependence with withdrawal with perceptual disturbance (principal); B19.10 Unspecified viral hepatitis B without hepatic coma; E87.2 Acidosis; G93.49 Other encephalopathy; M48.54XA Collapsed vertebra, not elsewhere classified, thoracic region, initial encounter for fracture; M48.56XA Collapsed vertebra, not elsewhere classified, lumbar region, initial encounter for fracture; Y90.6 Blood alcohol level of 120-199 mg/100 ml; E83.42 Hypomagnesemia; Z71.41 Alcohol abuse counseling and surveillance of alcoholic; Z71.6 Tobacco abuse counseling; F17.210 Nicotine dependence, cigarettes, uncomplicated; F32.9 Major depressive disorder, single episode, unspecified; G40.409 Other generalized epilepsy and epileptic syndromes, not intractable, without status epilepticus; I10 Essential (primary) hypertension; I25.2 Old myocardial infarction; K21.9 Gastro-esophageal reflux disease without esophagitis; K70.10 Alcoholic hepatitis without ascites; K76.0 Fatty (change of) liver, not elsewhere classified; R29.6 Repeated falls; Z87.820 Personal history of traumatic brain injury; Z63.4 Disappearance and death of family member; S62.002A Unspecified fracture of navicular [scaphoid] bone of left wrist, initial encounter for closed fracture; Z79.899 Other long term (current) drug therapy; Z82.49 Family history of ischemic heart disease and other diseases of the circulatory system; Z85.038 Personal history of other malignant neoplasm of large intestine; Z86.010 Personal history of colon polyps; Z90.49 Acquired absence of other specified parts of digestive tract; Z60.2 Problems related to living alone
CPT/HCPCS: 36415; 70450; 71045; 71260; 72125; 72170; 74177; 80053; 80074; 80320; 81003; 82140; 83605; 83735; 83880; 84484; 85025; 85027; 86706; 86707; 87350; 87517; 93005; 95816; 96361; 96372; 96374; 96376; 99285

== ENCOUNTER 2018-10-22 13:08 | Emergency (ER) | payer MEDICARE ==
[2018-10-22 13:17] VITALS: TEMP 98
[2018-10-22] MEDS ORDERED: SODIUM CHLORIDE 0.9% 1,000 ML IV STA (13:43)
[2018-10-22] MEDS ORDERED: LORazepam 2 MG/ML INJ IV STA ×2 (13:44→15:30)
--- NOTE | 2018-10-22 13:51 | ED ---
General Adult HPI - General Chief complaint: Alcohol Stated complaint: Alcohol withdrawl Time Seen by Provider: 10/22/18 13:15 Source: patient, EMS, RN notes reviewed Mode of arrival: EMS Limitations: no limitations - History of Present Illness Initial comments: Patient is a pleasant 73-year-old male presenting to the emergency Department with complaints of alcohol withdrawal. Patient states he stopped drinking 2 days ago. Patient has felt shaky since that time. Patient will not state why he stopped drinking. Patient states he did have some very mild discomfort in his chest around 7 this morning that just lasted a couple of seconds. No discom fort since that time. No dyspnea, nausea, or diaphoresis. - Related Data Home Medications Medication Instructions Recorded Confirmed Magnesium Oxide 400 mg PO DAILY 06/07/18 10/22/18 Potassium Chloride ER [K-Dur 20] 20 meq PO DAILY 06/07/18 10/22/18 Lisinopril [Zestril] 20 mg PO DAILY 10/22/18 10/22/18 Multivitamins, Thera [Multivitamin 1 tab PO DAILY 10/22/18 10/22/18 (formulary)] Previous Rx's Medication Instructions Recorded ALPRAZolam [Xanax] 0.25 mg PO BID PRN 7 Days #14 tab 08/16/18 Allergies Allergy/AdvReac Type Severity Reaction Status Date / Time No Known Allergies Allergy Verified 10/22/18 15:21 Review of Systems ROS Statement: Those systems with pertinent positive or pertinent negative responses have been documented in the HPI. ROS Other: All systems not noted in ROS Statement are negative. Constitutional: Denies: fever Eyes: Denies: eye pain ENT: Denies: ear pain Respiratory: Denies: cough, dyspnea Cardiovascular: Reports: as per HPI Endocrine: Denies: fatigue Gastrointestinal: Denies: abdominal pain Genitourinary: Denies: dysuria Musculoskeletal: Denies: back pain Skin: Denies: rash Neurological: Denies: weakness Past Medical History Past Medical History: Cancer, Chest Pain / Angina, GERD/Reflux Additional Past Medical History / Comment(s): Colon cancer 2009 with surgery, colon polyps, pt denies ever having seizure-old medical record documents possible seizure with hypokalemia, pt states he was a heavy drinker in the past but now a weekend drinker, medical record dated 02/23/18 documents alcohol withdrawl syndrome/chronic encephalopathy/neurocognitive disorder/behavioral disturbance/hypokalemia and hypomagnesemia. History of Any Multi-Drug Resistant Organisms: None Reported Past Surgical History: Orthopedic Surgery Additional Past Surgical History / Comment(s): L leg ORIF with hardware, R arm fracture with hardware, colectomy d/t cancer, colonoscopies, 2013 cardiac cath- mild disease, larygoscopy with polypectomy, vasectomy. Past Anesthesia/Blood Transfusion Reactions: No Reported Reaction Past Psychological History: No Psychological Hx Reported Smoking Status: Current every day smoker Past Alcohol Use History: Daily, Heavy Past Drug Use History: None Reported - Past Family History Father History Unknown: Yes Family Medical History: Coronary Artery Disease (CAD), Myocardial Infarction (GA) Additional Family Medical History / Comment(s): Father of a GA at the age og 52 yrs. Mother Additional Family Medical History / Comment(s): Mother was a smoker/drinker and at the age of 85yrs. General Exam Limitations: no limitations General appearance: alert, in no apparent distress, other (Mild resting tremor) Head exam: Present: atraumatic Eye exam: Present: normal appearance, PERRL ENT exam: Present: normal oropharynx Neck exam: Present: normal inspection Respiratory exam: Present: normal lung sounds bilaterally. Absent: chest wall tenderness Cardiovascular Exam: Present: regular rate, normal rhythm Expanded Peripheral pulses: 2+: Radial (R), Radial (L), Dorsalis Pedis (R), Dorsalis Pedis (L) GI/Abdominal exam: Present: soft. Absent: tenderness Extremities exam: Present: normal inspection. Absent: pedal edema, calf tenderness Neurological exam: Present: alert Psychiatric exam: Present: normal affect, normal mood Skin exam: Present: normal color Course Vital Signs 10/22/18 10/22/18 10/22/18 13:11 13:30 14:00 Temperature 98.0 F Pulse Rate 89 91 98 Respiratory 18 18 20 Rate Blood Pressure 145/89 145/89 174/110 O2 Sat by Pulse 98 98 98 Oximetry 10/22/18 10/22/18 10/22/18 14:30 15:00 15:30 Temperature Pulse Rate 90 87 95 Respiratory 18 20 20 Rate Blood Pressure 169/107 170/99 195/120 O2 Sat by Pulse 99 98 100 Oximetry 10/22/18 16:00 Temperature Pulse Rate 105 H Respiratory 19 Rate Blood Pressure 169/93 O2 Sat by Pulse 98 Oximetry EKG Findings - EKG Comments: EKG Findings:: Sinus rhythm and 91. For screening AV block NE of 212. QRS 96. QT 394. QTC 44. Normal axis. Normal QRS. No acute ST change. Medical Decision Making - Medical Decision Making Patient reevaluated and resting comfortably in bed, symptom-free. Patient blood pressure has improved. Patient family updated on results and need for follow- up. - Lab Data Result diagrams: 10/22/18 14:05 10/22/18 14:05 Lab Results 10/22/18 10/22/18 10/22/18 Range/Units 14:05 14:05 14:05 WBC 7.2 (3.8-10.6) k/uL RBC 3.97 L (4.30-5.90) m/uL Hgb 13.4 (13.0-17.5) gm/dL Hct 39.2 (39.0-53.0) % MCV 98.7 (80.0-100.0) fL MCH 33.8 (25.0-35.0) pg MCHC 34.2 (31.0-37.0) g/dL RDW 12.7 (11.5-15.5) % Plt Count 171 (150-450) k/uL Neutrophils % 82 % Lymphocytes % 9 % Monocytes % 6 % Eosinophils % 1 % Basophils % 1 % Neutrophils # 5.9 (1.3-7.7) k/uL Lymphocytes # 0.7 L (1.0-4.8) k/uL Monocytes # 0.4 (0-1.0) k/uL Eosinophils # 0.1 (0-0.7) k/uL Basophils # 0.1 (0-0.2) k/uL PT 9.8 (9.0-12.0) sec INR 0.9 (<1.2) APTT 25.0 (22.0-30.0) sec Sodium 137 (137-145) mmol/L Potassium 4.2 (3.5-5.1) mmol/L Chloride 101 (98-107) mmol/L Carbon Dioxide 27 (22-30) mmol/L Anion Gap 9 mmol/L BUN 15 (9-20) mg/dL Creatinine 0.48 L (0.66-1.25) mg/dL Est GFR (CKD-EPI)AfAm >90 (>60 ml/min/1.73 sqM) Est GFR (CKD-EPI)NonAf >90 (>60 ml/min/1.73 sqM) Glucose 114 H (74-99) mg/dL Calcium 9.1 (8.4-10.2) mg/dL Magnesium 1.2 L (1.6-2.3) mg/dL Total Bilirubin 1.3 (0.2-1.3) mg/dL AST 52 (17-59) U/L ALT 37 (21-72) U/L Alkaline Phosphatase 99 (38-126) U/L Troponin I (0.000-0.034) ng/mL Total Protein 7.0 (6.3-8.2) g/dL Albumin 4.1 (3.5-5.0) g/dL Serum Alcohol <10 mg/dL 10/22/18 Range/Units 14:05 WBC (3.8-10.6) k/uL RBC (4.30-5.90) m/uL Hgb (13.0-17.5) gm/dL Hct (39.0-53.0) % MCV (80.0-100.0) fL MCH (25.0-35.0) pg MCHC (31.0-37.0) g/dL RDW (11.5-15.5) % Plt Count (150-450) k/uL Neutrophils % % Lymphocytes % % Monocytes % % Eosinophils % % Basophils % % Neutrophils # (1.3-7.7) k/uL Lymphocytes # (1.0-4.8) k/uL Monocytes # (0-1.0) k/uL Eosinophils # (0-0.7) k/uL Basophils # (0-0.2) k/uL PT (9.0-12.0) sec INR (<1.2) APTT (22.0-30.0) sec Sodium (137-145) mmol/L Potassium (3.5-5.1) mmol/L Chloride (98-107) mmol/L Carbon Dioxide (22-30) mmol/L Anion Gap mmol/L BUN (9-20) mg/dL Creatinine (0.66-1.25) mg/dL Est GFR (CKD-EPI)AfAm (>60 ml/min/1.73 sqM) Est GFR (CKD-EPI)NonAf (>60 ml/min/1.73 sqM) Glucose (74-99) mg/dL Calcium (8.4-10.2) mg/dL Magnesium (1.6-2.3) mg/dL Total Bilirubin (0.2-1.3) mg/dL AST (17-59) U/L ALT (21-72) U/L Alkaline Phosphatase (38-126) U/L Troponin I <0.012 (0.000-0.034) ng/mL Total Protein (6.3-8.2) g/dL Albumin (3.5-5.0) g/dL Serum Alcohol mg/dL - Radiology Data Radiology results: image reviewed (Chest x-ray shows stable cardiomegaly) Disposition Clinical Impression: Alcohol withdrawal syndrome Disposition: HOME SELF-CARE Condition: Stable Instructions (If sedation given, give patient instructions): Alcohol Withdrawal (ED) Additional Instructions: Discontinue alcohol use. Use Ativan later tonight or tomorrow if needed. Please follow-up with [facility] or [facility] or other treatment facility. Return for confusion, seizures, chest pain, worsening symptoms or other concerns. Is patient prescribed a controlled substance at d/c from ED?: No Referrals: Shirin Ashton MD [STAFF PHYSICIAN] - 1-2 days Time of Disposition: 17:14
[2018-10-22 14:37] LABS: Basophils # (A) 0.1 k/uL (0-0.2); Basophils % (A) 1 %; Eosinophils # (A) 0.1 k/uL (0-0.7); Eosinophils % (A) 1 %; HCT 39.2 % (39.0-53.0); HGB 13.4 gm/dL (13.0-17.5); Lymphocytes # (A) 0.7 k/uL (1.0-4.8); Lymphocytes % (A) 9 %; MCH 33.8 pg (25.0-35.0); MCHC 34.2 g/dL (31.0-37.0); MCV 98.7 fL (80.0-100.0); Mean Platelet Volume 6.9; Monocytes # (A) 0.4 k/uL (0-1.0); Monocytes % (A) 6 %; Neutrophils # (A) 5.9 k/uL (1.3-7.7); Neutrophils % (A) 82 %; Platelet Count 171 k/uL (150-450); RBC 3.97 m/uL (4.30-5.90); RDW 12.7 % (11.5-15.5); WBC 7.2 k/uL (3.8-10.6)
[2018-10-22 14:47] LABS: INR 0.9 (<1.2); Prothrombin Time 9.8 sec (9.0-12.0)
[2018-10-22 15:00] LABS: ALT 37 U/L (21-72); AST 52 U/L (17-59); African American GFR (CKD) >90 (>60 ml/min/1.73 sqM); Albumin 4.1 g/dL (3.5-5.0); Alcohol <10 mg/dL; Alkaline Phosphatase 99 U/L (38-126); Anion Gap 9 mmol/L; Blood Urea Nitrogen 15 mg/dL (9-20); Calcium 9.1 mg/dL (8.4-10.2); Carbon Dioxide 27 mmol/L (22-30); Chloride 101 mmol/L (98-107); Glucose 114 mg/dL (74-99); Magnesium 1.2 mg/dL (1.6-2.3); Non-African American GFR(CKD) >90 (>60 ml/min/1.73 sqM); Potassium 4.2 mmol/L (3.5-5.1); Sodium 137 mmol/L (137-145); Total Bilirubin 1.3 mg/dL (0.2-1.3)
--- NOTE | 2018-10-22 15:19 | XR ---
EXAMINATION TYPE: XR chest 2V DATE OF EXAM: 10/22/2018 COMPARISON: Prior chest x-ray 08/09/2018 HISTORY: Chest pain TECHNIQUE: Frontal and lateral views of the chest are obtained on 3 images. FINDINGS: There are prominent lung volumes with relative flattening the hemidiaphragms. Aorta is dens e. There are overlying cardiac leads. There is no focal air space opacity, pleural effusion, or pneu mothorax seen. The cardiac silhouette size is stable, enlarged. The osseous structures are intact. IMPRESSION: Stable cardiomegaly.
[2018-10-22] MEDS ORDERED: MAGNESIUM SULFATE-D5W PMX 1 GM in DEXTROSE/WATER 1 100ML.BAG IVPB ONE (15:22)
[2018-10-22] MEDS ORDERED: MAGNESIUM OXIDE 400 MG TAB PO STA (15:22)
[2018-10-22] MEDS ORDERED: LISINOPRIL 5 MG TAB PO STA (15:30)
[2018-10-22] MEDS ORDERED: LISINOPRIL 20 MG TAB PO STA (15:41)
[2018-10-22] MEDS ORDERED: LORazepam 1 MG TAB PO STA (17:12)
[2018-10-22 17:42] VITALS: BP 158/94; PULSE 90; RESP 20
== END 2018-10-22 17:42 | disposition home or self-care (01) ==
LOC: EC 13:08
DX: F10.239 Alcohol dependence with withdrawal, unspecified (principal); R07.89 Other chest pain; F17.200 Nicotine dependence, unspecified, uncomplicated; Z85.038 Personal history of other malignant neoplasm of large intestine; Z79.899 Other long term (current) drug therapy
CPT/HCPCS: 36415; 93005; 80053; 83735; 84484; 85025; 85610; 85730; 71046; 99285; 96365; 96375; 96376; 96361; G0480; J2060; J3475; 80320

== ENCOUNTER 2018-12-21 14:29 | Inpatient (IN) | payer MEDICARE ==
[2018-12-21 17:12] VITALS: BMI 28.5
[2018-12-21 17:39] LABS: Glucose,Whole Blood 93 mg/dL (75-99)
[2018-12-21] MEDS ORDERED: THIAMINE 100 MG TAB PO SCH (17:45)
[2018-12-21] MEDS ORDERED: LORazepam 2 MG/ML INJ IV PRN ×3 (18:12)
[2018-12-21 18:18] LABS: Basophils % (A) 1 %; Eosinophils # (A) 0.1 k/uL (0-0.7); Eosinophils % (A) 1 %; HGB 14.2 gm/dL (13.0-17.5); Lymphocytes % (A) 22 %; MCH 34.6 pg (25.0-35.0); MCHC 34.6 g/dL (31.0-37.0); MCV 100.1 fL (80.0-100.0); Mean Platelet Volume 6.5; Monocytes # (A) 0.5 k/uL (0-1.0); Monocytes % (A) 6 %; Neutrophils # (A) 6.3 k/uL (1.3-7.7); Neutrophils % (A) 70 %; Platelet Count 224 k/uL (150-450); RDW 11.9 % (11.5-15.5); WBC 9.1 k/uL (3.8-10.6)
[2018-12-21 18:19] LABS: ALT 22 U/L (21-72); AST 30 U/L (17-59); African American GFR (CKD) >90 (>60 ml/min/1.73 sqM); Albumin 3.6 g/dL (3.5-5.0); Alkaline Phosphatase 67 U/L (38-126); Anion Gap 4 mmol/L; Bilirubin, Delta 0.2 mg/dL (0.0-0.2); Bilirubin,Unconjugated 0.4 mg/dL (0.0-1.1); Blood Urea Nitrogen 13 mg/dL (9-20); Calcium 8.5 mg/dL (8.4-10.2); Carbon Dioxide 27 mmol/L (22-30); Chloride 106 mmol/L (98-107); Glucose 88 mg/dL (74-99); Magnesium 1.7 mg/dL (1.6-2.3); Potassium 3.8 mmol/L (3.5-5.1); Sodium 137 mmol/L (137-145); Total Bilirubin 0.6 mg/dL (0.2-1.3); Total Protein 6.4 g/dL (6.3-8.2)
[2018-12-21] MEDS: FAMOTIDINE 20 MG TAB PO SCH ×2 (21:40→22:11)
[2018-12-21] MEDS: THIAMINE 100 MG TAB PO SCH ×2 (21:40→22:10)
[2018-12-21] MEDS: MULTIVITAMINS, THERA 1 EACH TAB PO SCH ×2 (21:40→22:11)
[2018-12-21] MEDS: HEPARIN SODIUM,PORCINE 5,000 UNIT/ML 1 ML VIAL SQ SCH (21:41)
[2018-12-21] MEDS: SODIUM CHLORIDE 0.9% 1,000 ML IV SCH (21:41)
[2018-12-21] MEDS: FOLIC ACID 1 MG TAB PO SCH ×2 (21:48→22:10)
[2018-12-22 06:19] LABS: Basophils # (A) 0.1 k/uL (0-0.2); Basophils % (A) 1 %; Eosinophils # (A) 0.1 k/uL (0-0.7); Eosinophils % (A) 1 %; HCT 42.6 % (39.0-53.0); HGB 14.3 gm/dL (13.0-17.5); Lymphocytes % (A) 27 %; MCH 33.6 pg (25.0-35.0); MCHC 33.7 g/dL (31.0-37.0); MCV 99.8 fL (80.0-100.0); Mean Platelet Volume 7.1; Monocytes # (A) 0.5 k/uL (0-1.0); Monocytes % (A) 6 %; Neutrophils # (A) 4.9 k/uL (1.3-7.7); Neutrophils % (A) 64 %; Platelet Count 178 k/uL (150-450); RBC 4.27 m/uL (4.30-5.90); RDW 11.7 % (11.5-15.5); WBC 7.6 k/uL (3.8-10.6)
[2018-12-22 06:25] LABS: INR 0.9 (<1.2); Potassium 3.7 mmol/L (3.5-5.1); Prothrombin Time 10.1 sec (9.0-12.0)
[2018-12-22 06:28] LABS: ALT 24 U/L (21-72); AST 28 U/L (17-59); African American GFR (CKD) >90 (>60 ml/min/1.73 sqM); Albumin 3.7 g/dL (3.5-5.0); Alkaline Phosphatase 69 U/L (38-126); Anion Gap 5 mmol/L; Bilirubin, Delta 0.1 mg/dL (0.0-0.2); Bilirubin,Unconjugated 0.7 mg/dL (0.0-1.1); Blood Urea Nitrogen 10 mg/dL (9-20); Calcium 8.7 mg/dL (8.4-10.2); Carbon Dioxide 26 mmol/L (22-30); Chloride 105 mmol/L (98-107); Glucose 97 mg/dL (74-99); Magnesium 1.6 mg/dL (1.6-2.3); Sodium 136 mmol/L (137-145); Total Bilirubin 0.8 mg/dL (0.2-1.3); Total Protein 6.5 g/dL (6.3-8.2)
[2018-12-22] MEDS: THIAMINE 100 MG TAB PO SCH ×2 (06:55→17:25)
[2018-12-22] MEDS: MULTIVITAMINS, THERA 1 EACH TAB PO SCH (08:50)
[2018-12-22] MEDS: MAGNESIUM OXIDE 400 MG TAB PO SCH (08:50)
[2018-12-22] MEDS: FAMOTIDINE 20 MG TAB PO SCH ×2 (08:50→21:06)
[2018-12-22] MEDS: FOLIC ACID 1 MG TAB PO SCH (08:50)
[2018-12-22] MEDS: HEPARIN SODIUM,PORCINE 5,000 UNIT/ML 1 ML VIAL SQ SCH ×2 (08:51→21:06)
--- NOTE | 2018-12-22 10:23 | P.HPIM ---
History of Present Illness Patient is a pleasant 73-year-old gentleman was transferred from an outside facility for possible seizures. The patient completed denies having a seizure. 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 No loss of bowel or bladder incontinence or tongue biting. Patient denied any chest pain. Daughter also notified the nursing staff that patient had a seizure and route to this hospital in the ambulance. I cannot find any ambulance documentation regarding this. Daughter is not available at this time will discuss with the daughter regarding accuracy of the symptoms. As per the nursing staff patient was not postictal bit tired. Patient had a recent hospitalization of which appears to be about a month ago at the time patient was treated for alcohol withdrawal and at that time patient had seizures ration to denies drinking alcohol since then does smoke 3-4 cigarettes. At this age the possibility having the seizure disorder is extremely low anatomic causes need to be ruled out if he actually has a seizure although seizure history is not clear at this time. We will obtain an EEG neurology was consulted. Patient received 1 dose of Ativan in EMSs and patient didn't have a seizure patient is alert oriented 3 not postictal never had any loss of bowel or bladder continence. Patient denied any headache, aura. Computed tomography scan of the head that did show atrophy possible because of his chronic alcohol use. Patient did have highly elevated lactic acid of 16 with anion gap metabolic acidosis lactic acid here is 0.9 patient clinically doesn't appear to be severely dehydrated has normal creatinine. No evidence of sepsis or infection. Review of Systems REVIEW OF SYSTEMS: CONSTITUTIONAL: No fever, no malaise, no fatigue. HEENT: No recent visual problems or hearing problems. Denied any sore throat. CARDIOVASCULAR: No chest pain, orthopnea, PND, no palpitations, no syncope. PULMONARY: No shortness of breath, no cough, no hemoptysis. GASTROINTESTINAL: No diarrhea, no nausea, no vomiting, no abdominal pain. NEUROLOGICAL: No headaches, no weakness, no numbness. HEMATOLOGICAL: Denies any bleeding or petechiae. GENITOURINARY: Denies any burning micturition, frequency, or urgency. MUSCULOSKELETAL/RHEUMATOLOGICAL: Denies any joint pain, swelling, or any muscle pain. ENDOCRINE: Denies any polyuria or polydipsia. The rest of the 14-point review of systems is negative. Past Medical History Past Medical History: Cancer, Chest Pain / Angina, GERD/Reflux Additional Past Medical History / Comment(s): Colon cancer 2008 with surgery, colon polyps, Pt states he drinks one shot a day, family rports more, medical record dated 02/23/18 documents alcohol withdrawl syndrome/chronic encephalopathy/neurocognitive disorder/behavioral disturbance/hypokalemia and hypomagnesemia. History of Any Multi-Drug Resistant Organisms: None Reported Past Surgical History: Orthopedic Surgery Additional Past Surgical History / Comment(s): L leg ORIF with hardware, R arm fracture with hardware, colectomy d/t cancer, colonoscopies, 2013 cardiac cath- mild disease, larygoscopy with polypectomy, vasectomy. Past Anesthesia/Blood Transfusion Reactions: No Reported Reaction Past Psychological History: No Psychological Hx Reported Additional Psychological History / Comment(s): Pt states his spouse 8 months ago and that he is depressed but not suicidal. He now lives with his grandson and has a dog. His ruperto and grandchild live 4 miles away. He does not drive, his spouse was the trackless trolley driver but he believes he will be able to arrange rides. He has a cane which he uses prn. Smoking Status: Current every day smoker Past Alcohol Use History: Daily, Heavy Additional Past Alcohol Use History / Comment(s): Pt states in the past he was a heavy drinker but states that for the past 4 years he only drinks on the weekend and may occasionally go over 14 drinks over the weekend. He states he last drank 6 weeks ago. Past Drug Use History: None Reported - Past Family History Father History Unknown: Yes Family Medical History: Coronary Artery Disease (CAD), Myocardial Infarction (MT) Additional Family Medical History / Comment(s): Father of a MT at the age o g 52 yrs. Mother Additional Family Medical History / Comment(s): Mother was a smoker/drinker and at the age of 85yrs. Medications and Allergies Home Medications Medication Instructions Recorded Confirmed Type Magnesium Oxide 400 mg PO DAILY 06/07/18 12/21/18 History Potassium Chloride ER [K-Dur 20] 20 meq PO DAILY 06/07/18 12/21/18 History Multivitamins, Thera [Multivitamin 1 tab PO DAILY 10/22/18 12/21/18 History (formulary)] Enalapril Unkown Dose 1 tab PO DAILY 12/21/18 12/21/18 History Levaquin Unknown Dose 1 tab PO DAILY 12/21/18 12/21/18 History Allergies Allergy/AdvReac Type Severity Reaction Status Date / Time No Known Allergies Allergy Verified 12/21/18 17:58 Physical Exam Vitals: Vital Signs Temp Pulse Resp BP Pulse Ox 12/22/18 08:00 98.7 F 86 18 149/94 96 12/22/18 04:00 98.0 F 82 18 138/75 96 12/22/18 00:00 98.5 F 89 17 172/98 96 12/21/18 20:00 98.8 F 97 18 161/92 92 L 12/21/18 17:03 98 F 81 18 148/70 92 L Intake and Output 12/21/18 12/22/18 12/22/18 22:59 06:59 14:59 Intake Total 480 Output Total 850 300 Balance -850 -300 480 Intake: Oral 480 Output: Urine 850 300 Other: Voiding Method Urinal Urinal Urinal # Voids 1 1 Weight 95.5 kg 94.1 kg PHYSICAL EXAMINATION: GENERAL: The patient is alert and oriented x3, not in any acute distress. Well developed, well nourished. HEENT: Pupils are round and equally reacting to light. EOMI. No scleral icterus. No conjunctival pallor. Normocephalic, atraumatic. No pharyngeal erythema. No thyromegaly. CARDIOVASCULAR: S1 and S2 present. No murmurs, rubs, or gallops. PULMONARY: Chest is clear to auscultation, no wheezing or crackles. ABDOMEN: Soft, nontender, nondistended, normoactive bowel sounds. No palpable organomegaly. MUSCULOSKELETAL: No joint swelling or deformity. EXTREMITIES: No cyanosis, clubbing, or pedal edema. NEUROLOGICAL: Gross neurological examination did not reveal any focal deficits. SKIN: No rashes. Results CBC & Chem 7: 12/22/18 05:27 12/22/18 05:27 Labs: Abnormal Lab Results - Last 24 Hours (Table) 12/21/18 12/21/18 12/22/18 Range/Units 17:38 17:38 05:27 RBC 4.10 L 4.27 L (4.30-5.90) m/uL MCV 100.1 H (80.0-100.0) fL Sodium (137-145) mmol/L Creatinine 0.45 L (0.66-1.25) mg/dL 12/22/18 Range/Units 05:27 RBC (4.30-5.90) m/uL MCV (80.0-100.0) fL Sodium 136 L (137-145) mmol/L Creatinine 0.49 L (0.66-1.25) mg/dL Thrombosis Risk Factor Assmnt - Choose All That Apply Each Factor Represents 1 point: Obesity (BMI >25) Each Risk Factor Represents 2 Points: Age 61-74 years Thrombosis Risk Factor Assessment Total Risk Factor Score: 3 Thrombosis Risk Factor Assessment Level: Moderate Risk Assessment and Plan Plan: Possibly of seizures: Doesn't appear to have any all call withdrawal seizures patient last alcohol drink was about a month ago. At this age patient cannot have a seizure disorder because of which are anatomic causes may need to be ruled out will order an EEG earlier addition of MRI to neurology as his seizure history is not clear. -Lactic acidosis can be secondary to seizure. This resolved -Nicotine use: Counseling was provided -Gastroesophageal reflux disease -Hypertension patient will be resumed on his LOVELY inhibitor. Chronic hepatitis B will follow-up as an outpatient and infectious disease DVT prophylaxis early ambulation
--- NOTE | 2018-12-22 11:49 | P.CNNES ---
History of Present Illness Consult date: 12/22/18 Requesting physician: Teresa Enriquez Reason for Consult: Seizures History of Present Illness: Patient is a 73-year-old male, who has history of alcoholism, came to the hospital for 4 witnessed grand mal seizures. 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 He got on the tractor and stood up and lost breath. He felt lightheaded, no spinning. It lasted for 30 seconds. Patient says that he reported it to his family, who got concerned and brought him to the hospital. However when I spoke to patient's daughter, and the nurse, it appears patient had multiple grand mal seizure. Patient's daughter states that he was standing on the tractor, not able to start the tractor. Patient's grandson was there, who noticed that patient has a blank stare. Patient did not know how to operate the tractor. Afterward patient started having a seizure. Patient's grandson and one of his friend laid him down on the floor and called 911. The seizure lasted for 30-45 seconds. About a minute later he had a second seizure lasting for 56 seconds. The third seizure occurred while in the ambulance lasting for 30-40 seconds. The fourth seizure seizure occurred in the [facility], during which she had incontinence of bowels. No tongue bite. He was given 5 mg of Ativan, and patient has not had any seizure since then. Patient states that he has not touched alcohol for last 2 months although he has history of heavy drinking for 30 years. Patient's daughter states that this is complete incorrect statement. Patient still drinks actively. He hides alcohol bottles in the barn, underneath his bed. He has friends who bring him alcohol. He was drinking alcohol on the weekend, and probably did not drink for last 2 days prior to arrival. This probably led to alcohol withdrawal seizure. Patient had a grand mal seizure on 08/10/2018, was seen by Dr. Dunham. EEG did not reveal any epileptiform activity. This seizure was felt to be alcohol related and was not placed on any seizure medication. Patient had computed tomography scan of brain, which revealed improvement in the sinusitis compared to previous exam. No acute process. Chest x-ray showed stable cardiomegaly. Patient has history of tobacco use of one pack per day for 20 years. He started trending back to 4 cigars per day in the last 2 months. This is per patient's statement. Patient denies hypertension although his daughter states that he does have hypertension sometimes does not take his medication. No history of diabetes. Review of Systems Completely unremarkable as per patient. Denies any headache numbness tingling focal weakness. Patient denies any slurred speech facial droop, numbness tingling focal weakness during his "dizzy spell". All other review of systems unremarkable. He does have arthritis. Past Medical History Past Medical History: Cancer, Chest Pain / Angina, GERD/Reflux Additional Past Medical History / Comment(s): Colon cancer 2008 with surgery, colon polyps, Pt states he drinks one shot a day, family rports more, medical record dated 02/23/18 documents alcohol withdrawl syndrome/chronic encephalopathy/neurocognitive disorder/behavioral disturbance/hypokalemia and hypomagnesemia. History of Any Multi-Drug Resistant Organisms: None Reported Past Surgical History: Orthopedic Surgery Additional Past Surgical History / Comment(s): L leg ORIF with hardware, R arm fracture with hardware, colectomy d/t cancer, colonoscopies, 2013 cardiac cath-mild disease, larygoscopy with polypectomy, vasectomy. Past Anesthesia/Blood Transfusion Reactions: No Reported Reaction Past Psychological History: No Psychological Hx Reported Additional Psychological History / Comment(s): Pt states his spouse 8 months ago and that he is depressed but not suicidal. He now lives with his grandson and has a dog. His ruperto and grandchild live 4 miles away. He does not drive, his spouse was the transit bus driver but he believes he will be able to arrange rides. He has a cane which he uses prn. Smoking Status: Current every day smoker Past Alcohol Use History: Daily, Heavy Additional Past Alcohol Use History / Comment(s): Pt states in the past he was a heavy drinker but states that for the past 4 years he only drinks on the weekend and may occasionally go over 14 drinks over the weekend. He states he last drank 6 weeks ago. Past Drug Use History: None Reported - Past Family History Father History Unknown: Yes Family Medical History: Coronary Artery Disease (CAD), Myocardial Infarction (DC) Additional Family Medical History / Comment(s): Father of a DC at the age og 52 yrs. Mother Additional Family Medical History / Comment(s): Mother was a smoker/drinker and at the age of 85yrs. Medications and Allergies Home Medications Medication Instructions Recorded Confirmed Type Magnesium Oxide 400 mg PO DAILY 06/07/18 12/21/18 History Potassium Chloride ER [K-Dur 20] 20 meq PO DAILY 06/07/18 12/21/18 History Multivitamins, Thera [Multivitamin 1 tab PO DAILY 10/22/18 12/21/18 History (formulary)] Enalapril Unkown Dose 1 tab PO DAILY 12/21/18 12/21/18 History Levaquin Unknown Dose 1 tab PO DAILY 12/21/18 12/21/18 History Allergies Allergy/AdvReac Type Severity Reaction Status Date / Time No Known Allergies Allergy Verified 12/21/18 17:58 Physical Examination - Vital Signs Vital Signs: Vital Signs Temp Pulse Resp BP Pulse Ox 12/22/18 08:00 98.7 F 86 18 149/94 96 12/22/18 04:00 98.0 F 82 18 138/75 96 12/22/18 00:00 98.5 F 89 17 172/98 96 12/21/18 20:00 98.8 F 97 18 161/92 92 L 12/21/18 17:03 98 F 81 18 148/70 92 L Intake and Output 12/21/18 12/22/18 12/22/18 22:59 06:59 14:59 Intake Total 480 Output Total 850 300 Balance -850 -300 480 Intake: Oral 480 Output: Urine 850 300 Other: Voiding Method Urinal Urinal Urinal # Voids 1 1 Weight 95.5 kg 94.1 kg On examination patient is an elderly male, in no distress. He is alert and awake fully oriented. Speech and language functions are normal. Attention and concentration fund of knowledge is adequate. On cranial exertion pupils are round and reacting, visual dorantes are full. Face is symmetric and tongue protrudes the midline. Palatal elevation sensation normal. On muscle strength testing there is no pronator drift and the strength is normal in arms and legs distally and proximally. Reflexes are symmetric 1+ and plantars downgoing. No ataxia. Tone and bulk of muscles and gait is normal. There is no carotid bruit or murmur. Peripheral pulses are present. Results Patient's alcohol level was negative today, but his blood alcohol level was elevated 182 on 08/09/2018. MCV is elevated 100.1, consistent with alcoholism. B12 is normal 934, folate 12.4. TSH normal. - Laboratory Findings CBC and BMP: 12/22/18 05:27 12/22/18 05:27 Abnormal Lab Findings: Abnormal Labs 12/21/18 12/21/18 12/22/18 17:38 17:38 05:27 RBC 4.10 L 4.27 L MCV 100.1 H Sodium Creatinine 0.45 L 12/22/18 05:27 RBC MCV Sodium 136 L Creatinine 0.49 L Assessment and Plan Assessment: * Recurrent seizures probably alcohol withdrawal. Patient does have long- standing history of alcoholism, and apparently has not drank alcohol for 2 days prior to arrival, probably leading to withdrawal seizures. Patient had a similar admission for alcohol withdrawal seizure in August 2018. * Hypertension * Tobacco use Plan: * Patient's seizure are probably alcohol withdrawal. We will check EEG to evaluate for any interictal epileptiform activity. * Antiepileptic medications not indicated for alcohol withdrawal seizures. * Patient needs to abstain from alcoholism. * Tobacco cessation. * Continue thiamine, folate and multivitamins. Patient does not appear to be in active withdrawals at this time. Appears calm. * Patient and her daughter informed of [place] state law of no driving unless seizure free for 6 months, operating dangerous machinery, climbing ladders or unsupervised swimming. * Discussed with patient's daughter and DR Schwartz.
--- NOTE | 2018-12-22 15:18 | EEG ---
ELECTROENCEPHALOGRAM REPORT DATE OF SERVICE: 12/22/2018. PREAMBLE: This is a 73-year-old male with history of alcoholism, came with recurrent seizures. This study is performed to evaluate for any epileptiform activity. EEG FINDINGS: This routine 21 channel awake digital EEG recording was accomplished utilizing the 10- 20 international system with bipolar and referential montages. The background consists of slightly disorganized, mixed frequencies of predominantly 9-10 hertz alpha mixed with some low-voltage theta, and some fast frequency activity. There is additional frequent, intermittent bitemporal slowing and polymorphic delta and theta range. Different stages of sleep were not seen. Photic driving response was not seen. No clear-cut epileptiform activity was seen. EKG rhythm lead revealed no obvious arrhythmia. IMPRESSION: This is an abnormal EEG due to the background disorganization, which is nonspecific abnormality, may be related to his mild encephalopathy or medication effect. Intermittent bitemporal slowing suggestive of focal cortical neural dysfunction and may suggest underlying structural abnormality. No definitive epileptiform activity was seen. If your suspicion for seizures is high, consider prolonged/sleep-deprived EEG. MMODL / IJN: [id number] /
--- NOTE | 2018-12-22 15:44 | P.CN ---
Psychiatric Consult - . Consult date: 12/22/18 Consult:: IDENTIFYING DATA: The patient is a 73-year-old male transferred from his primary care provider's office for evaluation of seizure disorder. He has a history of alcohol use problems and the hospitalist consult to psychiatry for evaluation of his alcohol use disorder. HISTORY OF PRESENT ILLNESS: I reviewed the medical record and interviewed the patient. He alleged she was unaware of the reason for this hospitalization. He felt that he was "a bit confused" but his daughters wanted him to meet with his physician. According to his nurse he was transferred from his doctor's office for evaluation of multiple seizures. These included seizure witnessed by family. He minimized his alcohol use. At one point during interview and alleged that he has not had a drink in " a couple months" and another time alleged it was "a couple weeks". He has had multiple presentations to the [facility] since February 2018 for alcohol related issues including alcohol withdrawal, Wernicke encephalopathy, falls with fracture, and alcohol intoxication. He alleged that he "used to" have an alcohol use problem but now feels that his alcohol use is under control. He admitted to feeling depressed and has been more depressed since the of his in April 2018. The record indicates that his alcohol use increased substantially from the of his to the point where his drinking 1 pint of liquor per day. He was also concerned about his grandson who has been arrested or substance use related offenses. He denied feeling hopeless, helpless or worthless. He denied having thoughts of or suicide. He denied other symptoms of depression. He "sometimes" had difficulty with sleep. He denied problems with concentration or attention. He denied change in energy or interests. He denied change in appetite or change in weight. He denied experiencing severe and persistent anxiety that interferes with his ability to function. He denied experiencing such psychotic symptoms as auditory halluci nations, ideas reference, thought insertion etc. PAST PSYCHIATRIC HISTORY: He denied a history of mental health treatment. A national sales consultant psychiatrist, Dr. Rees, evaluated him in August 2018 and diagnosed alcohol use disorder severe, alcohol withdrawal and a possible neurocognitive disorder. PAST MEDICAL HISTORY: According to record his history of colon cancer, angina and GERD.. ALLERGIES: NO KNOWN DRUG ALLERGIES. SUBSTANCE USE HISTORY: He denied use of drugs to get high, help her sleep or changes mood. He has a history of alcohol use problems including [address] substance abuse treatment. The record indicates that he is had 2 DUI convictions and does not have a set key driver's license. He has never attended a residential substance abuse treatment program. FAMILY PSYCHIATRIC/SUBSTANCE USE HISTORY: His grandson has a history of drug use problems. He denied history of psychiatric or mental health problems. SOCIAL HISTORY: His born in [place] and raised in [place]. Both parents are . He has no brothers or sisters. He completed high school and graduated from [employer] with a degree in education administration. He worked in [employer] in the [employer] for 7 years. He retired when he was 52 years old after he was diagnosed and treated for colon cancer. He was twice. The first marriage ended in . He was for to his second for 30 years and had one daughter. He currently lives alone in his own home. He is never in the and denied history of physical, emotional or sexual abuse. MENTAL STATUS EXAM: He presented as a casually groomed elderly male with white hair and castro. He made eye contact and attended the interview. He had no distinguishing features or prominent physical abnormalities. He had a blunted but bright facial expression. He was alert and oriented oriented to person, month but thought the year was "2019". He showed slight psychomotor retardation but no abnormal movements. I did not evaluate his gait. His speech was spontaneous with normal rate, rhythm and volume. He had no articulation difficulties. His affect was blunted but stable and appropriate. He denied suicidal ideation or wishes. He denied homicidal ideation. He denied such depressive cognitions as hopelessness, helplessness or worthlessness. He did not express ideas reference, paranoid ideation, magical ideation or delusional thoughts. His thinking was concrete but his associations were coherent and logical. He did not express clang associations, perseverations or neologisms. He denied hallucinations and did not appear to be responding to internal stimuli. He completed the [facility] Orientation Memory and Concentration Test. His total weighted error score was 12; a total weighted error score greater than 10 is consistent with a dementia. He knew the month but thought the year was 2019. He was able to register memory phrase "Gabriel Sy, [address] [place] [address]". The estimated time correctly within 1 hour. He was able to count backwards 20-1 and name the months of the year in reverse order beginning with January. He did not remember that memory phrase after distraction exercise with the exception of the last name "Yossi". IMPRESSIONS: He is 73-year-old male who has history of alcohol use disorder and probable major neurocognitive disorder. He presented to the Medical Center for evaluation of frequent seizures. He minimizes alcohol use and does not perceive himself as having an alcohol use problem. He continues to grieve the of his with family but doesn't have signs or symptoms consistent with a major depressive disorder. He is in denial of the severity of his alcohol use problems and would not be appropriate for referral to a substance abuse treatment program. He may benefit from outpatient counseling to address this and I'll and will towards acceptance of his problem and need for treatment. DIAGNOSIS: Alcohol use disorder severe, rule out alcohol withdrawal, rule out major neurocognitive disorder PLAN: There is no indication for acute psychiatric treatment at this time. He does not require transfer to inpatient psychiatric unit. Consider referring him for outpatient mental health treatment. He may benefit from neurocognitive testing to evaluate the extent and severity of his cognitive impairment. Thank you for the consult. 12/22/18 10:18 12/22/18 15:38
[2018-12-22] MEDS: SODIUM CHLORIDE 0.9% 1,000 ML IV SCH ×2 (17:25→21:36)
[2018-12-22 23:36] VITALS: RESP 18
[2018-12-23] MEDS: THIAMINE 100 MG TAB PO SCH (06:20)
[2018-12-23 08:08] VITALS: BP 129/83; PULSE 103; TEMP 98.4
[2018-12-23] MEDS: MAGNESIUM OXIDE 400 MG TAB PO SCH (08:21)
[2018-12-23] MEDS: FOLIC ACID 1 MG TAB PO SCH (08:21)
[2018-12-23] MEDS: MULTIVITAMINS, THERA 1 EACH TAB PO SCH (08:21)
[2018-12-23] MEDS: HEPARIN SODIUM,PORCINE 5,000 UNIT/ML 1 ML VIAL SQ SCH (08:21)
[2018-12-23] MEDS: FAMOTIDINE 20 MG TAB PO SCH (08:21)
[2018-12-23] MEDS: SODIUM CHLORIDE 0.9% 1,000 ML IV SCH (11:56)
[2018-12-23] MEDS: ENALAPRIL PO SCH ×2 (11:56→11:59)
--- NOTE | 2018-12-23 12:26 | P.PN ---
Subjective Progress Note Date: 12/23/18 Patient feels fine. Offers no complaints. No further seizures. Patient states that one of his grandson was involved in drugs charges, which make patient very upset and he started drinking. Patient states that he started drinking, and drank heavily on Thursday and , 12/15/2016 and 12/16/2018. Patient does keep on changing his statement about alcoholism. Objective - Vital Signs Vital signs: Vital Signs Temp 98.4 F 12/23/18 08:05 Pulse 103 H 12/23/18 08:05 Resp 18 12/23/18 08:05 BP 129/83 12/23/18 08:05 Pulse Ox 95 12/23/18 08:05 Intake & Output 12/22/18 12/23/18 12/23/18 18:59 06:59 18:59 Intake Total 840 240 Balance 840 240 Weight 90.6 kg Intake: Oral 840 240 Other: Voiding Method Urinal Urinal Urinal # Voids 2 1 - Exam Patient's mental status, speech and language functions are normal. Muscle strength is normal. Gait appears normal. - Labs CBC & Chem 7: 12/22/18 05:27 12/22/18 05:27 Assessment and Plan Assessment: * Recurrent seizures probably alcohol withdrawal. Patient does have long- standing history of alcoholism, and apparently has not drank alcohol for 2 days prior to arrival, probably leading to withdrawal seizures. Patient had a similar admission for alcohol withdrawal seizure in August 2018. * Hypertension * Tobacco use Plan: * Patient's seizure are probably alcohol withdrawal. * Patient's EEG was however abnormal, showing background disorganization, and bitemporal slowing. * Antiepileptic medications not indicated for alcohol withdrawal seizures. As EEG was somewhat abnormal, we will empirically place him on Keppra 500 mg twice a day. Patient should follow-up with a neurologist in 4-6 weeks for a follow-up. If he remains seizure free for some period of time, then may wean him off Keppra as outpatient. * Patient needs to abstain from alcoholism. * Tobacco cessation. * Patient and her daughter informed of [place] state law of no driving unless seizure free for 6 months, operating dangerous machinery, climbing ladders or unsupervised swimming. * Discussed with DR Schwartz.
--- NOTE | 2018-12-23 16:08 | P.DS ---
Providers Date of admission: 12/21/18 17:00 Expected date of discharge: 12/23/18 Attending physician: Christian Carias Consults: 12/21/18 18:20 Consult Physician Routine Consulting Provider: Gabriel Hinton Consult Reason/Comments: Recent Seizure precautions, ETOH withdraw/abuse Do you want consulting provider notified?: Yes, Notify in am 12/22/18 09:34 Consult Physician Routine Consulting Provider: Claudy Leach Consult Reason/Comments: Seizures Do you want consulting provider notified?: Yes Primary care physician: Christian Carias [facility] Course: Final diagnosis -Possible seizures, possibly related to alcohol withdrawal -Lactic acidosis can be secondary to seizure -Nicotine use -Gastroesophageal reflux disease -Hypertension -Chronic hepatitis B -DVT prophylaxis Discharge disposition Patient is being discharged in a stable condition with guarded prognosis to home and will follow up with primary care provider as well as [place] [facility] [place] the [place] setting. Total time taken is 35 minutes. History of present illness This is a 73-year-old male who was transferred from an outside facility for possible seizures. She has no history of seizures and was being closely monitored. Per daughter patient does have an extensive history of drinking and had a recent hospitalization due to alcohol withdrawal and was being treated at that time. Patient was seen by neurology and psychiatry and an EEG was performed. EEG shows abnormal due to background disorganization which is nonspecific abnormality and may be related to mild encephalopathy or medication effect. No definitive epileptiform activity was seen. It was suggested that patient follows up with neurology in the outpatient setting upon discharge. Patient will be started on Keppra 500 mg twice daily and will follow-up with urology upon discharge. Patient also being arranged to speak [place] [facility] [place] in the [place] setting as well. Discussed with the patient about abstaining from any alcohol intake patient agrees with this plan. Currently patient denies any chest pain, shortness of breath, or palpitations. Patient has been afebrile. Patient denies any nausea or vomiting and is tolerating diet. Currently patient's condition is stable and is ready for discharge today. Patient states that he is eager to go home today. Guarded prognosis. On exam vital signs are stable. Temp is 98.4 F, pulse is 103, respirations are 18, blood pressure 129/83, oxygen saturation is 95% on room air. Cardio S1, S2 are present. Respiratory system shows diminished breath sounds at the bases with no wheezing or crackles noted. Abdomen is soft, thin, non-tender. Nervous system shows no focal deficits and gait is steady. Please refer to medication reconciliation sheet for a list of medications. Patient Condition at Discharge: Fair Plan - Discharge Summary New Discharge Prescriptions: New Folic Acid 1 mg PO DAILY 30 Days #30 tab Famotidine [Pepcid] 20 mg PO BID 30 Days #60 tab Thiamine [Vitamin B-1] 100 mg PO BID-W/MEALS 30 Days #60 tab levETIRAcetam [Keppra] 500 mg PO BID 30 Days #60 tab Continue Magnesium Oxide 400 mg PO DAILY Potassium Chloride ER [K-Dur 20] 20 meq PO DAILY Multivitamins, Thera [Multivitamin (formulary)] 1 tab PO DAILY Enalapril Unkown Dose 1 tab PO DAILY Discontinued Levaquin Unknown Dose 1 tab PO DAILY Discharge Medication List Magnesium Oxide 400 mg PO DAILY 06/07/18 [History] Potassium Chloride ER [K-Dur 20] 20 meq PO DAILY 06/07/18 [History] Multivitamins, Thera [Multivitamin (formulary)] 1 tab PO DAILY 10/22/18 [History] Enalapril Unkown Dose 1 tab PO DAILY 12/21/18 [History] Famotidine [Pepcid] 20 mg PO BID 30 Days #60 tab 12/23/18 [Rx] Folic Acid 1 mg PO DAILY 30 Days #30 tab 12/23/18 [Rx] Thiamine [Vitamin B-1] 100 mg PO BID-W/MEALS 30 Days #60 tab 12/23/18 [Rx] levETIRAcetam [Keppra] 500 mg PO BID 30 Days #60 tab 12/23/18 [Rx] Follow up Appointment(s)/Referral(s): [facility] [Outside] ([facility] Manav Marcelo NPC [REFERRING] - 12/30/18 10:00 am Isaias Cortez MD [Medical Doctor] - 2 Weeks (Neurologist- Office will call with follow up appointment. ) Patient Instructions/Handouts: Alcohol Withdrawal (DC), New-Onset Seizure in Adults (DC) Activity/Diet/Wound Care/Special Instructions: Activity Limited until follow-up Continue current diet Follow-up with primary care provider upon discharge Abstain from all alcohol intake Follow-up with community mental health in the outpatient setting No driving until given OK by neurologist. Under [place] law, you must be seizure free for 6 months in order to safely drive again. Discharge Disposition: HOME SELF-CARE
== END 2018-12-23 13:37 | disposition home or self-care (01) | DRG 897 ==
LOC: 3SCARD 17:00
PROVIDERS: ADMIT Internal Medicine; ATTEND Internal Medicine
DX: F10.232 Alcohol dependence with withdrawal with perceptual disturbance (principal); G40.509 Epileptic seizures related to external causes, not intractable, without status epilepticus; E87.2 Acidosis; B18.1 Chronic viral hepatitis B without delta-agent; G93.40 Encephalopathy, unspecified; I11.9 Hypertensive heart disease without heart failure; R15.9 Full incontinence of feces; F10.27 Alcohol dependence with alcohol-induced persisting dementia; F32.9 Major depressive disorder, single episode, unspecified; R32 Unspecified urinary incontinence; K21.9 Gastro-esophageal reflux disease without esophagitis; F17.210 Nicotine dependence, cigarettes, uncomplicated; F17.290 Nicotine dependence, other tobacco product, uncomplicated; Z71.6 Tobacco abuse counseling; Z71.41 Alcohol abuse counseling and surveillance of alcoholic; Z79.899 Other long term (current) drug therapy; Z85.038 Personal history of other malignant neoplasm of large intestine; Z90.49 Acquired absence of other specified parts of digestive tract; Z86.010 Personal history of colon polyps; Z87.81 Personal history of (healed) traumatic fracture; Z98.890 Other specified postprocedural states; Z98.52 Vasectomy status; Z82.49 Family history of ischemic heart disease and other diseases of the circulatory system; Z81.2 Family history of tobacco abuse and dependence; Z81.1 Family history of alcohol abuse and dependence
CPT/HCPCS: 80048; 80076; 83605; 83735; 85025; 85610; 95816

== ENCOUNTER 2019-04-04 11:06 | Inpatient (IN) | payer MEDICARE ==
[2019-04-04] MEDS ORDERED: SODIUM CHLORIDE 0.9% 1,000 ML with MVI, ADULT NO.4 WITH VIT K 10 ML, THIAMINE 100 MG, F... IV ONE ×4 (11:37)
[2019-04-04] MEDS ORDERED: MORPHINE SULFATE 2 MG/ML SYRINGE IVP ONE (11:40)
[2019-04-04] MEDS ORDERED: IBUPROFEN 600 MG TAB PO STA (11:40)
[2019-04-04] MEDS ORDERED: ACETAMINOPHEN TAB 500 MG TAB PO STA (11:40)
--- NOTE | 2019-04-04 12:06 | ED ---
General Adult HPI - General Chief complaint: Recheck/Abnormal Lab/Rx Stated complaint: fx lt arm, detoxing from ETOH Time Seen by Provider: 04/04/19 11:19 Source: patient, family, RN notes reviewed, old records reviewed Mode of arrival: wheelchair Limitations: no limitations - History of Present Illness Initial comments: This patient's a 74-year-old male who presents the emergency department today with chief complaint of concern for DVTs on-call withdrawal. Also complains of pain in the left hand he was diagnosed with a left wrist fracture after a fall. Patient was drinking over the weekend when he fell. He was initially evaluated at the hospital. He does have an upcoming appointment with Dr. Weeks this week. Patient's daughter is concerned because he last drink yesterday and drinks about a half of a fifth a day of liquor. Patient reports that she was unable to take care of him while trying to stop drinking and is concerned for im pending DTs. Patient was reportedly very shaky for the past day. - Related Data Home Medications Medication Instructions Recorded Confirmed Magnesium Oxide 400 mg PO DAILY 06/07/18 12/21/18 Potassium Chloride ER [K-Dur 20] 20 meq PO DAILY 06/07/18 12/21/18 Multivitamins, Thera [Multivitamin 1 tab PO DAILY 10/22/18 12/21/18 (formulary)] Enalapril Unkown Dose 1 tab PO DAILY 12/21/18 12/21/18 Previous Rx's Medication Instructions Recorded Famotidine [Pepcid] 20 mg PO BID 30 Days #60 tab 12/23/18 Folic Acid 1 mg PO DAILY 30 Days #30 tab 12/23/18 Thiamine [Vitamin B-1] 100 mg PO BID-W/MEALS 30 Days #60 12/23/18 tab levETIRAcetam [Keppra] 500 mg PO BID 30 Days #60 tab 12/23/18 Allergies Allergy/AdvReac Type Severity Reaction Status Date / Time No Known Allergies Allergy Verified 04/04/19 11:09 Review of Systems ROS Statement: Those systems with pertinent positive or pertinent negative responses have been documented in the HPI. ROS Other: All systems not noted in ROS Statement are negative. Past Medical History Past Medical History: Cancer, Chest Pain / Angina, GERD/Reflux Additional Past Medical History / Comment(s): Colon cancer 2008 with surgery, colon polyps, Pt states he drinks one shot a day, family rports more, medical record dated 02/23/18 documents alcohol withdrawl syndrome/chronic encephalopathy/neurocognitive disorder/behavioral disturbance/hypokalemia and hypomagnesemia. History of Any Multi-Drug Resistant Organisms: None Reported Past Surgical History: Orthopedic Surgery Additional Past Surgical History / Comment(s): L leg ORIF with hardware, R arm fracture with hardware, colectomy d/t cancer, colonoscopies, 2013 cardiac cath-mild disease, larygoscopy with polypectomy, vasectomy. Past Anesthesia/Blood Transfusion Reactions: No Reported Reaction Past Psychological History: No Psychological Hx Reported Smoking Status: Current every day smoker Past Alcohol Use History: Daily, Heavy Past Drug Use History: None Reported - Past Family History Father History Unknown: Yes Family Medical History: Coronary Artery Disease (CAD), Myocardial Infarction (RI) Additional Family Medical History / Comment(s): Father of a RI at the age og 52 yrs. Mother Additional Family Medical History / Comment(s): Mother was a smoker/drinker and at the age of 85yrs. General Exam - General Exam Comments Initial Comments: 74-year-old male. Alert and oriented 3. Patient presents in significant distress. Limitations: no limitations General appearance: alert, in no apparent distress Head exam: Present: atraumatic, normocephalic, normal inspection Eye exam: Present: normal appearance, PERRL, EOMI. Absent: scleral icterus, conjunctival injection, periorbital swelling ENT exam: Present: normal exam, mucous membranes moist Neck exam: Present: normal inspection. Absent: tenderness, meningismus, lymphadenopathy Respiratory exam: Present: normal lung sounds bilaterally. Absent: respiratory distress, wheezes, rales, rhonchi, stridor Cardiovascular Exam: Present: regular rate, normal rhythm, normal heart sounds. Absent: systolic murmur, diastolic murmur, rubs, gallop, clicks GI/Abdominal exam: Present: soft, normal bowel sounds. Absent: distended, tenderness, guarding, rebound, rigid Extremities exam: Present: normal inspection, full ROM, normal capillary refill, other ( and had a sugar tong cast over the left wrist and arm. This was tight, Patient reported diminished sensation into the fingertips.). Absent: tenderness, pedal edema, joint swelling, calf tenderness Back exam: Present: normal inspection Neurological exam: Present: alert, oriented X3, CN II-XII intact Psychiatric exam: Present: normal affect, normal mood Skin exam: Present: warm, dry, intact, normal color. Absent: rash Course Vital Signs 04/04/19 04/04/19 04/04/19 11:09 11:54 13:31 Temperature 100.4 F H 99 F Pulse Rate 112 H 100 100 Respiratory 18 18 18 Rate Blood Pressure 145/97 172/109 147/105 O2 Sat by Pulse 95 96 96 Oximetry Medical Decision Making - Medical Decision Making 34-year-old male presented today for eval for concern for impending DTs. He also reports he fell while intoxicated. He'll causing left wrist fracture. He was concerned because the splint seemed to tight. His daughter is concerned that he was very shaky. He last drink yesterday. Labs reviewed. Patient does have low magnesium level. Patient did have his platelet removed and he does report much improvement of the pain within the hand and normal sensation has returned. I did re-splint the Patient with a sugar tong splint. I discussed this with Dr. Meyer. Discussed admission for hypo-magnesia, and pending DTs. All questions answered return parameters were discussed. - Lab Data Result diagrams: 04/04/19 12:09 04/04/19 12:09 Lab Results 04/04/19 04/04/19 04/04/19 Range/Units 11:45 11:50 12:09 WBC 8.3 (3.8-10.6) k/uL RBC 4.67 (4.30-5.90) m/uL Hgb 15.8 (13.0-17.5) gm/dL Hct 46.4 (39.0-53.0) % MCV 99.5 (80.0-100.0) fL MCH 33.9 (25.0-35.0) pg MCHC 34.1 (31.0-37.0) g/dL RDW 12.5 (11.5-15.5) % Plt Count 167 (150-450) k/uL Neutrophils % 81 % Lymphocytes % 12 % Monocytes % 3 % Eosinophils % 2 % Basophils % 0 % Neutrophils # 6.7 (1.3-7.7) k/uL Lymphocytes # 1.0 (1.0-4.8) k/uL Monocytes # 0.3 (0-1.0) k/uL Eosinophils # 0.1 (0-0.7) k/uL Basophils # 0.0 (0-0.2) k/uL PT (9.0-12.0) sec INR (<1.2) APTT (22.0-30.0) sec Sodium (137-145) mmol/L Potassium (3.5-5.1) mmol/L Chloride (98-107) mmol/L Carbon Dioxide (22-30) mmol/L Anion Gap mmol/L BUN (9-20) mg/dL Creatinine (0.66-1.25) mg/dL Est GFR (CKD-EPI)AfAm (>60 ml/min/1.73 sqM) Est GFR (CKD-EPI)NonAf (>60 ml/min/1.73 sqM) Glucose (74-99) mg/dL Plasma Lactic Acid John (0.7-2.0) mmol/L Calcium (8.4-10.2) mg/dL Magnesium (1.6-2.3) mg/dL Total Bilirubin (0.2-1.3) mg/dL AST (17-59) U/L ALT (4-49) U/L Alkaline Phosphatase (38-126) U/L Total Protein (6.3-8.2) g/dL Albumin (3.5-5.0) g/dL Amylase (30-110) U/L Lipase (23-300) U/L Urine Color Yellow Urine Appearance Cloudy (Clear) Urine pH 6.0 (5.0-8.0) Ur Specific [place] 1.026 (1.001-1.035) Urine Protein 1+ H (Negative) Urine Glucose (UA) Negative (Negative) Urine Ketones 2+ H (Negative) Urine Blood Negative (Negative) Urine Nitrite Negative (Negative) Urine Bilirubin 1+ H (Negative) Urine Urobilinogen 4.0 (<2.0) mg/dL Ur Leukocyte Esterase Negative (Negative) Urine WBC 6 H (0-5) /hpf Ur Squamous Epith Cells <1 (0-4) /hpf Calcium Oxalate Crystal Many H (None) /hpf Urine Bacteria Rare H (None) /hpf Hyaline Casts 4 H (0-2) /lpf Urine Mucus Many H (None) /hpf Serum Alcohol mg/dL Influenza Type A RNA Not Detected (Not Detectd) Influenza Type B (PCR) Not Detected (Not Detectd) 04/04/19 04/04/19 04/04/19 Range/Units 12:09 12:09 12:09 WBC (3.8-10.6) k/uL RBC (4.30-5.90) m/uL Hgb (13.0-17.5) gm/dL Hct (39.0-53.0) % MCV (80.0-100.0) fL MCH (25.0-35.0) pg MCHC (31.0-37.0) g/dL RDW (11.5-15.5) % Plt Count (150-450) k/uL Neutrophils % % Lymphocytes % % Monocytes % % Eosinophils % % Basophils % % Neutrophils # (1.3-7.7) k/uL Lymphocytes # (1.0-4.8) k/uL Monocytes # (0-1.0) k/uL Eosinophils # (0-0.7) k/uL Basophils # (0-0.2) k/uL PT 9.7 (9.0-12.0) sec INR 0.9 (<1.2) APTT 23.7 (22.0-30.0) sec Sodium 137 (137-145) mmol/L Potassium 4.1 (3.5-5.1) mmol/L Chloride 97 L (98-107) mmol/L Carbon Dioxide 27 (22-30) mmol/L Anion Gap 13 mmol/L BUN 19 (9-20) mg/dL Creatinine 0.61 L (0.66-1.25) mg/dL Est GFR (CKD-EPI)AfAm >90 (>60 ml/min/1.73 sqM) Est GFR (CKD-EPI)NonAf >90 (>60 ml/min/1.73 sqM) Glucose 100 H (74-99) mg/dL Plasma Lactic Acid John 1.4 (0.7-2.0) mmol/L Calcium 9.3 (8.4-10.2) mg/dL Magnesium 1.2 L (1.6-2.3) mg/dL Total Bilirubin 1.7 H (0.2-1.3) mg/dL AST 144 H (17-59) U/L ALT 46 (4-49) U/L Alkaline Phosphatase 125 (38-126) U/L Total Protein 7.6 (6.3-8.2) g/dL Albumin 4.5 (3.5-5.0) g/dL Amylase 38 (30-110) U/L Lipase 120 (23-300) U/L Urine Color Urine Appearance (Clear) Urine pH (5.0-8.0) Ur Specific [place] (1.001-1.035) Urine Protein (Negative) Urine Glucose (UA) (Negative) Urine Ketones (Negative) Urine Blood (Negative) Urine Nitrite (Negative) Urine Bilirubin (Negative) Urine Urobilinogen (<2.0) mg/dL Ur Leukocyte Esterase (Negative) Urine WBC (0-5) /hpf Ur Squamous Epith Cells (0-4) /hpf Calcium Oxalate Crystal (None) /hpf Urine Bacteria (None) /hpf Hyaline Casts (0-2) /lpf Urine Mucus (None) /hpf Serum Alcohol <10 mg/dL Influenza Type A RNA (Not Detectd) Influenza Type B (PCR) (Not Detectd) 04/04/19 13:58 EKG performed at 1145 shows sinus tachycardia otherwise normal EKG. Ventricular rate of 102 beats per minute. Intervals 192 ms. QS ration is 370/42 ms. No evidence of ST elevation or T- wave inversions. - Radiology Data Radiology results: report reviewed Chest x-ray shows no acute crit primary process. Aortic aneurysm. Mild underlying emphysema. Wrist x-ray shows correlate for distal radial ventricular fracture. Scaphoid wrist fracture. Chronic. Disposition Clinical Impression: Frequent falls, Alcohol abuse, Hypomagnesemia, Wrist fracture Disposition: ADMITTED IP TO THIS HOSP Condition: Stable Is patient prescribed a controlled substance at d/c from ED?: No Referrals: None,Stated [Primary Care Provider] - 1-2 days Time of Disposition: 14:00
[2019-04-04] MEDS ORDERED: THIAMINE 100 MG/ML 2 ML VIAL IM STA (12:07)
[2019-04-04] MEDS ORDERED: LORazepam 2 MG/ML INJ IV PRN ×2 (12:07)
[2019-04-04 12:21] LABS: Basophils % (A) 0 %; Eosinophils # (A) 0.1 k/uL (0-0.7); Eosinophils % (A) 2 %; HCT 46.4 % (39.0-53.0); HGB 15.8 gm/dL (13.0-17.5); Lymphocytes % (A) 12 %; MCH 33.9 pg (25.0-35.0); MCHC 34.1 g/dL (31.0-37.0); MCV 99.5 fL (80.0-100.0); Mean Platelet Volume 7.9; Monocytes # (A) 0.3 k/uL (0-1.0); Monocytes % (A) 3 %; Neutrophils # (A) 6.7 k/uL (1.3-7.7); Neutrophils % (A) 81 %; Platelet Count 167 k/uL (150-450); RBC 4.67 m/uL (4.30-5.90); RDW 12.5 % (11.5-15.5); WBC 8.3 k/uL (3.8-10.6)
[2019-04-04 12:29] LABS: Appearance,Urine Cloudy (Clear); Bacteria,Urine Rare /hpf; Bilirubin,Urine 1+ (Negative); Blood,Urine Negative (Negative); Calcium Oxalate Crystals,Urine Many /hpf; Color,Urine Yellow; Glucose,Urine (UA) Negative (Negative); Hyaline Casts,Urine 4 /lpf (0-2); Ketones,Urine 2+ (Negative); Leukocyte Esterase,Urine Negative (Negative); Mucus,Urine Many /hpf; Nitrite,Urine Negative (Negative); Protein,Urine 1+ (Negative); Specific Gravity,Urine 1.026 (1.001-1.035); Squamous Epithelial Cell,Urine <1 /hpf (0-4); WBC,Urine 6 /hpf (0-5)
[2019-04-04 12:34] LABS: ALT 46 U/L (4-49); AST 144 U/L (17-59); African American GFR (CKD) >90 (>60 ml/min/1.73 sqM); Albumin 4.5 g/dL (3.5-5.0); Alcohol <10 mg/dL; Alkaline Phosphatase 125 U/L (38-126); Amylase 38 U/L (30-110); Anion Gap 13 mmol/L; Blood Urea Nitrogen 19 mg/dL (9-20); Calcium 9.3 mg/dL (8.4-10.2); Carbon Dioxide 27 mmol/L (22-30); Chloride 97 mmol/L (98-107); Glucose 100 mg/dL (74-99); Magnesium 1.2 mg/dL (1.6-2.3); Non-African American GFR(CKD) >90 (>60 ml/min/1.73 sqM); Potassium 4.1 mmol/L (3.5-5.1); Sodium 137 mmol/L (137-145); Total Bilirubin 1.7 mg/dL (0.2-1.3); Total Protein 7.6 g/dL (6.3-8.2)
[2019-04-04 12:35] LABS: INR 0.9 (<1.2); Partial Thromboplastin Time 23.7 sec (22.0-30.0); Prothrombin Time 9.7 sec (9.0-12.0)
[2019-04-04] MEDS: SODIUM CHLORIDE 0.9% 500 ML 500 ML IV SCH ×4 (12:50→16:18)
--- NOTE | 2019-04-04 12:57 | XR ---
EXAMINATION TYPE: XR chest 2V DATE OF EXAM: 04/04/2019 COMPARISON: Prior chest x-ray 10/22/2018, chest CT 08/09/2018 HISTORY: Fever, trauma 3 days prior, nausea TECHNIQUE: Frontal and lateral views of the chest are obtained. FINDINGS: There is no focal air space opacity, pleural effusion, or pneumothorax seen. The cardiac silhouette size is within normal limits. The osseous structures are intact. Aorta is dense and ecta tic, tortuous, there are overlying cardiac leads. There is eventration of the right hemidiaphragm. Pr ominent lung volumes with flattening the hemidiaphragms consistent with COPD. IMPRESSION: No acute cardiopulmonary process. Aortic aneurysm. There is mild underlying emphysema.
--- NOTE | 2019-04-04 13:00 | XR ---
Left forearm HISTORY: Trauma 3 days prior, pain and swelling and bruising 3 views of the left forearm Bone mineralization is reduced. There is an irregular appearance to the distal left radius, cortical step off is developed in the interval. Scaphoid waist fracture appears chronic and is displaced. No d islocation. Arthropathy noted in the wrist. There is soft tissue swelling. IMPRESSION: Correlate for distal radial intra-articular fracture. Scaphoid waist fracture appears chr onic.
[2019-04-04] MEDS ORDERED: HYDROmorphone 1 MG/ML 1 ML SYRINGE IVP STA (13:34)
[2019-04-04] MEDS ORDERED: ONDANSETRON 4 MG/2 ML VIAL IVP PRN (14:02)
[2019-04-04] MEDS ORDERED: ACETAMINOPHEN TAB 325 MG TAB PO PRN (14:02)
[2019-04-04] MEDS ORDERED: NALOXONE 0.4 MG/ML 1 ML VIAL IV PRN (14:02)
[2019-04-04] MEDS ORDERED: HYDROmorphone 0.5 MG/0.5 ML SYRINGE IVP PRN (14:02)
[2019-04-04] MEDS ORDERED: HYDROmorphone 1 MG/ML 1 ML SYRINGE IVP PRN (14:02)
[2019-04-04] MEDS ORDERED: IBUPROFEN 400 MG TAB PO PRN (14:02)
[2019-04-04] MEDS: MAGNESIUM SULFATE-D5W PMX 1 GM in DEXTROSE/WATER 1 100ML.BAG IVPB SCH ×2 (14:13→15:24)
[2019-04-04] MEDS ORDERED: AMPICILLIN-SULBACTAM 3 GM in SODIUM CHLORIDE 0.9% 100 ML IVPB SCH (16:04)
--- NOTE | 2019-04-04 16:14 | P.HPIM ---
History of Present Illness This is a pleasant 74 years old male with past medical history of gastroesophageal reflux disease, alcohol abuse, depression cigarette smoker, pt fell about 3-4 days ago , he went to a different hospital where full cast is applied to his left wrist for fracture, he was not sure what happened that day he fell but he was drinking heavily. he complains from pain at his fracture site, also has some diarrhea and feel tired he comes for concerns of delirium tremens and because his daughter could not take care of him On admission he had a fever of 100.4, heart rate 112, blood press. Serum alcohol is less than 10, influenza is negative. ure 147/105, saturating 96% room air. CBC is unremarkable with no leukocytosis, INR is within normal limits, alk phos normal, creatinine normal at 0.6, liver enzymes slightly elevated with AST 144, ALT is normal at 46, magnesium 1.2, bilirubin is 1.7. Chest x-ray: No acute process, aortic aneurysm, emphysema, urinalysis is suspicious of infection. Left forearm x-ray showing distal radial intra-articular fracture, left scaphoid waist fracture appears chronic. Review of Systems CONSTITUTIONAL: No fever, no malaise, no fatigue. HEENT: No recent visual problems or hearing problems. Denied any sore throat. CARDIOVASCULAR: No orthopnea, PND, no palpitations, no syncope. PULMONARY: No shortness of breath, no cough, no hemoptysis. GASTROINTESTINAL: No diarrhea, no nausea, no vomiting, no abdominal pain. Normoactive bowel sounds. NEUROLOGICAL: No headaches, no weakness, no numbness. HEMATOLOGICAL: Denies any bleeding or petechiae. GENITOURINARY: Denies any burning micturition, frequency, or urgency. MUSCULOSKELETAL/RHEUMATOLOGICAL: Denies any joint pain, swelling, or any muscle pain. ENDOCRINE: Denies any polyuria or polydipsia. Past Medical History Past Medical History: Cancer, Chest Pain / Angina, GERD/Reflux Additional Past Medical History / Comment(s): Colon cancer 2008 with surgery, colon polyps, Pt states he drinks one shot a day, family rports more, medical record dated 02/23/18 documents alcohol withdrawl syndrome/chronic encephalopathy/neurocognitive disorder/behavioral disturbance/hypokalemia and hypomagnesemia. History of Any Multi-Drug Resistant Organisms: None Reported Past Surgical History: Orthopedic Surgery Additional Past Surgical History / Comment(s): L leg ORIF with hardware, R arm fracture with hardware, colectomy d/t cancer, colonoscopies, 2013 cardiac cath- mild disease, larygoscopy with polypectomy, vasectomy. Past Anesthesia/Blood Transfusion Reactions: No Reported Reaction Past Psychological History: No Psychological Hx Reported Smoking Status: Current every day smoker Past Alcohol Use History: Daily, Heavy Past Drug Use History: None Reported - Past Family History Father History Unknown: Yes Family Medical History: Coronary Artery Disease (CAD), Myocardial Infarction (AR) Additional Family Medical History / Comment(s): Father of a AR at the age og 52 yrs. Mother Additional Family Medical History / Comment(s): Mother was a smoker/drinker and at the age of 85yrs. Medications and Allergies Home Medications Medication Instructions Recorded Confirmed Type Potassium Chloride ER [K-Dur 20] 20 meq PO DAILY 06/07/18 04/04/19 History Multivitamins, Thera [Multivitamin 1 tab PO DAILY 10/22/18 04/04/19 History (formulary)] Famotidine [Pepcid] 20 mg PO BID 30 Days #60 tab 12/23/18 04/04/19 Rx Folic Acid 1 mg PO DAILY 30 Days #30 tab 12/23/18 04/04/19 Rx Thiamine [Vitamin B-1] 100 mg PO BID-W/MEALS 30 Days #60 12/23/18 04/04/19 Rx tab levETIRAcetam [Keppra] 500 mg PO BID 30 Days #60 tab 12/23/18 04/04/19 Rx Magnesium 200 mg PO DAILY 04/04/19 04/04/19 History Allergies Allergy/AdvReac Type Severity Reaction Status Date / Time No Known Allergies Allergy Verified 04/04/19 14:23 Physical Exam Vitals: Vital Signs Temp Pulse Resp BP Pulse Ox 04/04/19 13:31 99 F 100 18 147/105 96 04/04/19 11:54 100 18 172/109 96 04/04/19 11:09 100.4 F H 112 H 18 145/97 95 Intake and Output 04/03/19 04/04/19 04/04/19 22:59 06:59 14:59 Other: Weight 88.451 kg GENERAL: The patient is alert and oriented x3, not in any acute distress. Well developed, well nourished. HEENT: Pupils are round and equally reacting to light. EOMI. No scleral icterus. No conjunctival pallor. Normocephalic, atraumatic. No pharyngeal erythema. No thyromegaly. CARDIOVASCULAR: S1 and S2 present. No murmurs, rubs, or gallops. PULMONARY: Chest is clear to auscultation, no wheezing or crackles. ABDOMEN: Soft, nontender, nondistended, normoactive bowel sounds. No palpable organomegaly. MUSCULOSKELETAL: No joint swelling or deformity. -EXTREMITIES: No cyanosis, clubbing, or pedal edema. left forarm in full cast, he can move and feel fingers NEUROLOGICAL: Gross neurological examination did not reveal any focal deficits. SKIN: No rashes. No petechiae Results CBC & Chem 7: 04/04/19 12:09 04/04/19 12:09 Labs: Abnormal Lab Results - Last 24 Hours (Table) 04/04/19 04/04/19 Range/Units 11:50 12:09 Chloride 97 L (98-107) mmol/L Creatinine 0.61 L (0.66-1.25) mg/dL Glucose 100 H (74-99) mg/dL Magnesium 1.2 L (1.6-2.3) mg/dL Total Bilirubin 1.7 H (0.2-1.3) mg/dL AST 144 H (17-59) U/L Urine Protein 1+ H (Negative) Urine Ketones 2+ H (Negative) Urine Bilirubin 1+ H (Negative) Urine WBC 6 H (0-5) /hpf Calcium Oxalate Crystal Many H (None) /hpf Urine Bacteria Rare H (None) /hpf Hyaline Casts 4 H (0-2) /lpf Urine Mucus Many H (None) /hpf Assessment and Plan Assessment: Alcohol use disorder at-risk of alcohol withdrawal Left distal radial intra-articular fracture. 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 Possible UTI versus other Elevated liver enzymes, mostly alcoholic liver disease Gastroesophageal reflux disease Nicotine dependence Hypomagnesemia Plan: This is a pleasant 74 years old male who presents with alcohol withdrawal, left radial fracture and possible infection. Continue with CIWA protocol, continue with vitamins, called psychiatric, call orthopedic consult, check pro-sonia citonin, start him on antibiotics and follow-up culture results. Labs and medication were reviewed.. Continue same treatment. Continue with symptomatic treatment. Resume home medication. Monitor lytes and vitals. DVT and GI prophylaxis. Further recommendations of the clinical course of the p atient DVT prophylaxis: Subcutaneous heparin GI Prophylaxis: Pepcid PT/OT: Pending Prognosis is guarded
[2019-04-04] MEDS: LORazepam 2 MG/ML INJ IV PRN ×2 (17:36→20:08)
[2019-04-04] MEDS: THIAMINE 100 MG TAB PO SCH (18:03)
[2019-04-04] MEDS: AMPICILLIN-SULBACTAM 3 GM in SODIUM CHLORIDE 0.9% 100 ML IVPB SCH (18:03)
[2019-04-04] MEDS: SODIUM CHLORIDE 0.9% 1,000 ML IV SCH (18:47)
[2019-04-04] MEDS: HEPARIN SODIUM,PORCINE 5,000 UNIT/ML 1 ML VIAL SQ SCH (20:08)
[2019-04-04] MEDS: FAMOTIDINE 20 MG/2 ML VIAL IV SCH (20:08)
[2019-04-05] MEDS: AMPICILLIN-SULBACTAM 3 GM in SODIUM CHLORIDE 0.9% 100 ML IVPB SCH ×5 (00:43→22:55)
--- NOTE | 2019-04-05 07:22 | P.PN ---
Subjective This is a pleasant 74 years old male with past medical history of gastroesophageal reflux disease, alcohol abuse, depression cigarette smoker, pt fell about 3-4 days ago , he went to a different hospital where full cast is applied to his left wrist for fracture, he was not sure what happened that day he fell but he was drinking heavily. he complains from pain at his fracture site, also has some diarrhea and feel tired he comes for concerns of delirium tremens and because his daughter could not take care of him On admission he had a fever of 100.4, heart rate 112, blood press. Serum alcohol is less than 10, influenza is negative. ure 147/105, saturating 96% room air. CBC is unremarkable with no leukocytosis, INR is within normal limit s, alk phos normal, creatinine normal at 0.6, liver enzymes slightly elevated with AST 144, ALT is normal at 46, magnesium 1.2, bilirubin is 1.7. Chest x- ray: No acute process, aortic aneurysm, emphysema, urinalysis is suspicious of infection. Left forearm x-ray showing distal radial intra-articular fracture, left scaphoid waist fracture appears chronic. 04/05/2019 Patient is more awake and alert today, however patient states last drink was 2 days ago and yesterday he was sleepy because he didn't have good sleep. Patient only he wants to quit alcohol. Not complaining of much pain in his left wrist area where there is cast up to his forearm. He was more depressed yesterday and when we mentioned his about few months ago to start crying. Today he looks more sound. Psych consult and orthopedic consult called. Other than that vitals are stable, blood pressure on the high side. Patient is eating and drinking well. Labs are pending. Distal on Unasyn for fever on admission, no more fevers over. Possible UTI and urine cultures pending. He's on banana back and CIWA protocol. Yesterday his CIWA score was 8-10 today, today is about 2. Objective - Vital Signs Vital signs: Vital Signs Temp 98.5 F 04/05/19 04:30 Pulse 91 04/05/19 04:30 Resp 18 04/05/19 04:30 BP 168/96 04/05/19 04:30 Pulse Ox 92 L 04/05/19 04:30 Intake & Output 04/04/19 04/05/19 04/05/19 18:59 06:59 18:59 Intake Total 1060 Balance 1060 Weight 88.451 kg Intake: Intake, IV Titration 700 Amount Ampicillin-Sulbactam 3 gm 200 In Sodium Chloride 0.9% 100 ml @ 200 mls/hr IVPB Q6H [facility] Rx#:[id number] Sodium Chloride 0.9% 1, 500 000 ml @ 100 mls/hr IV . Q10H7M ONE with Mvi, Adult No.4 with Vit K 10 ml with Thiamine 100 mg with Folic Acid 1 mg Rx#: [id number] Oral 360 Other: Voiding Method Urinal # Voids 2 - Exam GENERAL: The patient is alert and oriented x3, not in any acute distress. Well developed, well nourished. HEENT: Pupils are round and equally reacting to light. EOMI. No scleral icterus. No conjunctival pallor. Normocephalic, atraumatic. No pharyngeal erythema. No thyromegaly. CARDIOVASCULAR: S1 and S2 present. No murmurs, rubs, or gallops. PULMONARY: Chest is clear to auscultation, no wheezing or crackles. ABDOMEN: Soft, nontender, nondistended, normoactive bowel sounds. No palpable organomegaly. MUSCULOSKELETAL: No joint swelling or deformity. -EXTREMITIES: No cyanosis, clubbing, or pedal edema. left forarm in full cast, he can move and feel fingers NEUROLOGICAL: Gross neurological examination did not reveal any focal deficits. SKIN: No rashes. No petechiae - Labs CBC & Chem 7: 04/04/19 12:09 04/04/19 12:09 Labs: Abnormal Lab Results - Last 24 Hours (Table) 04/04/19 04/04/19 Range/Units 11:50 12:09 Chloride 97 L (98-107) mmol/L Creatinine 0.61 L (0.66-1.25) mg/dL Glucose 100 H (74-99) mg/dL Magnesium 1.2 L (1.6-2.3) mg/dL Total Bilirubin 1.7 H (0.2-1.3) mg/dL AST 144 H (17-59) U/L Urine Protein 1+ H (Negative) Urine Ketones 2+ H (Negative) Urine Bilirubin 1+ H (Negative) Urine WBC 6 H (0-5) /hpf Calcium Oxalate Crystal Many H (None) /hpf Urine Bacteria Rare H (None) /hpf Hyaline Casts 4 H (0-2) /lpf Urine Mucus Many H (None) /hpf Microbiology - Last 24 Hours (Table) 04/04/19 16:34 Urine Culture - Preliminary Urine,Voided
[2019-04-05 08:38] LABS: ALT 35 U/L (4-49); AST 77 U/L (17-59); African American GFR (CKD) >90 (>60 ml/min/1.73 sqM); Albumin 3.5 g/dL (3.5-5.0); Alkaline Phosphatase 93 U/L (38-126); Anion Gap 11 mmol/L; Blood Urea Nitrogen 13 mg/dL (9-20); Calcium 8.3 mg/dL (8.4-10.2); Carbon Dioxide 25 mmol/L (22-30); Chloride 100 mmol/L (98-107); Glucose 81 mg/dL (74-99); Magnesium 1.3 mg/dL (1.6-2.3); Non-African American GFR(CKD) >90 (>60 ml/min/1.73 sqM); Potassium 3.3 mmol/L (3.5-5.1); Sodium 136 mmol/L (137-145); Total Bilirubin 1.3 mg/dL (0.2-1.3); Total Protein 6.2 g/dL (6.3-8.2)
[2019-04-05] MEDS: THIAMINE 100 MG TAB PO SCH ×2 (08:43→17:12)
[2019-04-05] MEDS: FAMOTIDINE 20 MG/2 ML VIAL IV SCH ×2 (08:43→20:58)
[2019-04-05] MEDS: HEPARIN SODIUM,PORCINE 5,000 UNIT/ML 1 ML VIAL SQ SCH ×2 (08:43→21:25)
[2019-04-05] MEDS ORDERED: PANTOPRAZOLE 40 MG/10 ML VIAL IV SCH (09:00)
[2019-04-05 09:09] LABS: Basophils % (A) 0 %; Eosinophils # (A) 0.1 k/uL (0-0.7); Eosinophils % (A) 1 %; HCT 41.1 % (39.0-53.0); HGB 14.1 gm/dL (13.0-17.5); Lymphocytes % (A) 18 %; MCH 34.5 pg (25.0-35.0); MCHC 34.4 g/dL (31.0-37.0); MCV 100.3 fL (80.0-100.0); Mean Platelet Volume 8.5; Monocytes # (A) 0.3 k/uL (0-1.0); Monocytes % (A) 5 %; Neutrophils # (A) 3.9 k/uL (1.3-7.7); Neutrophils % (A) 74 %; Platelet Count 130 k/uL (150-450); RDW 12.5 % (11.5-15.5); WBC 5.2 k/uL (3.8-10.6)
--- NOTE | 2019-04-05 09:37 | P.CNOR ---
History of Present Illness - [facility] Consult date: 04/05/19 History of present illness: This patient is a 74-year-old male Past medical history of GERD, alcohol abuse, cigarette smoking that presented to [facility] ER yesterday 04/04/2019 with complaints of left wrist pain. The patient states he fell on Thursday04/02/19 while walking and talking to friends, and he tripped and landed on the cement directly into his left wrist. He states he was not drinking alcohol at this time. He states he experienced immediate pain and swelling of the left wrist, therefore he presented to [facility]. X-rays were taken at that time, and he states he was told he sustained a left wrist fracture, he was placed into a cast and instructed to follow-up with orthopedic surgery. The patient states he began to experience increasing swelling and pain in the left wrist due to the cast, therefore he presented to the [facility] emergency department for cast removal on 04/04/19. The patient was admitted under the care of internal medicine due to hypomagnesia and possible impending DTs. A new sugar tong splint was placed in the ER. Orthopedic surgery was consulted for evaluation of his left distal radius fracture. At the time of my exam, the patient complains of isolated left wrist pain. He states the splint that was placed in the ER yesterday felt too tight overnight, therefore a nurse took down the splint and placed a new. The patient states currently the splint feels okay. He denies numbness, tingling of the hand or fingers. He denies any additional complaints today. Vital signs stable. Past Medical History Past Medical History: Cancer, Chest Pain / Angina, GERD/Reflux Additional Past Medical History / Comment(s): Colon cancer 2008 with surgery, History of Any Multi-Drug Resistant Organisms: None Reported Past Surgical History: Orthopedic Surgery Additional Past Surgical History / Comment(s): L leg ORIF with hardware, R arm fracture with hardware, colectomy d/t cancer, colonoscopies, 2013 cardiac cath- mild disease, larygoscopy with polypectomy, vasectomy. Past Anesthesia/Blood Transfusion Reactions: No Reported Reaction Smoking Status: Current every day smoker - Past Family History Father History Unknown: Yes Family Medical History: Coronary Artery Disease (CAD), Myocardial Infarction (CO) Additional Family Medical History / Comment(s): Father of a CO at the age og 52 yrs. Mother Additional Family Medical History / Comment(s): Mother was a smoker/drinker and at the age of 85yrs. Medications and Allergies Home Medications Medication Instructions Recorded Confirmed Type Potassium Chloride ER [K-Dur 20] 20 meq PO DAILY 06/07/18 04/04/19 History Multivitamins, Thera [Multivitamin 1 tab PO DAILY 10/22/18 04/04/19 History (formulary)] Famotidine [Pepcid] 20 mg PO BID 30 Days #60 tab 12/23/18 04/04/19 Rx Folic Acid 1 mg PO DAILY 30 Days #30 tab 12/23/18 04/04/19 Rx Thiamine [Vitamin B-1] 100 mg PO BID-W/MEALS 30 Days #60 12/23/18 04/04/19 Rx tab levETIRAcetam [Keppra] 500 mg PO BID 30 Days #60 tab 12/23/18 04/04/19 Rx Magnesium 200 mg PO DAILY 04/04/19 04/04/19 History Allergies Allergy/AdvReac Type Severity Reaction Status Date / Time No Known Allergies Allergy Verified 04/04/19 14:23 Physical Examination On examination, the patient is sitting up in bed in no distress. He is alert and oriented 3. His breathing appears normocephalic and atraumatic. His breathing appears nonlabored. His right upper extremity appears atraumatic. On inspection of the left upper extremity there is a clean, dry, intact sugar tong splint placed. On inspection of the visible portion of the fingers and hand, there is diffuse swelling. Splint is taken down at this point of the exam. There are no open wounds or lacerations over the left wrist. No pain on palpation of the left clavicle, left shoulder, left humerus, left elbow, left hand, left fingers. There is tenderness to palpation of the distal radius. No tenderness over the anatomic snuffbox. No pain PROM of the fingers. Motor and sensory function appear intact of the left upper extremity. Radial pulse palpable, left hand and fingers are warm and well perfused with capillary fill distally. A new sugar tong splint is placed at bedside. Following splint placement, the MCP joints are free with no pain or issue with active range of motion of the fingers and thumb. Brisk capillary refill of all fingers and thumb. Results Outside x-rays taken of the left wrist on 04/02/19: Minimally displaced distal radius fracture. Chronic appearing scaphoid fracture. Left forearm 04/04/19: Minimally displaced distal radius fracture. Chronic appearing scaphoid fracture. No additional fractures identified. - Labs Labs: Abnormal Lab Results - Last 24 Hours (Table) 04/04/19 04/04/19 04/05/19 Range/Units 11:50 12:09 07:39 RBC 4.10 L (4.30-5.90) m/uL MCV 100.3 H (80.0-100.0) fL Plt Count 130 L (150-450) k/uL Sodium (137-145) mmol/L Potassium (3.5-5.1) mmol/L Chloride 97 L (98-107) mmol/L Creatinine 0.61 L (0.66-1.25) mg/dL Glucose 100 H (74-99) mg/dL Calcium (8.4-10.2) mg/dL Magnesium 1.2 L (1.6-2.3) mg/dL Total Bilirubin 1.7 H (0.2-1.3) mg/dL AST 144 H (17-59) U/L Total Protein (6.3-8.2) g/dL Urine Protein 1+ H (Negative) Urine Ketones 2+ H (Negative) Urine Bilirubin 1+ H (Negative) Urine WBC 6 H (0-5) /hpf Calcium Oxalate Crystal Many H (None) /hpf Urine Bacteria Rare H (None) /hpf Hyaline Casts 4 H (0-2) /lpf Urine Mucus Many H (None) /hpf 04/05/19 Range/Units 07:39 RBC (4.30-5.90) m/uL MCV (80.0-100.0) fL Plt Count (150-450) k/uL Sodium 136 L (137-145) mmol/L Potassium 3.3 L (3.5-5.1) mmol/L Chloride (98-107) mmol/L Creatinine 0.48 L (0.66-1.25) mg/dL Glucose (74-99) mg/dL Calcium 8.3 L (8.4-10.2) mg/dL Magnesium 1.3 L (1.6-2.3) mg/dL Total Bilirubin (0.2-1.3) mg/dL AST 77 H (17-59) U/L Total Protein 6.2 L (6.3-8.2) g/dL Urine Protein (Negative) Urine Ketones (Negative) Urine Bilirubin (Negative) Urine WBC (0-5) /hpf Calcium Oxalate Crystal (None) /hpf Urine Bacteria (None) /hpf Hyaline Casts (0-2) /lpf Urine Mucus (None) /hpf Microbiology - Last 24 Hours (Table) 04/04/19 16:34 Urine Culture - Preliminary Urine,Voided H & H 04/04/19 04/05/19 Range/Units 12:09 07:39 Hgb 15.8 14.1 (13.0-17.5) gm/dL Hct 46.4 41.1 (39.0-53.0) % Coagulation 04/04/19 Range/Units 12:09 INR 0.9 (<1.2) Result Diagrams: 04/05/19 07:39 04/05/19 07:39 Assessment and Plan Assessment: Minimally displaced distal radius fracture, left. Chronic-appearing scaphoid fracture, left. Plan: I discussed the clinical and imaging findings with the patient. There is no surgical intervention planned during this hospital stay. The patient was instructed to keep the splint in place until follow-up in the office after discharge. He should keep the left upper extremity elevated and continue active range of motion of his fingers for swelling control. Pain management per primary team. The patient currently has an appointment scheduled in the office with Dr. Rosales on 04/07/19. The patient was instructed to keep this appointment and follow up with Dr. Rosales on an outpatient basis for further treatment. The patient verbalized understanding and agreement. The patient is okay for discharge from an orthopedic standpoint.
[2019-04-05] MEDS: SODIUM CHLORIDE 0.9% 1,000 ML IV SCH ×2 (11:00→19:16)
--- NOTE | 2019-04-05 15:10 | P.CN ---
Psychiatric Consult - . Consult date: 04/05/19 Consult:: IDENTIFYING DATA: The patient is a 74-year-old male admitted to the [facility] for evaluation of an acute DVT and alcohol withdrawal. The hospitalist consult to psychiatry for evaluation of depression and homar avement. HISTORY OF PRESENT ILLNESS: I reviewed the medical record and interviewed the patient. He acknowledged that he has been feeling depressed but attributes depression to the of his and ongoing family issues. His from a myocardial infarction about one year ago. They were together for 22 years and to 7. Soon after his 's his daughter (and only child) lost her job. She has 2 children who are not supported by their fathers. He is renting a home for his daughter, her 2 children, his grandson's girlfriend and their child. He also talked about buying his daughter a truck, buying his grandson a truck and his grandson are wrecking the truck in an accident. He remains distressed about his daughter's finances, his obligation to support his adult daughter, her children and his grandchild and his grandsons problems with marijuana use. He minimized his depression and depressive symptoms. He denies that she feels depressed most days or nearly every day. He denied that he has lost enjoyment in activities. He denied a recent change in weight, periods of agitation, persistent fatigue, feelings of worthlessness, indecisiveness or impaired co ncentration or recurrent thoughts of . He described initial insomnia but alleged that his sleep is otherwise stressful. He denied persistent anxiety that he is unable to control. He denied periods of increased anxiety consistent with panic attacks. He denied obsessions or compulsions. He denied experiencing such psychotic symptoms as her paranoia, hallucinations or confusion. He has a history of an alcohol use disorder including including one DUI. He was evasive about the amount and frequency of his alcohol use but appears to have a binge pattern of alcohol use. The most recent occurring the 3 days prior to admission where he was consuming up to 1 pint of liquor per day. He talked about "over drinking" during holidays or family gatherings. He denied use of other drugs including marijuana. According to the record's CIWA scores range from 0-10. However, he received 2 mg of Ativan yesterday at 1246 under the CIWA protocol for CIWA score greater than 16. PAST PSYCHIATRIC HISTORY: He denied history of psychiatric treatment.. PAST MEDICAL HISTORY: He is a history of colon cancer status post colectomy. He recently fractured his left wrist following a trip and fall. He is history of cardiac disease and is status post cardiac cath.. ALLERGIES: NO KNOWN DRUG ALLERGIES. SUBSTANCE USE HISTORY: He has a history of heavy drinking throughout most of his adult life. His complained to him about his alcohol use. He had one DUI after his called the state police when he left home intoxicated. His only treatment episode was mandated Alcoholics Anonymous following the DUI. He was not interested in resuming participation in Alcoholics Anonymous FAMILY PSYCHIATRIC/SUBSTANCE USE HISTORY: He is unaware of family history of mental health or substance use problems. SOCIAL HISTORY: His born and raised in an intact family. He is an only child. He graduated from high school and received an educational degree from [employer]. He brought in [employer] for 5 years. During this time he continued his education and received a master's in education. 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 He has one child and 2 grandchildren. He lives alone in his own home.. MENTAL STATUS EXAM: He presented as a casually groomed pleasant elderly male with white hair. He made eye contact and attended to interview. He had a cast on his left forearm but no prominent physical abnormalities. He was not tremulous, restless or diaphoretic. He had a depressed facial expression and cried intermittently during the interview. He was alert and oriented to person, place and time. He showed psychomotor retardation but no abnormal movements. His speech was spontaneous with normal rate, rhythm and volume. His affect was depressed but reactive. He denied suicidal ideation, wishes or homicidal ideation. He did not express feelings of hopelessness, helplessness or worthlessness. He ruminated about his family problems and his concerns with his daughter and grandson. He did not express ideas reference, paranoid ideation or delusions. His thinking was abstract and associations were coherent and logical. He denied hallucinations and did not appear to be responding to internal stimuli.. IMPRESSIONS: He is a 74-year-old male who has a history of alcohol use disorder. He presented to [facility] for evaluation of possible DVT and alcohol withdrawal. He is experiencing mild to moderate alcohol withdrawal symptoms apparently uncomplicated by delirium or seizures. The hospitalist consult to psychiatry for evaluation of depression. The patient appears depressed and described some symptoms depression but overall appears to be minimizing the extent and severity of depressive symptoms. Similarly, he is minimizing the extent and severity of his alcohol use. He was embarrassed about outpatient mental health services and overtly declined referral for substance abuse treatment. He does not require inpatient psychiatric treatment at this time but would benefit from outpatient mental health and substance abuse treatment. DIAGNOSIS: Unspecified depressive disorder, rule out major depressive disorder, rule out alcohol induced depressive disorder, alcohol use disorder severe, bereavement PLAN: Consider trial of an antidepressant such as Lexapro 10 mg daily, consult social work for regarding a referral for outpatient mental health and/or substance abuse treatment services, will follow.. 04/05/19 12:27 04/05/19 15:08
[2019-04-05] MEDS ORDERED: Potassium Replacement Protocol 1 EACH MISC MISCELLANE PRN (18:55)
[2019-04-05] MEDS ORDERED: Magnesium Replacement Protocol 1 EACH MISC MISCELLANE PRN (18:55)
[2019-04-05] MEDS ORDERED: KETOROLAC 30 MG/ML 1 ML VIAL IVP PRN (18:59)
[2019-04-05] MEDS: MAGNESIUM OXIDE 400 MG TAB PO SCH (20:58)
[2019-04-05] MEDS: amLODIPine 5 MG TAB PO SCH (20:58)
[2019-04-06] MEDS: AMPICILLIN-SULBACTAM 3 GM in SODIUM CHLORIDE 0.9% 100 ML IVPB SCH ×2 (05:59→13:29)
[2019-04-06] MEDS: FAMOTIDINE 20 MG/2 ML VIAL IV SCH (08:51)
[2019-04-06] MEDS: THIAMINE 100 MG TAB PO SCH (08:51)
[2019-04-06] MEDS: amLODIPine 5 MG TAB PO SCH (08:51)
[2019-04-06] MEDS: MAGNESIUM OXIDE 400 MG TAB PO SCH (08:51)
[2019-04-06] MEDS: HEPARIN SODIUM,PORCINE 5,000 UNIT/ML 1 ML VIAL SQ SCH (08:52)
[2019-04-06 08:57] LABS: Basophils % (A) 0 %; Eosinophils # (A) 0.1 k/uL (0-0.7); Eosinophils % (A) 2 %; HCT 46.1 % (39.0-53.0); HGB 15.6 gm/dL (13.0-17.5); Lymphocytes # (A) 1.3 k/uL (1.0-4.8); Lymphocytes % (A) 23 %; MCH 33.9 pg (25.0-35.0); MCHC 33.9 g/dL (31.0-37.0); MCV 100.1 fL (80.0-100.0); Monocytes # (A) 0.3 k/uL (0-1.0); Monocytes % (A) 6 %; Neutrophils # (A) 3.7 k/uL (1.3-7.7); Neutrophils % (A) 67 %; Platelet Count 137 k/uL (150-450); RDW 12.2 % (11.5-15.5); WBC 5.5 k/uL (3.8-10.6)
[2019-04-06 09:21] LABS: ALT 38 U/L (4-49); AST 71 U/L (17-59); African American GFR (CKD) >90 (>60 ml/min/1.73 sqM); Alkaline Phosphatase 98 U/L (38-126); Anion Gap 13 mmol/L; Blood Urea Nitrogen 8 mg/dL (9-20); Calcium 8.8 mg/dL (8.4-10.2); Carbon Dioxide 25 mmol/L (22-30); Chloride 97 mmol/L (98-107); Glucose 144 mg/dL (74-99); Magnesium 1.1 mg/dL (1.6-2.3); Non-African American GFR(CKD) >90 (>60 ml/min/1.73 sqM); Potassium 3.2 mmol/L (3.5-5.1); Sodium 135 mmol/L (137-145); Total Bilirubin 1.1 mg/dL (0.2-1.3); Total Protein 6.9 g/dL (6.3-8.2)
[2019-04-06] MEDS ORDERED: ESCITALOPRAM 10 MG TAB PO SCH (10:30)
[2019-04-06] MEDS ORDERED: POTASSIUM CHLORIDE ER 20 MEQ TAB.ER PO STA (10:55)
[2019-04-06] MEDS: MAGNESIUM SULFATE-D5W PMX 1 GM in DEXTROSE/WATER 1 100ML.BAG IVPB SCH ×2 (11:06→12:03)
--- NOTE | 2019-04-06 11:45 | CDI ---
Documentation Clarification Form Date: 04/06/2019 11:43:07 AM From: Shira Jarrett RN, CCDS Admit Date: 04/04/2019 01:38:00 PM Patient Name: Hemant Clinton Visit Number: [id number] ATTENTION: The Clinical Documentation Specialists (CDI) and [facility] Coding Staff appreciate your assistance in clarifying documentation. Please respond to the clarification below the line at the bottom and electronically sign. The CDI & [facility] Coding staff will review the response and follow-up if needed. Please note: Queries are made part of the Legal Health Record. If you have any questions, please contact the author of this message via ITS. Dr. Chris Quintanilla Chronic Encephalopathy is documented in the H&P and requires further specificity. History/Risk Factors: ETOH, hypokalemia, Depression Clinical Indicators: 04/04 H&P: "Possible UTI versus other Elevated liver enzymes, mostly alcoholic liver disease Gastroesophageal reflux disease." Labs: K+ 3.3/3.2 NA+ 136/135 AST 144/77/71 Treatment: Consults: Psych IV Unasyn 3gm Q 6 hrs Librium 10 mg PO TID Lexapro 10 mg PO QD IV Ativan CIWA IV Magnesium replacement PO KCL replacement 0.9% NS @ @ 75 cc/hr In your professional opinion, can you please clarify the specific type of Encephalopathy, if known? Metabolic Encephalopathy Toxic Encephalopathy Hepatic Encephalopathy, if indicated, please clarify: Indicate if any complications: Coma, other disease process? Indicate whether acute, sub-acute or chronic? Causal Condition: Alcoholism, Hepatitis, other disease process? Other, please specify Unable to determine (Last Revision: May 2017) Metabolic Encephalopathy, multifactorial secondary to alcohol abuse, infection. Improved and patient is back to baseline MTDD
[2019-04-06 12:27] VITALS: BP 132/82; PULSE 90; RESP 19; TEMP 98.9
[2019-04-06 14:30] LABS: Magnesium 1.9 mg/dL (1.6-2.3); Potassium 3.8 mmol/L (3.5-5.1)
[2019-04-06] MEDS ORDERED: FAMOTIDINE 20 MG TAB PO SCH (21:00)
--- NOTE | 2019-04-06 22:56 | P.DS ---
Providers Date of admission: 04/04/19 13:38 Attending physician: Chris Quintanilla MD Consults: 04/04/19 14:02 Consult Physician Stat Consulting Provider: Carlos Velazquez Consult Reason/Comments: L wrist fracture Do you want consulting provider notified?: Yes 04/04/19 16:05 Consult Physician Routine Consulting Provider: Kal Black Consult Reason/Comments: derpession , bereavement for , alcoholism Do you want consulting provider notified?: Yes Primary care physician: Stated None Hospital Course: Diagnoses: Alcohol use disorder at-risk of alcohol withdrawal Left distal radial intra-articular fracture. 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 Possible UTI versus other Elevated liver enzymes, mostly alcoholic liver disease Gastroesophageal reflux disease Nicotine dependence Hypomagnesemia Hospital course: This is a pleasant 74 years old male with past medical history of gastroesophageal reflux disease, alcohol abuse, depression cigarette smoker, pt fell about 3-4 days ago , he went to a different hospital where full cast is applied to his left wrist for fracture, he was not sure what happened that day he fell but he was drinking heavily and fell.he complains from pain at his fracture site, also has some diarrhea and feel tired. he comes for concerns of delirium tremens and because his daughter could not take care of him. Patient was treated for alcohol withdrawal CIWA protocol, and on presentation his CIWA score was 8-10, however states yesterday his score is 0-2 and his last dose of Ativan was 2 days ago on 04/04/2019. Patient also placed on Librium 10 mg 3 times a day he is going to be tapered to discharge. Also has been evaluated by orthopedic for his left wrist fracture and dictating for discharge and follow-up with his orthopedic with Dr. Rosales on 04/07/19. Patient is aware of this appointment and he tends to follow-up. Psychiatric evaluated the patient for depression, and recommended continuing with antidepressant and outpatient mental health and/or substance abuse treatment service. On the day of discharge patient feels fine, is fully awake and alert, no chest pain or abdominal pain, no nausea vomiting, no change in urine or bowel habits. His pain and swelling in his left upper extremity is significantly improved. He has no other complaints and the patient was seen to be discharged home today Patient was cleared for discharge by orthopedic and psychiatric team. Patient will be discharged on tapered Librium, magnesium and short course of oral antibiotic Problems and management plan were discussed with the patient and he verbalized understanding and acceptance Patient was found stable and can be discharged home however he needs follow-up as an outpatient. Patient was instructed to follow up with PCP within one week and patient agrees to f/u with dr. Villalta at [facility], and the office will call pt for appointment. repeat Mg and K came back normal, sw provided resources for the pt for mental health f/u and substance abuse programmes Gen: patient is a AAOx3, no distress CVS: S1-S2, RRR, no murmur Lungs: B/L CTA, no wheezing Abdomen: soft, no distention, no tenderness, positive bowel sounds Extremity: no leg edema or induration. Cast in the left wrist up to the left elbow. Patient Moves His Fingers Freely and Sensation Is Intact Time spent more than 35 minutes Patient Condition at Discharge: Stable Plan - Discharge Summary Discharge Rx Participant: No New Discharge Prescriptions: New Amoxicillin/Potassium Clav [Augmentin 875-125 Tablet] 1 tab PO Q12HR 5 Days #10 tab RX: Escitalopram [Lexapro] 10 mg PO DAILY #30 tab chlordiazePOXIDE HCl [Librium] 10 mg PO DIRECTED 3 Days #6 capsule RX: Magnesium Oxide [Mag-Ox] 400 mg PO TID 7 Days #21 tab RX: amLODIPine [Norvasc] 5 mg PO DAILY #30 tab RX: Acetaminophen Tab [Tylenol] 650 mg PO Q6HR PRN tab PRN Reason: Mild Pain Or Fever > 100.5 Continue RX: Potassium Chloride ER [K-Dur 20] 20 meq PO DAILY RX: Multivitamins, Thera [Multivitamin (formulary)] 1 tab PO DAILY RX: Folic Acid 1 mg PO DAILY 30 Days #30 tab RX: Famotidine [Pepcid] 20 mg PO BID 30 Days #60 tab RX: Thiamine [Vitamin B-1] 100 mg PO BID-W/MEALS 30 Days #60 tab RX: levETIRAcetam [Keppra] 500 mg PO BID 30 Days #60 tab RX: Magnesium 200 mg PO DAILY Discharge Medication List RX: Potassium Chloride ER [K-Dur 20] 20 meq PO DAILY 06/07/18 [History] RX: Multivitamins, Thera [Multivitamin (formulary)] 1 tab PO DAILY 10/22/18 [History] RX: Famotidine [Pepcid] 20 mg PO BID 30 Days #60 tab 12/23/18 [Rx] RX: Folic Acid 1 mg PO DAILY 30 Days #30 tab 12/23/18 [Rx] RX: Thiamine [Vitamin B-1] 100 mg PO BID-W/MEALS 30 Days #60 tab 12/23/18 [Rx] RX: levETIRAcetam [Keppra] 500 mg PO BID 30 Days #60 tab 12/23/18 [Rx] RX: Magnesium 200 mg PO DAILY 04/04/19 [History] Amoxicillin/Potassium Clav [Augmentin 875-125 Tablet] 1 tab PO Q12HR 5 Days #10 tab 04/06/19 [Rx] RX: Acetaminophen Tab [Tylenol] 650 mg PO Q6HR PRN tab 04/06/19 [Rx] RX: Escitalopram [Lexapro] 10 mg PO DAILY #30 tab 04/06/19 [Rx] RX: Magnesium Oxide [Mag-Ox] 400 mg PO TID 7 Days #21 tab 04/06/19 [Rx] RX: amLODIPine [Norvasc] 5 mg PO DAILY #30 tab 04/06/19 [Rx] chlordiazePOXIDE HCl [Librium] 10 mg PO DIRECTED 3 Days #6 capsule 04/06/19 [Rx] Follow up Appointment(s)/Referral(s): Hubert Garibay MD [REFERRING] - 1 Week (Office will be in contact with patient upon discharge to set up a follow up appointment. Patients information has been faxed to office. please check you magnesium and potssium level with your doctor ) Dalton Rosales DO [Medical Doctor] - 04/07/19 10:30 am Patient Instructions/Handouts: Chlordiazepoxide (By mouth), Amoxicillin (By mouth), Amlodipine (By mouth), Escitalopram (By mouth), Magnesium Oxide (By mouth), Fall Prevention for Older Adults (DC), Abuse of Alcohol (DC), Depression in Older Adults (DC) Activity/Diet/Wound Care/Special Instructions: call out pt mental health and substance abuse treatment service . see info. sheets from clinical social worker Discharge Disposition: HOME SELF-CARE
--- NOTE | 2019-04-08 09:04 | CDI ---
Documentation Clarification Form Date: 04/08/19 From: Shirin Braden Phone: If you have a question about this query, please contact Margarita Langford, Electrical Solderer at [phone] between 8am and 5pm. Admit Date: 04/04/19 Discharge Date:04/06/19 Patient Name: Hemant Clinton Visit Number: [id number] ATTENTION: The Clinical Documentation Specialists (CDI) and [facility] Coding Staff appreciate your assistance in clarifying documentation. Please respond to the clarification below the line at the bottom and electronically sign. The CDI & [facility] Coding staff will review the response and follow-up if needed. Please note: Queries are made part of the Legal Health Record. If you have any questions, please contact the author of this message via ITS. Dear Dr. Quintanilla Conflicting documentation has been found in the medical record: Alcohol abuse is documented in the H&P, discharge summary, your 04/[address] Velazquez's consult note. Alcohol withdrawal is documented in the ED note, H&P, your 04/05 progress note, psych consult note and discharge summary. History/Risk Factors: Alcohol use up to 1 pint per day, alcoholic liver disease Clinical Indicators: Recurrent falls, very shaky Labs: Serum alcohol less than 10, magnesium 1.2, AST 144, ALT 46, MCV 99.5 - 100.3 Treatment: [facility] protocol In your opinion, what is the most clinically appropriate diagnosis for this patient? Alcohol Abuse Alcohol Dependence Other explanation of clinical findings Unable to determine (no explanation for clinical findings) (Last Revision: May 2017) Alcohol Abuse MTDD
== END 2019-04-06 15:42 | disposition home or self-care (01) | DRG 896 ==
LOC: EC 11:06 → 5NMEDONC 13:38
PROVIDERS: ADMIT Internal Medicine; ATTEND Internal Medicine
DX: F10.10 Alcohol abuse, uncomplicated (principal); G93.41 Metabolic encephalopathy; S52.572A Other intraarticular fracture of lower end of left radius, initial encounter for closed fracture; N39.0 Urinary tract infection, site not specified; R65.10 Systemic inflammatory response syndrome (SIRS) of non-infectious origin without acute organ dysfunction; E83.42 Hypomagnesemia; F17.210 Nicotine dependence, cigarettes, uncomplicated; R29.6 Repeated falls; S62.022A Displaced fracture of middle third of navicular [scaphoid] bone of left wrist, initial encounter for closed fracture; F32.9 Major depressive disorder, single episode, unspecified; K21.9 Gastro-esophageal reflux disease without esophagitis; R19.7 Diarrhea, unspecified; Z79.899 Other long term (current) drug therapy; Z85.038 Personal history of other malignant neoplasm of large intestine; Z87.19 Personal history of other diseases of the digestive system; Z82.49 Family history of ischemic heart disease and other diseases of the circulatory system; W19.XXXD Unspecified fall, subsequent encounter
CPT/HCPCS: 29125; 36415; 71046; 80053; 80320; 81001; 82150; 83605; 83690; 83735; 84132; 85025; 85610; 85730; 87040; 87086; 87502; 93005; 96361; 96365; 96366; 96368; 96375; 96376; 99285

== ENCOUNTER → 2019-04-08 | Outpatient (CLI) | payer MEDICARE | END | disposition home or self-care (01) | LOC: LABWHC1 12:05 | PROVIDERS: ATTEND Orthopaedic Surgery | DX: M25.532 Pain in left wrist (principal); S62.022K Displaced fracture of middle third of navicular [scaphoid] bone of left wrist, subsequent encounter for fracture with nonunion; S52.572A Other intraarticular fracture of lower end of left radius, initial encounter for closed fracture; E55.9 Vitamin D deficiency, unspecified | CPT/HCPCS: 36415; 82306 ==

== ENCOUNTER 2019-06-09 21:51 | Inpatient (IN) | payer MEDICARE ==
[2019-06-10] MEDS ORDERED: LORazepam 2 MG/ML INJ IV PRN (00:28)
[2019-06-10] MEDS: levETIRAcetam IV 500 MG in SODIUM CHLORIDE 0.9% 100 ML IVPB SCH ×2 (08:47→20:17)
[2019-06-10 09:02] LABS: Basophils % (A) 0 %; Eosinophils # (A) 0.1 k/uL (0-0.7); Eosinophils % (A) 1 %; HCT 44.3 % (39.0-53.0); HGB 15.2 gm/dL (13.0-17.5); Lymphocytes # (A) 3.2 k/uL (1.0-4.8); Lymphocytes % (A) 43 %; MCHC 34.3 g/dL (31.0-37.0); MCV 99.3 fL (80.0-100.0); Mean Platelet Volume 8.8; Monocytes # (A) 0.4 k/uL (0-1.0); Monocytes % (A) 6 %; Neutrophils # (A) 3.6 k/uL (1.3-7.7); Neutrophils % (A) 47 %; Platelet Count 223 k/uL (150-450); RBC 4.46 m/uL (4.30-5.90); RDW 11.2 % (11.5-15.5); WBC 7.5 k/uL (3.8-10.6)
[2019-06-10 09:18] LABS: African American GFR (CKD) >90 (>60 ml/min/1.73 sqM); Anion Gap 9 mmol/L; Blood Urea Nitrogen 20 mg/dL (9-20); Calcium 9.1 mg/dL (8.4-10.2); Carbon Dioxide 24 mmol/L (22-30); Chloride 104 mmol/L (98-107); Glucose 90 mg/dL (74-99); Non-African American GFR(CKD) >90 (>60 ml/min/1.73 sqM); Potassium 4.1 mmol/L (3.5-5.1); Sodium 137 mmol/L (137-145)
[2019-06-10] MEDS ORDERED: ALPRAZolam 0.5 MG TAB PO PRN (10:10)
--- NOTE | 2019-06-10 11:50 | P.HPIM ---
History of Present Illness 74-year-old male was transferred from outside hospital for evaluation for seizures patient denied any previous history of seizures patient had a similar episode in the past all the evaluation was negative was not started on antiseizu re medications. Patient is completely unaware of what happened the first thing heis working on his computer and next thing he knows his daughter is next to her and EMS came and patient denied any loss of bowel or bladder continence but as per the nursing staff he did have those patient denied any tongue biting patient believes he had only loss of consciousness for 1 minute and apparently patient had post ictal confusion as well patient denies that. Patient's seizure activity although is not witnessed. Patient will undergo MRI and EEG neurology will evaluate the patient. Patient denied any fever chills dysuria patient denied any headache visual problems patient denied any aura like symptoms Review of Systems REVIEW OF SYSTEMS: CONSTITUTIONAL: No fever, no malaise, no fatigue. HEENT: No recent visual problems or hearing problems. Denied any sore throat. CARDIOVASCULAR: No chest pain, orthopnea, PND, no palpitations, no syncope. PULMONARY: No shortness of breath, no cough, no hemoptysis. GASTROINTESTINAL: No diarrhea, no nausea, no vomiting, no abdominal pain. NEUROLOGICAL: No headaches, no weakness, no numbness. HEMATOLOGICAL: Denies any bleeding or petechiae. GENITOURINARY: Denies any burning micturition, frequency, or urgency. MUSCULOSKELETAL/RHEUMATOLOGICAL: Denies any joint pain, swelling, or any muscle pain. ENDOCRINE: Denies any polyuria or polydipsia. The rest of the 14-point review of systems is negative. Past Medical History Past Medical History: Cancer, Chest Pain / Angina, GERD/Reflux Additional Past Medical History / Comment(s): Colon cancer 2008 with surgery,. L Wrist fracture casr removed May 2019 History of Any Multi-Drug Resistant Organisms: None Reported Past Surgical History: Orthopedic Surgery Additional Past Surgical History / Comment(s): L leg ORIF with hardware, R arm fracture with hardware, colectomy d/t cancer, colonoscopies, 2013 cardiac cath- mild disease, larygoscopy with polypectomy, vasectomy. Past Anesthesia/Blood Transfusion Reactions: No Reported Reaction Past Psychological History: Anxiety, Depression Additional Psychological History / Comment(s): Pt states his spouse 8 months ago and that he is depressed but not suicidal. He now lives with his grandson and has a dog. His ruperto and grandchild live 4 miles away. He [address] not drive, his spouse was the tank wagon driver but he believes he will be able to arrange rides. He has a cane which he uses prn. Smoking Status: Current every day smoker Past Alcohol Use History: Daily, Heavy Additional Past Alcohol Use History / Comment(s): Pt states drinks about a pint a day of liquor. States sometimes more, sometimes less Past Drug Use History: None Reported Additional Drug Use History / Comment(s): Pt. reports that he has cut down to 4 cigarettes per day and that he has not used alcohol in 4 months - Past Family History Father History Unknown: Yes Family Medical History: Coronary Artery Disease (CAD), Myocardial Infarction (NC) Additional Family Medical History / Comment(s): Father of a NC at the age og 52 yrs. Mother Additional Family Medical History / Comment(s): Mother was a smoker/drinker and at the age of 85yrs. Medications and Allergies Home Medications Medication Instructions Recorded Confirmed Type Multivitamins, Thera [Multivitamin 1 tab PO DAILY 10/22/18 06/10/19 History (formulary)] ALPRAZolam [Xanax] 0.5 mg PO BID PRN 06/09/19 06/10/19 History Escitalopram [Lexapro] 10 mg PO DAILY 06/09/19 06/10/19 History amLODIPine BESYLATE 5 mg PO DAILY 06/09/19 06/10/19 History Magnesium Oxide [Mag-Ox] 400 mg PO DAILY 06/10/19 06/10/19 History Oyster Shell 500mg 500 mg PO TID 06/10/19 06/10/19 History Allergies Allergy/AdvReac Type Severity Reaction Status Date / Time No Known Allergies Allergy Verified 06/10/19 08:47 Physical Exam Vitals: Vital Signs Temp Pulse Resp BP Pulse Ox 06/10/19 07:40 98.5 F 73 15 111/66 96 06/09/19 23:41 98.9 F 75 18 124/72 95 Intake and Output 06/09/19 06/10/19 06/10/19 22:59 06:59 14:59 Intake Total 180 Balance 180 Intake: Oral 180 Other: Voiding Method Toilet # Voids 0 Weight 90.5 kg PHYSICAL EXAMINATION: GENERAL: The patient is alert and oriented x3, not in any acute distress. Well developed, well nourished. HEENT: Pupils are round and equally reacting to light. EOMI. No scleral icterus. No conjunctival pallor. Normocephalic, atraumatic. No pharyngeal erythema. No thyromegaly. CARDIOVASCULAR: S1 and S2 present. No murmurs, rubs, or gallops. PULMONARY: Chest is clear to auscultation, no wheezing or crackles. ABDOMEN: Soft, nontender, nondistended, normoactive bowel sounds. No palpable organomegaly. MUSCULOSKELETAL: No joint swelling or deformity. EXTREMITIES: No cyanosis, clubbing, or pedal edema. NEUROLOGICAL: Gross neurological examination did not reveal any focal deficits. SKIN: No rashes. Results CBC & Chem 7: 06/10/19 07:46 06/10/19 07:46 Labs: Abnormal Lab Results - Last 24 Hours (Table) 06/10/19 Range/Units 07:46 RDW 11.2 L (11.5-15.5) % Thrombosis Risk Factor Assmnt - Choose All That Apply Any of the Below Risk Factors Present?: Yes Each Factor Represents 1 point: Obesity (BMI >25) Each Risk Factor Represents 2 Points: Age 61-74 years Thrombosis Risk Factor Assessment Total Risk Factor Score: 3 Thrombosis Risk Factor Assessment Level: Moderate Risk Assessment and Plan Plan: -Possible new-onset seizure further workup with MRI EEG as mentioned above patient was started on Keppra as is the second episode patient probably cannot drive for 6 months until he seizure-free. Patient may need to be on antiseizure medications even if all the workup is negative. Neurology will evaluate the patient. -Gastroesophageal reflux disease -Coronary artery disease -Hypertension patient blood pressures low-normal because of which I'll hold off on amlodipine monitor his blood pressures -Depression and anxiety For above mentioned chronic problems patient will be resumed and continued on appropriate home medications
--- NOTE | 2019-06-10 13:39 | MR ---
EXAMINATION TYPE: MR brain wo/w con DATE OF EXAM: 06/10/2019 COMPARISON: Outside CT dated 04/02/2019 , 12/21/2018 and 06/03/2018 HISTORY: Seizure. Fast brain protocol was utilized after the patient was instructed to remain still m ultiple times. TECHNIQUE: Multiplanar, multisequence images of the brain and brainstem is performed without and with IV contras t, utilizing 9 mL intravenous Gadavist . FINDINGS: Diffusion weighted images demonstrate no evidence of a recent infarct or other diffusion ab normality. Fluid attenuated T2 hyperintense and FLAIR hypointense left temporal lobe cystic lesion me asures 2.9 cm, unchanged from the most remote exam available of 06/03/2018. This appears intra-axial a nd coronal imaging and demonstrates mild surrounding vasogenic edema of the left temporal lobe. There is no abnormal enhancement seen of the structure. There is no extra-axial fluid collection. Few scattered foci of T2/FLAIR hyperintensity are seen in t he periventricular subcortical white matter most commonly on the basis of chronic microangiopathy. T he ventricular system and cisternal spaces are overall symmetrically prominent compatible with age-re lated volume loss. Midline structures demonstrate normal morphology. The craniocervical junction appears within normal limits. Post contrast images demonstrate no abnormal enhancement. The dural venous sinuses appear pa tent. The visualized sinuses demonstrate minimal mucosal thickening of the ethmoid and maxillary sinu ses. IMPRESSION: Limited exam due to patient motion despite repeat imaging and fast protocol. 1. No acute infarct or midline shift. 2. 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 The size is also unchanged from prior exams. Intra-axial cystic likely benign neoplasm is possible with no abnormal enhancement.
--- NOTE | 2019-06-10 21:51 | EEG ---
ELECTROENCEPHALOGRAM REPORT DATE OF SERVICE: 06/10/2019 HISTORY: This is an inpatient EEG performed on a 74-year-old gentleman who was brought into the hospital for alteration of consciousness. The family thought possibly he may have had a seizure. There is no known history of seizures prior. TECHNICAL REPORT: This is an inpatient EEG performed on the [employer] EEG monitor with electrodes placed according to the international 10-20 system and a single EKG channel. Simultaneous video EEG monitoring was performed. This EEG was reviewed in both longitudinal bipolar, common average referential and transverse montages. Photic stimulation was performed. Hyperventilation was not performed. The recording begins with excessive motion and movement artifact against a wake background. Immediately at the onset of the recording and throughout to the end of the recording there is irregular heart rate noted consisting of PVCs and block. Wakefulness is characterized by the appearance of low moderate 8 to maximum 9 Hz posterior-dominant rhythm that attenuates with eye opening. Low amplitude beta activity is prominent over the anterior and central head regions. Intermittent muscle and movement artifacts contaminate the tracing. The patient transitions to stage I sleep/drowsiness beginning at approximately 14:45:08. Noise in the hallway causes frequent eye blinking and a brief arousal. Photic stimulation was performed at various flash frequencies and failed to elicit a consistent driving response. Throughout photic stimulation, the EKG continued to be abnormal. The patient transitioned from drowsiness back to full wakefulness toward the end of the recording. This is associated with the return of a well-modulated low to moderate amplitude 8 Hz posterior-dominant rhythm. Deeper stages of sleep were not achieved. IMPRESSION: This is an abnormal wake drowsy EEG study due to an abnormal EKG. Frequent PVCs and possibly conduction block was noted. The nurse was notified on the floor immediately for a 12-lead EKG and ordered to have the patient placed on telemetry. The overall wake background and brief drowsiness was considered normal for the patient's stated age. No epileptiform discharges, electrographic seizures or clinical seizures were recorded. No abnormalities occurred during photic stimulation. No asymmetry was noted between the hemispheres. CLINICAL CORRELATION: This EEG, though it does not have any evidence of epileptiform activity, does not rule out an underlying seizure tendency. If clinically indicated, a more prolonged overnight study or serial EEGs is strongly recommended. Neuro imaging studies are also recommended to rule out possibly an underlying structural mass lesion. The abnormal EEG warrants further investigation with cardiology evaluation, the patient placed on telemetry and a 12-lead EKG. MMTULIOL / IJN: [id number] / [facility]
[2019-06-10] MEDS ORDERED: OYSTER SHELL PO SCH (22:00)
[2019-06-11 07:40] VITALS: RESP 17
[2019-06-11] MEDS ORDERED: MULTIVITAMINS, THERA 1 EACH TAB PO SCH (09:00)
[2019-06-11] MEDS ORDERED: MAGNESIUM OXIDE 400 MG TAB PO SCH (09:00)
[2019-06-11] MEDS ORDERED: amLODIPine 5 MG TAB PO SCH (09:00)
[2019-06-11] MEDS ORDERED: ESCITALOPRAM 10 MG TAB PO SCH (09:00)
[2019-06-11] MEDS: levETIRAcetam IV 500 MG in SODIUM CHLORIDE 0.9% 100 ML IVPB SCH (09:04)
--- NOTE | 2019-06-11 14:08 | P.DS ---
Providers Date of admission: 06/09/19 23:34 Attending physician: Christian Carias Consults: 06/10/19 01:26 Consult Physician Routine Consulting Provider: Crystal Hernandez Consult Reason/Comments: Witnessed seizure 06/09/2019 Do you want consulting provider notified?: Yes Placement Type Exists?: Yes Primary care physician: Stated None Hospital Course: 74-year-old male was transferred from outside hospital for evaluation for seizures patient denied any previous history of seizures patient had a similar episode in the past all the evaluation was negative was not started on antiseizure medications. Patient is completely unaware of what happened the first thing heis working on his computer and next thing he knows his daughter is next to her and EMS came and patient denied any loss of bowel or bladder continence but as per the nursing staff he did have those patient denied any tongue biting patient believes he had only loss of consciousness for 1 minute and apparently patient had post ictal confusion as well patient denies that. Patient's seizure activity although is not witnessed. Patient will undergo MRI and EEG neurology will evaluate the patient. Patient denied any fever chills dysuria patient denied any headache visual problems patient denied any aura like symptoms 06/11/2019 Patient with symptoms of loss of consciousness was evaluated for seizure. Patient had an MRI which showed some anterior left temporal lobe encephalomalacia, which can cause seizures seizure didn't show any significant abnormality although there is some PVCs on the EKG and telemetry because of this reason neurology VC believes patient may have had a syncope from cardiac arrhythmia are a syncope seizure because of which I'll obtain echocardiogram and will order an event monitor as well both of these can be done as an outpatient. If cleared by neurology patient will be discharged today as patient wanted to go home today. I'll leave the decision starting the patient on antiseizure medications because of his predisposition to seizure because of the above- mentioned encephalomalacia. PHYSICAL EXAMINATION: GENERAL: The patient is alert and oriented x3, not in any acute distress. Well developed, well nourished. HEENT: Pupils are round and equally reacting to light. EOMI. No scleral icterus. No conjunctival pallor. Normocephalic, atraumatic. No pharyngeal erythema. No thyromegaly. CARDIOVASCULAR: S1 and S2 present. No murmurs, rubs, or gallops. PULMONARY: Chest is clear to auscultation, no wheezing or crackles. ABDOMEN: Soft, nontender, nondistended, normoactive bowel sounds. No palpable organomegaly. MUSCULOSKELETAL: No joint swelling or deformity. EXTREMITIES: No cyanosis, clubbing, or pedal edema. NEUROLOGICAL: Gross neurological examination did not reveal any focal deficits. SKIN: No rashes. Assessment and Plan Plan: -Possible new-onset seizure management as mentioned above workup as mentioned above although syncope or syncope related seizure cannot be ruled out -Gastroesophageal reflux disease -Coronary artery disease -Hypertension patient blood pressures low-normal because of which I'll hold off on amlodipine monitor his blood pressures -Depression and anxiety Plan - Discharge Summary Discharge Rx Participant: Yes New Discharge Prescriptions: New levETIRAcetam [Keppra] 500 mg PO BID #60 tab Continue Multivitamins, Thera [Multivitamin (formulary)] 1 tab PO DAILY Escitalopram [Lexapro] 10 mg PO DAILY ALPRAZolam [Xanax] 0.5 mg PO BID PRN PRN Reason: Anxiety Magnesium Oxide [Mag-Ox] 400 mg PO DAILY Oyster Shell 500mg 500 mg PO TID Discontinued amLODIPine BESYLATE 5 mg PO DAILY Discharge Medication List Multivitamins, Thera [Multivitamin (formulary)] 1 tab PO DAILY 10/22/18 [History] ALPRAZolam [Xanax] 0.5 mg PO BID PRN 06/09/19 [History] Escitalopram [Lexapro] 10 mg PO DAILY 06/09/19 [History] Magnesium Oxide [Mag-Ox] 400 mg PO DAILY 06/10/19 [History] Oyster Shell 500mg 500 mg PO TID 06/10/19 [History] levETIRAcetam [Keppra] 500 mg PO BID #60 tab 06/11/19 [Rx] Discharge Disposition: HOME SELF-CARE
[2019-06-11] MEDS: MAGNESIUM SULFATE-D5W PMX 1 GM in DEXTROSE/WATER 1 100ML.BAG IVPB SCH ×2 (14:23→15:42)
[2019-06-11 15:08] VITALS: BP 113/66; PULSE 77; TEMP 99.1
--- NOTE | 2019-06-11 17:44 | P.CNNES ---
History of Present Illness Consult date: 06/11/19 Reason for Consult: Beak through seizures History of Present Illness: This is a new neurology consult for further advice and recommendations for a 74-year-old gentleman who was brought in for recurrent seizure activity. His daughter provides the full history initially. His daughter reports that he began having seizures often associated with alcohol ingestion. The patient never had a problem with alcohol up until 12 years ago after he was involved in a head injury where he fell down concrete stairs with a large humidifier. He was hospitalized and loss of consciousness. This occurred in [facility]. Following this his family noted that there was significant personality changes. He would become very agitated withdrawn everything seemed to bother him. It was after this discharge from the hospital for the head injury that he began drinking. Not long after that he lost his 30 years. He was not able to return back to work and sunk into more depression seeking alcohol. He has attempted to go through AA without any success. He'll go through periods of abstinence then become depressed drink and then have a seizure. This patient prior to admission now however had been 3 months sober. Apparently he has been on now Xanax by his primary care physician to address the anxiety which his daughter believes has helped immensely. This seizure however is difficult to see what could have provoked. She did reports that he currently he [place] He was on his computer and when other families members came by to see him they found him on the floor convulsing. They report the convulsions lasted approximately 30 seconds. 911 was activated. By the time his daughter got to his home which was within 5 minutes he was found to be lethargic and confused. He was however able to answer some questions. He had not been able to do this postictally on other seizures. This seizure was involved with a bladder incontinence but without blood bowel incontinence. No tongue biting reported. Since the patient's admission he's been on Keppra 500 mg IV every 12. He's had an EEG that did not show any evidence of epileptiform activity. However the EKG was abnormal with frequent PVCs warranting further workup. Presently the patient is in good spirits and looking forward to going home. He understands that it is imperative that he remain abstinent and understands that if he begins drinking again that his family will be forced to place him in senior living care. He does not currently drive and has full support of his family for his needs. Past Medical History Past Medical History: Cancer, Chest Pain / Angina, GERD/Reflux Additional Past Medical History / Comment(s): Colon cancer 2008 with surgery,. L Wrist fracture casr removed May 2019 History of Any Multi-Drug Resistant Organisms: None Reported Past Surgical History: Orthopedic Surgery Additional Past Surgical History / Comment(s): L leg ORIF with hardware, R arm fracture with hardware, colectomy d/t cancer, colonoscopies, 2013 cardiac cath- mild disease, larygoscopy with polypectomy, vasectomy. Past Anesthesia/Blood Transfusion Reactions: No Reported Reaction Past Psychological History: Anxiety, Depression Additional Psychological History / Comment(s): Pt states his spouse 8 months ago and that he is depressed but not suicidal. He now lives with his grandson and has a dog. His ruperto and grandchild live 4 miles away. He does not drive, his spouse was the local company tanker driver but he believes he will be able to arrange rides. He has a cane which he uses prn. Smoking Status: Current every day smoker Past Alcohol Use History: Daily, Heavy Additional Past Alcohol Use History / Comment(s): Pt states drinks about a pint a day of liquor. States sometimes more, sometimes less Past Drug Use History: None Reported Additional Drug Use History / Comment(s): Pt. reports that he has cut down to 4 cigarettes per day and that he has not used alcohol in 4 months - Past Family History Father History Unknown: Yes Family Medical History: Coronary Artery Disease (CAD), Myocardial Infarction (LA) Additional Family Medical History / Comment(s): Father of a LA at the age og 52 yrs. Mother Additional Family Medical History / Comment(s): Mother was a smoker/drinker and at the age of 85yrs. Medications and Allergies Home Medications Medication Instructions Recorded Confirmed Type Multivitamins, Thera [Multivitamin 1 tab PO DAILY 10/22/18 06/10/19 History (formulary)] ALPRAZolam [Xanax] 0.5 mg PO BID PRN 06/09/19 06/10/19 History Escitalopram [Lexapro] 10 mg PO DAILY 06/09/19 06/10/19 History Magnesium Oxide [Mag-Ox] 400 mg PO DAILY 06/10/19 06/10/19 History Oyster Shell 500mg 500 mg PO TID 06/10/19 06/10/19 History levETIRAcetam [Keppra] 500 mg PO BID #60 tab 06/11/19 Rx Allergies Allergy/AdvReac Type Severity Reaction Status Date / Time No Known Allergies Allergy Verified 06/10/19 08:47 Physical Examination - Vital Signs Vital Signs: Vital Signs Temp Pulse Resp BP Pulse Ox 06/11/19 15:00 99.1 F 77 17 113/66 92 L 06/11/19 07:39 98.0 F 73 17 107/71 94 L 06/11/19 04:00 18 06/11/19 01:55 98.9 F 66 18 102/60 94 L 06/10/19 19:03 18 06/10/19 19:00 99.0 F 80 18 105/64 Intake and Output 06/11/19 06/11/19 06/11/19 06:59 14:59 22:59 Intake Total 400 Balance 400 Intake: Intake, IV Titration 100 Amount levETIRAcetam IV 500 mg 100 In Sodium Chloride 0.9% 100 ml @ 400 mls/hr IVPB Q12HR [facility] Rx#:[id number] Oral 300 Other: Voiding Method Toilet # Voids 2 1 patient examined chart reviewed. Gen. exam: No acute distress. HEENT: Clear sclera clear oropharynx neck supple. Oropharynx clear. Bert Gallegos grade 3. Next line pupils 2 mm equally reactive to light and accommodation. Pulses radial pedal pulses are equal and symmetric. Extremities: No edema noted in the hands or feet. Next Neurological exam Mental status awake alert oriented times place person. Speech fluent. Affect appropriate. Cranial nerves: Cranial nerves III through XII are intact. Motor examination: Normal muscle bulk and tone throughout. Strength is 5 out of 5 throughout. Pronator drift negative. No fasciculations or tremor noted. Coordination testing: Intact finger to nose testing with eyes open and eyes darrius sed. No dysmetria noted. Deep tendon reflexes trace throughout. Sensory examination grossly intact to light touch throughout. Gait examination: Patient is able to walk slightly wide-based but not ataxic. Results - Laboratory Findings CBC and BMP: 06/10/19 07:46 06/10/19 07:46 Abnormal Lab Findings: Abnormal Labs 06/10/19 07:46 RDW 11.2 L Assessment and Plan Assessment: ASSESSMENT: this is a 74-year-old gentleman who was admitted for recurrent seizures. He has a known history for head injury 12 years ago. Following this head injury he began drinking and intermittently with drinking would have seizure activity. When he was on seizure medicine he would be noncompliant this would often be associated with drinking. He has been abstinent off of alcohol for the past 3 months and is also on now anxiety medication. This is helped him regulate his mood greatly according to his daughter. This seizure however is concerning because technically it could be described as an unprovoked seizure. With that being said this patient MRI does correspond to encephalomalacia involving the temporal lobe. The temporal lobe is a vulnerable area of the brain at high risk for seizure activity. Particular complex partial seizures with and without secondary generalization. I reviewed the MRI this lesion looks very old. It is unclear if this is a structural mass lesion with vasogenic edema versus simply a solid mass structure of scar tissue. Nevertheless this patient does require close follow-up with a neurologist preferably an epileptic pathologist as well as a neurosurgeon to closely monitor the progression of this area. This area is highly vulnerable for being an epileptogenic focus therefore this patient must remain on anticonvulsant medication. I discussed this with the patient and his daughter that he has epilepsy. This is a lifelong treatment on anticonvulsant medication. We discussed risk factors for lowering seizure threshold: Sleep deprivation, stress and improper eating poor healthly lifestyle choices. The patient's neurological examination today is nonfocal. The patient can be cleared by neurology for discharge. RECOMMENDATIONS 1. 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 What is reassuring is the lesion is non-enhancing. I would recommend the patient be followed by a epileptologist. Follow up MRI with & wo Moe IN 6 MONTHS, as well as a PET scan 2. Follow up with behavioral health for anxiety management 3. Patient to be discharged home on Keppra 500mg po BID 4. Rectal Valium 15mg twin prashant. insert 1 suppository rectally for any prolonged seizure lasting more than 3 minutes. Call 911. A prescription was provided to the patient's nurse prior to discharge.
== END 2019-06-11 18:25 | disposition home or self-care (01) | DRG 100 ==
LOC: 4SSUR 23:34
PROVIDERS: ADMIT Internal Medicine; ATTEND Internal Medicine
DX: G40.209 Localization-related (focal) (partial) symptomatic epilepsy and epileptic syndromes with complex partial seizures, not intractable, without status epilepticus (principal); G93.6 Cerebral edema; G93.0 Cerebral cysts; G93.89 Other specified disorders of brain; F32.9 Major depressive disorder, single episode, unspecified; R32 Unspecified urinary incontinence; K21.9 Gastro-esophageal reflux disease without esophagitis; I25.10 Atherosclerotic heart disease of native coronary artery without angina pectoris; I10 Essential (primary) hypertension; F41.9 Anxiety disorder, unspecified; F17.210 Nicotine dependence, cigarettes, uncomplicated; Z71.6 Tobacco abuse counseling; Z79.899 Other long term (current) drug therapy; Z87.820 Personal history of traumatic brain injury; Z85.038 Personal history of other malignant neoplasm of large intestine; Z87.81 Personal history of (healed) traumatic fracture; Z98.52 Vasectomy status; Z87.09 Personal history of other diseases of the respiratory system; Z90.49 Acquired absence of other specified parts of digestive tract; Z98.890 Other specified postprocedural states; Z82.49 Family history of ischemic heart disease and other diseases of the circulatory system; Z81.2 Family history of tobacco abuse and dependence; Z81.1 Family history of alcohol abuse and dependence
CPT/HCPCS: 70553; 80048; 80177; 83735; 85025; 93005; 93270; 95816

== ENCOUNTER 2021-02-05 00:25 | Emergency (ER) | payer MEDICARE ==
[2021-02-05 00:38] VITALS: RESP 18; TEMP 97.7
--- NOTE | 2021-02-05 00:57 | ED ---
Fall HPI - General Chief Complaint: Fall Stated Complaint: Fall Time Seen by Provider: 02/05/21 00:33 Source: EMS Mode of arrival: EMS - History of Present Illness Initial Comments: This patient is a 75-year-old man who is brought to have evaluation after he had a fall. The patient states that he was walking on the sidewalk and that there was some snow or ice. She states that his dog had pulled leash and then he lost his balance and fell. The patient states that he been drinking and that may have contributed. Patient complains of pain to the left shoulder, the back, and the left ribs. Denies loss of consciousness. Denies other aches and pains. MD Complaint: fall Onset/Timin -: hour(s) Fall From: standing When Fall Occurred: 1 hour QUILL REAMER Fall Witnessed: no Place Fall Occurred: street Loss of Consciousness: none Prolonged Down Time?: no Symptoms Prior to Fall: none Location: back Location - Extremities: Left: Shoulder Severity: severe Quality: sharp Context: tripped/slipped Associated Symptoms: denies - Related Data Home Medications Medication Instructions Recorded Confirmed Multivitamins, Thera [Multivitamin 1 tab PO DAILY 10/22/18 06/10/19 (formulary)] ALPRAZolam [Xanax] 0.5 mg PO BID PRN 06/09/19 06/10/19 Escitalopram [Lexapro] 10 mg PO DAILY 06/09/19 06/10/19 Magnesium Oxide [Mag-Ox] 400 mg PO DAILY 06/10/19 06/10/19 Oyster Shell 500mg 500 mg PO TID 06/10/19 06/10/19 Previous Rx's Medication Instructions Recorded levETIRAcetam [Keppra] 500 mg PO BID #60 tab 06/11/19 HYDROcodone/APAP 5-325MG [[place] 1 tab PO Q4HR PRN 3 Days #18 tab 02/05/21 5-325] Ibuprofen 800 mg PO TID #20 tablet 02/05/21 Allergies Allergy/AdvReac Type Severity Reaction Status Date / Time No Known Allergies Allergy Verified 02/05/21 00:38 Review of Systems ROS Statement: Those systems with pertinent positive or pertinent negative responses have been documented in the HPI. ROS Other: All systems not noted in ROS Statement are negative. Constitutional: Denies: fever, chills Respiratory: Denies: cough, dyspnea Cardiovascular: Denies: chest pain, palpitations Gastrointestinal: Denies: abdominal pain, vomiting, diarrhea Genitourinary: Denies: dysuria, testicular pain Musculoskeletal: Reports: arthralgia. Denies: back pain Skin: Denies: rash Neurological: Denies: headache, weakness, numbness Hematological/Lymphatic: Denies: easy bleeding Past Medical History Past Medical History: Cancer, Chest Pain / Angina, GERD/Reflux Additional Past Medical History / Comment(s): Colon cancer 2008 with surgery,. L Wrist fracture casr removed May 2019 History of Any Multi-Drug Resistant Organisms: None Reported Past Surgical History: Orthopedic Surgery Additional Past Surgical History / Comment(s): L leg ORIF with hardware, R arm fracture with hardware, colectomy d/t cancer, colonoscopies, 2013 cardiac cath-m ild disease, larygoscopy with polypectomy, vasectomy. Past Anesthesia/Blood Transfusion Reactions: No Reported Reaction Past Psychological History: Anxiety, Depression Smoking Status: Current every day smoker Past Alcohol Use History: Daily, Heavy Past Drug Use History: None Reported - Past Family History Father History Unknown: Yes Family Medical History: Coronary Artery Disease (CAD), Myocardial Infarction (ID) Additional Family Medical History / Comment(s): Father of a ID at the age og 52 yrs. Mother Additional Family Medical History / Comment(s): Mother was a smoker/drinker and at the age of 85yrs. General Exam Limitations: no limitations General appearance: alert, in no apparent distress, appears intoxicated Head exam: Present: atraumatic, normocephalic Eye exam: Present: normal appearance. Absent: scleral icterus, conjunctival injection ENT exam: Present: normal oropharynx Neck exam: Present: normal inspection Respiratory exam: Present: normal lung sounds bilaterally, chest wall tenderness. Absent: respiratory distress, wheezes, rales, rhonchi, stridor, accessory muscle use Cardiovascular Exam: Present: regular rate, normal rhythm, normal heart sounds. Absent: systolic murmur, diastolic murmur, rubs, gallop GI/Abdominal exam: Present: soft. Absent: distended, tenderness, guarding, rebound, rigid, mass Extremities exam: Present: normal inspection, tenderness (Left shoulder), normal capillary refill. Absent: pedal edema, calf tenderness Back exam: Present: normal inspection, vertebral tenderness (Approximately T4 to T6.). Absent: CVA tenderness (R), CVA tenderness (L) Neurological exam: Present: alert, oriented X3 Skin exam: Present: warm, dry, intact, normal color. Absent: rash Course Vital Signs 02/05/21 00:29 Temperature 97.7 F Pulse Rate 81 Respiratory 18 Rate Blood Pressure 119/77 O2 Sat by Pulse 94 L Oximetry Disposition Clinical Impression: Fall, Humerus fracture Disposition: HOME SELF-CARE Condition: Good Instructions (If sedation given, give patient instructions): Arm Fracture in Adults (ED), Fall Prevention for Older Adults (ED) Prescriptions: Ibuprofen 800 mg PO TID #20 tablet HYDROcodone/APAP 5-325MG [[place] 5-325] 1 tab PO Q4HR PRN 3 Days #18 tab PRN Reason: Pain Is patient prescribed a controlled substance at d/c from ED?: Yes When asked, does pt state using other controlled substances?: No If prescribed controlled substance>3 days was MAPS reviewed?: Prescribed <3 Days If opioid is for acute pain is fill amount 7 days or less?: Yes If Rx opioid, was Start Talking consent form obtained?: Yes Referrals: None,Stated [Primary Care Provider] - 1-2 days Carlos Velazquez MD [Medical Doctor] - 1-2 days
--- NOTE | 2021-02-05 01:44 | CT ---
EXAMINATION TYPE: CT brain yosvanyine wo con DATE OF EXAM: 02/05/2021 COMPARISON: 08/09/2018 HISTORY: fall CT DLP: 1461.7 mGycm Automated exposure control for dose reduction was used. Images obtained of the brain and cervical spine without contrast. There is cerebral cortical atrophy. There is hypodensity in the inferior left temporal lobe consistent with an old infarct. There is no mass effect or midline shift. There is no sign of intracranial hemorrhage. Calvarium is intact. The s kull base is intact. There is normal aeration of the mastoid sinuses. There is mild mucosal thickenin g in the ethmoid air cells. The cervical Normal alignment. There is degenerative disc space narrowing at C5-6. Posterior elements are intact. There is mild hypertrophic facet arthropathy. There is no cervical compression fracture. IMPRESSION: Spondylosis at C5-6. No fracture. No change. 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 No change compared to old exam.
--- NOTE | 2021-02-05 01:58 | CT ---
EXAMINATION TYPE: CT chest abdomen wo con DATE OF EXAM: 02/05/2021 COMPARISON: 08/09/2018 HISTORY: fall CT DLP: 827.8 mGycm Automated exposure control for dose reduction was used. Images obtained from the thoracic inlet to the iliac crests without contrast. FINDINGS: The lungs are clear of infiltrate. There is no evidence of a pulmonary mass. There is no pleural effu liz or pneumothorax. There is coronary artery calcification. There is no mediastinal adenopathy. The re are no hilar masses. Thoracic aorta is atheromatous. Heart size is normal. There is no pericardial effusion. Liver spleen stomach pancreas and gallbladder appear intact. The bile ducts are nondilated. There is no adrenal mass. There is some renal vascular calcification. Nonobstructing renal calculi al so possible. There is a 3 cm cyst lateral right kidney. There is no retroperitoneal adenopathy. Abnor mal aorta is atheromatous. The ureters are not dilated. There is no mesenteric edema. There is no asc ites or free air. There is no bowel obstruction. There is previous surgery at the cecum. Thoracic and lumbar vertebrae have normal alignment. There is compression deformity of L2 T10 and T8 and T6 vertebra up to 50%. There is intact sternum. There is deformity of the humeral neck consistent with nondisplaced fracture. There is evidence for s ome old healed posterior left rib fractures. I see no definite acute rib fracture. The clavicles are intact. Scapula appear intact. IMPRESSION: Nondisplaced left humeral neck fracture. Multiple osteoporotic type compression fractures in the thoracic and lumbar spine which show some pro gression compared to old exam. Atherosclerotic vascular disease.
--- NOTE | 2021-02-05 02:18 | XR ---
EXAMINATION TYPE: XR shoulder complete LT DATE OF EXAM: 02/05/2021 COMPARISON: NONE HISTORY: Fall. Pain TECHNIQUE: 3 views FINDINGS: There is some mild deformity of the humeral head at the greater tuberosity suggestive of a nondisplaced fracture. There is no dislocation. The scapula is intact. AC joint is intact. IMPRESSION: There is evidence for acute nondisplaced hairline humeral neck fracture.
[2021-02-05] MEDS ORDERED: IBUPROFEN 400 MG TAB PO STA (02:20)
[2021-02-05] MEDS ORDERED: HYDROcodone/APAP 5-325MG 1 EACH TAB PO STA (02:20)
[2021-02-05] MEDS ORDERED: MORPHINE SULFATE 4 MG/ML SYRINGE IV STA (02:26)
[2021-02-05 02:36] VITALS: BP 109/74; PULSE 89
== END 2021-02-05 07:02 | disposition home or self-care (01) ==
LOC: EC 00:25
DX: S42.302A Unspecified fracture of shaft of humerus, left arm, initial encounter for closed fracture (principal); M54.6 Pain in thoracic spine; K21.9 Gastro-esophageal reflux disease without esophagitis; F32.A Depression, unspecified; F41.9 Anxiety disorder, unspecified; F17.200 Nicotine dependence, unspecified, uncomplicated; Z79.899 Other long term (current) drug therapy; W01.0XXA Fall on same level from slipping, tripping and stumbling without subsequent striking against object, initial encounter; Y92.480 Sidewalk as the place of occurrence of the external cause
CPT/HCPCS: 73030; 72125; 70450; 71250; 74150; 99284; 96374; J2270